=== PATIENT | male | born 1965 | race Caucasian/White ===

== ENCOUNTER 2017-06-23 00:42 | Inpatient (IN) | payer SELFPAY ==
[2017-06-23] MEDS ORDERED: NORMAL SALINE 1000 ML 1,000 ML IV ONE (00:47)
[2017-06-23] MEDS ORDERED: IPRATROPIUM/ALBUTEROL 0.5-2.5 MG/3 ML AMPUL NEB ONE (00:47)
[2017-06-23] MEDS ORDERED: LEVETIRACETAM 1500 MG/NACL-ISO 1,500 MG/100 ML RTUPB IV ONE (00:48)
--- NOTE | 2017-06-23 00:51 | ER Document Report ---
ED General - General Stated Complaint: RESPIRATORY DISTRESS Time Seen by Provider: 06/23/17 00:46 Notes: Patient is a 51-year-old male recently moved to the area from [facility] with a history of seizures, noncompliant with all seizure medications, COPD, actively smoker, and history of hypertension, who presents intoxicated with several seizures and also having a COPD exacerbation. History is provided by EMS as when patient arrives he is both postictal and intoxicated and not able to provide any meaningful history. who arrived approximately 20 minutes after arrival does report the patient appeared to be have progressively worsening difficulty breathing over the last 2 days which became much worse tonight. He then apparently had a generalized tonic-clonic seizure at which time EMS was contacted. And went to the hospital patient had 2 additional generalized tonic-clonic seizures and did have a return of consciousness between these episodes but never returned to baseline. He was given a total of 5 mg of midazolam with termination of seizures. does note the patient has been drinking heavily tonight and he has a history of heavy alcohol use. She states that he also refused to take his COPD medications at home. History is otherwise limited secondary to the acuity of patient's presentation as well as his clinical status at time of arrival. Past Medical History - General Information source: Relative - Social History Smoking Status: Current Every Day Smoker Frequency of alcohol use: Heavy Drug Abuse: None Lives with: Spouse/Significant other Family History: Reviewed & Not Pertinent Review of Systems - Review of Systems -: Yes ROS unobtainable due to patient's medical condition Physical Exam - Vital signs Vitals: Resp BP Pulse Ox 19 117/68 98 06/23/17 00:44 06/23/17 00:44 06/23/17 00:44 Interpretation: Tachycardic, Hypoxic, Tachypneic Notes: PHYSICAL EXAMINATION: GENERAL: Intoxicated, in moderate respiratory distress. HEAD: Atraumatic, normocephalic. EYES: Pupils equal round and reactive to light, extraocular movements intact, sclera anicteric, conjunctiva are normal. ENT: nares patent, oropharynx clear without exudates. Dry mucous membranes. NECK: Normal range of motion, supple without lymphadenopathy LUNGS: Tachypnea with tight air movement in all lung lion with a prolonged respiratory phase and expiratory wheezing. HEART: Regular tachycardia without murmurs ABDOMEN: Soft, nontender, normoactive bowel sounds. No guarding, no rebound. No masses appreciated. EXTREMITIES: Normal range of motion, no pitting or edema. No cyanosis. NEUROLOGICAL: Face symmetric. Tongue protrudes midline. Extraocular motions intact. Pupils are 2 mm and equally reactive. Slurred speech. 5 out of 5 strength in both the distal and proximal upper and lower extremities bilaterally. Sensation is grossly intact throughout. PSYCH: Acutely intoxicated SKIN: Warm, Dry, normal turgor, no rashes or lesions noted. Course - Re-evaluation Re-evalutation: 06/23/17 00:49 Patient presents with mild shortness of breath, wheezing, moderate tachypnea but no hypoxemia. Lung examination with wheezing in all lung lion, somewhat air movement throughout consistent with an acute COPD exacerbation. Patient was also apparently had multiple tonic-clonic events tonight consistent with seizures although he is apparently only had a postictal phase after 1 of these events. He does have a known history of seizures but is apparently noncompliant with his antiepileptic medications. He did receive a total of 5 mg of Versed prior to presentation. Patient is also acutely intoxicated. He is slurring his words and appears clinically quite drunk. This is potentially contributing to his seizures as ethanol and the acute phase does lower the seizure threshold. Will load with Keppra. Regarding his COPD exacerbation, will place on continuous nebulizers, begin IV Solu-Medrol, IV magnesium, and IV fluids. As patient has not been to this facility in the past and is a very poor historian secondary to his alcohol intoxication is unable to clarify whether or not there is any traumatic event tonight, will proceed with a CT of the head given his seizures. Will also obtain a chest x-ray, laboratories and monitor very closely. Given his multitude of complex medical problems at time of presentation, patient is critically ill and will require frequent reassessments and close monitoring. 06/23/17 01:15 Patient is having some moderate desaturation, unable to maintain saturations above 90% on 4 L by nasal cannula with continuous neb. Will transition to BiPAP given his ongoing increased work of breathing and hypoxemia. Will continue to monitor closely. He has not had any additional seizures. 06/23/17 01:57 Patient placed on BiPAP, initially pulling small tidal volumes likely secondary to mental status depression from Versed, alcohol intoxication and physical status. With aggressive noxious stimuli patient did wake up and began pulling appropriate tidal volumes. He does not meet intubation criteria. A venous blood gas has been sent. He continues to be without additional seizures. Will continue to monitor closely. 06/23/17 02:50 PCO2 is markedly elevated on initial blood gas which was obtained prior to patient being placed on BiPAP. However, unfortunately patient persists with decreased mental status and it actually appears that he is clinically worsening and I will hardly wake up to sternal rub. This is despite over an hour of BiPAP. At this point will proceed with intubation as patient continues to clinically deteriorate despite this intervention. 06/23/17 03:17 Intubation successful on first pass attempt. A stat portable chest x-ray will be obtained for postintubation care. The patient was placed on continuous ketamine for bronchodilation and sedation. 06/23/17 03:34 CT of the head will be obtained and the patient is intubated in able to be safely transported to CT scan. Chest x-ray prior does demonstrate the patient has likely an atypical pneumonia pattern and levofloxacin has been initiated for treatment. I discussed this case with Dr. Rock who agrees to admit the patient to the ICU. - Vital Signs Vital signs: Temp Pulse Resp BP Pulse Ox 20 122/77 100 06/23/17 03:01 06/23/17 03:01 06/23/17 03:01 - Laboratory Result Diagrams: 06/23/17 00:53 06/23/17 00:53 Laboratory results interpreted by me: 06/23/17 06/23/17 06/23/17 00:53 01:30 02:46 WBC 13.1 H VBG pH 7.14 L* 7.09 L* VBG pCO2 81.5 H* 91.2 H* - Diagnostic Test Radiology reviewed: Image reviewed, Reports reviewed Radiology results interpreted by me: 06/23/17 02:51 Chest x-ray: Mild patchy infiltrates bilaterally - EKG Interpretation by Me Additional EKG results interpreted by me: 06/23/17 02:52 Normal sinus rhythm. Rate 82. No ST elevations or depressions. QTC is 458. Critical Care Note - Critical Care Note Total time excluding time spent on procedures (mins): 78 Comments: Critical care time spent obtaining history from patient or surrogate, discussions with consultants, development of treatment plan with patient or surrogate, evaluation of patient's response to treatment, examination of patient , ordering and performing treatments and interventions, ordering and review of laboratory studies, re-evaluation of patient's condition, ordering and review of radiographic studies and review of old charts Discharge - Discharge Clinical Impression: COPD exacerbation, Atypical pneumonia, Seizures Respiratory failure Qualifiers: Chronicity: acute Respiratory failure complication: hypoxia and hypercapnia Qualified Code(s): J96.01 - Acute respiratory failure with hypoxia; J96.02 - Acute respiratory failure with hypercapnia; J96.02 - Acute respiratory failure with hypercapnia; J96.02 - Acute respiratory failure with hypercapnia Alcohol intoxication Qualifiers: Complication of substance-induced condition: uncomplicated Qualified Code(s): F10.920 - Alcohol use, unspecified with intoxication, uncomplicated Condition: Critical Disposition: ADMITTED INPATIENT Admitting Provider: [facility] Admitted: ICU
[2017-06-23] MEDS: MAGNESIUM SULFATE/D5W 1 GM/100 ML RTUPB IV SCH ×2 (01:05→02:18)
[2017-06-23 01:14] LABS: ABSOLUTE BASOPHILS # (AUTO) 0.1 10^3/uL (0.0-0.2); ABSOLUTE EOSINOPHILS # (AUTO) 0.3 10^3/uL (0.0-0.6); ABSOLUTE LYMPHOCYTES (AUTO) 4.7 10^3/uL (0.5-4.7); ABSOLUTE MONOCYTES (AUTO) 1.1 10^3/uL (0.1-1.4); ABSOLUTE NEUT (AUTO) 6.8 10^3/uL (1.7-8.2); BASOPHILS % (AUTO) 1.1 % (0-2); EOSINOPHILS % (AUTO) 2.3 % (0-6); HEMATOCRIT 47.2 % (37.9-51.0); HEMOGLOBIN 15.7 g/dL (13.5-17.0); HGB HCT DIFFERENCE -0.1; MEAN CORPUSCULAR HGB CONC 33.3 g/dL (32.0-36.0); MEAN CORPUSCULAR VOLUME 93 fl (80-97); MONOCYTES % (AUTO) 8.7 % (3-13); RED BLOOD COUNT 5.08 10^6/uL (4.35-5.55); RED CELL DISTRIBUTION WIDTH 13.5 % (11.5-14.0); SEGMENTED NEUTROPHILS % (AUTO) 51.9 % (42-78); WHITE BLOOD COUNT 13.1 10^3/uL (4.0-10.5)
[2017-06-23] MEDS ORDERED: ALBUTEROL SULFATE 0.083% NEB 2.5 MG/3 ML AMPUL NEB ONE (01:15)
[2017-06-23 01:41] LABS: ALANINE AMINOTRANSFERASE 26 U/L (21-72); ALBUMIN 4.2 g/dL (3.5-5.0); ALCOHOL 224 mg/dL (NONE DETECTED); ALKALINE PHOSPHATASE 123 U/L (38-126); ANION GAP 16 (5-19); ASPARTATE AMINO TRANSFERASE 18 U/L (17-59); BILIRUBIN,DIRECT 0.3 mg/dL (0.0-0.4); BILIRUBIN,TOTAL 0.4 mg/dL (0.2-1.3); BLOOD UREA NITROGEN 7 mg/dL (7-20); CALCIUM 9.3 mg/dL (8.4-10.2); CARBON DIOXIDE 23 mmol/L (22-30); CHLORIDE 103 mmol/L (98-107); CREATININE RESULT 0.63 mg/dL (0.52-1.25); GLUCOSE 108 mg/dL (75-110); SODIUM 141.9 mmol/L (137-145)
[2017-06-23] MEDS ORDERED: METHYLPREDNISOLONE INJ 125 MG/2 ML SDV IV ONE (01:47)
[2017-06-23] MEDS ORDERED: LEVETIRACETAM INJ/PF 500 MG/5 ML SDV IV ONE (01:54)
[2017-06-23 02:03] LABS: VENOUS BLOOD BASE EXCESS -4.9 mmol/L; VENOUS BLOOD HCO3 26.8 mmol/L (20-32)
[2017-06-23 02:04] LABS: VENOUS BLOOD PCO2 81.5 mmHg (35-63); VENOUS BLOOD PH 7.14 (7.30-7.42)
--- NOTE | 2017-06-23 02:12 | RADIOLOGY REPORT (SQ) ---
EXAM DESCRIPTION: CHEST SINGLE VIEW COMPLETED DATE/TIME: 06/23/2017 1:37 am REASON FOR STUDY: sob COMPARISON: None. EXAM PARAMETERS: NUMBER OF VIEWS: One view. TECHNIQUE: Single frontal radiographic view of the chest acquired. RADIATION DOSE: NA LIMITATIONS: None. FINDINGS: LUNGS AND PLEURA: Moderate mixed reticular nodular markings with small nodularity at the l eft lung base. Adequate lung volume. MEDIASTINUM AND HILAR STRUCTURES: No masses. Contour normal. HEART AND VASCULAR STRUCTURES: Heart normal in size. Normal vasculature. BONES: No acute findings. HARDWARE: None in the chest. OTHER: No other significant finding. IMPRESSION: [id number] reticulonodular interstitial markings; differential diagnosis includes atypical pneumonia, mild pulmonary edema, and chronic interstitial lung disease. TECHNICAL DOCUMENTATION: JOB ID: [id number] [employer]- All Rights Reserved
[2017-06-23] MEDS ORDERED: LEVOFLOXACIN 750 MG/D5W RTU 750 MG/150 ML RTUPB IV ONE (02:51)
[2017-06-23] MEDS ORDERED: ETOMIDATE INJ/PF 20 MG/10 ML SDV IV ONE (02:58)
[2017-06-23] MEDS ORDERED: KETAMINE HCL INJ 500 MG/10 ML VIAL ONE ×2 (02:59→03:17)
[2017-06-23] MEDS ORDERED: ROCURONIUM BROMIDE INJ 50 MG/5 ML VIAL IV ONE ×2 (03:10→11:21)
[2017-06-23] MEDS ORDERED: KETAMINE HCL INJ 500 MG/10 ML VIAL IV SCH (03:10)
[2017-06-23] MEDS ORDERED: KETAMINE HCL INJ 500 MG/10 ML VIAL IV ONE ×2 (03:10→03:16)
[2017-06-23 03:14] LABS: VENOUS BLOOD BASE EXCESS -5.7 mmol/L; VENOUS BLOOD HCO3 27.3 mmol/L (20-32)
[2017-06-23 03:23] LABS: VENOUS BLOOD PCO2 91.2 mmHg (35-63); VENOUS BLOOD PH 7.09 (7.30-7.42)
--- NOTE | 2017-06-23 03:45 | RADIOLOGY REPORT (SQ) ---
EXAM DESCRIPTION: CHEST SINGLE VIEW COMPLETED DATE/TIME: 06/23/2017 3:29 am REASON FOR STUDY: post-intubation COMPARISON: None. EXAM PARAMETERS: NUMBER OF VIEWS: One view. TECHNIQUE: Single frontal radiographic view of the chest acquired. RADIATION DOSE: NA LIMITATIONS: None. FINDINGS: LUNGS AND PLEURA: Moderate interstitial markings. MEDIASTINUM AND HILAR STRUCTURES: No masses. Contour normal. HEART AND VASCULAR STRUCTURES: Heart normal in size. Normal vasculature. BONES: No acute findings. HARDWARE: Adequate appearing endotracheal tube. Likely adequate NG tube obscured distally. OTHER: No other significant finding. IMPRESSION: Interval intubation. Otherwise no significant change. TECHNICAL DOCUMENTATION: JOB ID: [id number] [employer]- All Rights Reserved
--- NOTE | 2017-06-23 04:23 | RADIOLOGY REPORT (SQ) ---
EXAM DESCRIPTION: CT HEAD WITHOUT COMPLETED DATE/TIME: 06/23/2017 3:57 am REASON FOR STUDY: ams, seizures COMPARISON: None. TECHNIQUE: Axial images acquired through the brain without intravenous contrast. Images reviewed wi th bone, brain and subdural windows. Images stored on PACS. All CT scanners at this facility use dose modulation, iterative reconstruction, and/or weight based d osing when appropriate to reduce radiation dose to as low as reasonably achievable (ALARA). [facility]: Dose Right [facility]: CareDose [facility]: Dose Right [facility]: Teradose 4D [facility]: Kili RADIATION DOSE: CT Rad equipment meets quality standard of care and radiation dose reduction techniq ues were employed. CTDIvol: 49.9 mGy. DLP: 980 mGy-cm. mGy. LIMITATIONS: None. FINDINGS: VENTRICLES: Normal size and contour. CEREBRUM: No masses. No hemorrhage. No midline shift. No evidence for acute infarction. Normal gra y/white matter differentiation. No areas of low density in the white matter. CEREBELLUM: No masses. No hemorrhage. No alteration of density. No evidence for acute infarction. EXTRAAXIAL SPACES: No fluid collections. No masses. ORBITS AND GLOBE: No intra- or extraconal masses. Normal contour of globe without masses. CALVARIUM: No fracture. PARANASAL SINUSES: No fluid or mucosal thickening. SOFT TISSUES: No mass or hematoma. OTHER: Partially imaged endotracheal and orogastric tubes. IMPRESSION: No acute intracranial findings. Lines and tubes. EVIDENCE OF ACUTE STROKE: NO. COMMENT: Quality ID # [id number]: Final reports with documentation of one or more dose reduction techniques (e.g., Automated exposure control, adjustment of the mA and/or kV according to patient size, use of iterative reconstruction technique) TECHNICAL DOCUMENTATION: JOB ID: [id number] [employer]- All Rights Reserved
[2017-06-23 04:30] LABS: CREATINE KINASE MB 1.34 ng/mL (<4.55)
[2017-06-23] MEDS ORDERED: PROPOFOL 100 ML IV ONE ×2 (04:31→06:37)
[2017-06-23 04:38] LABS: TROPONIN I < 0.012 ng/mL
[2017-06-23] MEDS ORDERED: DEXTROSE 5%-WATER 250 ML with NOREPINEPHRINE BITARTRATE 4 MG IV PRN ×2 (07:30)
[2017-06-23 07:36] LABS: CREATINE KINASE MB 1.52 ng/mL (<4.55)
[2017-06-23] MEDS ORDERED: INFLUENZA ADLT QUAD (36MOS+) 2017-18 VAC 0.5 ML SYR IM PRN (07:36)
[2017-06-23 07:39] LABS: TROPONIN I < 0.012 ng/mL
--- NOTE | 2017-06-23 07:41 | PDOC H&P ---
History of Present Illness Admission Date/PCP: 06/23/17 03:39 Patient complains of: Seizure History of Present Illness: WILLIAM MAGALLON is a 51 year old male with a past medical history of seizure disorder, COPD, tobacco and alcohol dependence. Patient presents after a tonic- clonic seizure with respiratory distress following noncompliance with medications and several 40 ounce malt liquor drinks. In the emergency room he has another seizure and is unreliably protecting his airway and intubated. He is referred to the hospitalist for admission Past Medical History Pulmonary Medical History: Reports: Asthma, Chronic Obstructive Pulmonary Disease (COPD), Pneumonia Neurological Medical History: Reports: Seizures Psychiatric Medical History: Reports: Alcohol Dependency, Tobacco Dependency Social History Information Source: Relative, Emergency Med Personnel Lives with: Spouse/Significant other Smoking Status: Current Every Day Smoker Frequency of Alcohol Use: Heavy - Advance Directive Resuscitation Status: Full Code Family History Family History: COPD Parental Family History Reviewed: Yes - Unobtainable Children Family History Reviewed: Yes - Unobtainable Sibling(s) Family History Reviewed.: Yes - Unobtainable Review of Systems ROS unobtainable: Due to mental status Physical Exam Vital Signs: Temp Pulse Resp BP Pulse Ox 97.7 F 92 16 95/60 L 96 06/23/17 06:13 06/23/17 05:35 06/23/17 06:13 06/23/17 06:13 06/23/17 06:13 Intake & Output 06/21/17 06/22/17 06/23/17 11:59 11:59 11:59 Intake Total 505 Output Total 1100 Balance -595 Weight 72.6 kg General appearance: PRESENT: mild distress, other - Intubated sedated appearing comfortable on ventilator Head exam: PRESENT: atraumatic, normocephalic Eye exam: PRESENT: conjunctiva pink, EOMI, PERRLA. ABSENT: scleral icterus Ear exam: PRESENT: normal external ear exam Mouth exam: PRESENT: moist, tongue midline Neck exam: ABSENT: carotid bruit, JVD, lymphadenopathy, thyromegaly Respiratory exam: PRESENT: accessory muscle use, crackles, retraction, rhonchi, symmetrical, tachypnea Cardiovascular exam: PRESENT: RRR. ABSENT: diastolic murmur, rubs, systolic murmur Pulses: PRESENT: normal dorsalis pedis pul Vascular exam: PRESENT: normal capillary refill GI/Abdominal exam: PRESENT: normal bowel sounds, soft. ABSENT: distended, guarding, mass, organolmegaly, rebound, tenderness Rectal exam: PRESENT: deferred Extremities exam: PRESENT: full ROM. ABSENT: calf tenderness, clubbing, pedal edema Neurological exam: PRESENT: altered, other - Intubated and sedated Skin exam: PRESENT: dry, intact, warm. ABSENT: cyanosis, rash Results Laboratory Results: 06/23/17 06:59 Creatine Kinase 93 Impressions: Head CT 06/23/17 00:48 IMPRESSION: No acute intracranial findings. Lines and tubes. EVIDENCE OF ACUTE STROKE: NO. Chest X-Ray 06/23/17 03:17 IMPRESSION: Interval intubation. Otherwise no significant change. Assessment & Plan - Diagnosis (1) Respiratory failure Qualifiers: Chronicity: acute Respiratory failure complication: hypoxia and hypercapnia Qualified Code(s): J96.01 - Acute respiratory failure with hypoxia ; J96.02 - Acute respiratory failure with hypercapnia; J96.02 - Acute respiratory failure with hypercapnia; J96.02 - Acute respiratory failure with hypercapnia Is this a current diagnosis for this admission?: Yes Plan: Following seizure with suspected aspiration complicated by COPD exacerbation. ICU admission ventilator support empiric antibiotics, albuterol and Atrovent, consider pulmonology consultation. Follow-up CBC sputum and blood culture and chest x-ray (2) Alcohol intoxication Qualifiers: Complication of substance-induced condition: uncomplicated Qualified Code(s ): F10.920 - Alcohol use, unspecified with intoxication, uncomplicated Is this a current diagnosis for this admission?: Yes Plan: Complicated by alcohol dependence and seizure. Anticipate alcohol withdrawal DTs, as needed benzodiazepine thiamine and folate ordered (3) Atypical pneumonia Is this a current diagnosis for this admission?: Yes Plan: Likely early aspiration pneumonitis anticipated follow-up imaging to show aspiration pneumonia secondary to seizure. Empiric antibiotics ordered. (4) Seizures Is this a current diagnosis for this admission?: Yes Plan: Complicated by alcohol dependence and noncompliance. To prevent and Keppra IV ordered - Time Time Spent: 50 to 70 Minutes - Inpatient Certification Medical Necessity: Need Close Monitoring Due to Risk of Patient Decompensation
[2017-06-23] MEDS: IPRATROPIUM/ALBUTEROL 0.5-2.5 MG/3 ML AMPUL NEB SCH ×3 (08:16→20:32)
[2017-06-23 08:35] LABS: ARTERIAL BLOOD BASE EXCESS -3.3 mmol/L; ARTERIAL BLOOD O2 SATURATION 96.1 % (94-98)
[2017-06-23] MEDS: LEVOFLOXACIN 750 MG/D5W RTU 750 MG/150 ML RTUPB IV SCH (09:36)
[2017-06-23] MEDS: HEPARIN SOD (PORCINE) 5,000 UNIT/ML 1 ML SYRINGE SUBCUT SCH ×3 (09:37→22:39)
[2017-06-23] MEDS: LANSOPRAZOLE 30 MG TAB.RAP.DR NG SCH ×2 (09:37→17:13)
[2017-06-23] MEDS: THIAMINE HCL 100 MG, FOLIC ACID 1 MG in NORMAL SALINE 250 ML IV SCH (09:43)
[2017-06-23] MEDS ORDERED: LEVETIRACETAM 1000 MG/NACL-ISO 1,000 MG/100 ML RTUPB IV SCH (10:00)
[2017-06-23] MEDS: PROPOFOL 100 ML IV PRN ×4 (10:03→23:14)
[2017-06-23] MEDS: MIDAZOLAM HCL 100 ML IV PRN ×3 (10:04→21:15)
[2017-06-23] MEDS ORDERED: PROPOFOL 100 ML IV PRN (11:56)
[2017-06-23 11:58] LABS: ARTERIAL BLOOD BASE EXCESS -0.2 mmol/L; ARTERIAL BLOOD O2 SATURATION 94.9 % (94-98)
--- NOTE | 2017-06-23 13:38 | PDOC CONSULTATION ---
Consultation Consult Date: 06/23/17 Attending physician:: CHAPITO STAUFFER Consult reason:: acute resp failure History of Present Illness Admission Date/PCP: 06/23/17 03:39 History of Present Illness: 51-year-old male with known history of alcohol and tobacco abuse presented to the emergency room with several episodes of seizing is unable to control his airway and was subsequently intubated during the course of intubation or just prior to the patient did have some evidence of aspiration. He currently is intubated and sedated Past Medical History Pulmonary Medical History: Reports: Asthma, Chronic Obstructive Pulmonary Disease (COPD), Pneumonia Neurological Medical History: Reports: Seizures Psychiatric Medical History: Reports: Alcohol Dependency, Tobacco Dependency Social History Information Source: [facility] Records Lives with: Spouse/Significant other Smoking Status: Current Every Day Smoker Frequency of Alcohol Use: Heavy - Advance Directive Resuscitation Status: Full Code Family History Family History: COPD Parental Family History Reviewed: No Children Family History Reviewed: No Sibling(s) Family History Reviewed.: No Medication/Allergy Home Medications: No Home Medications 06/23/17 Allergies/Adverse Reactions: Penicillins Allergy (Unverified 06/23/17 12:25) mycins Allergy (Uncoded 06/23/17 12:25) Review of Systems ROS unobtainable: Due to endotracheal tube, Due to mental status Physical Exam Vital Signs: Temp Pulse Resp BP Pulse Ox 97.7 F 85 17 100/63 98 06/23/17 08:00 06/23/17 08:00 06/23/17 08:00 06/23/17 08:00 06/23/17 08:00 Intake & Output 06/22/17 06/23/17 06/24/17 06:59 06:59 06:59 Intake Total 505 Output Total 1100 225 Balance -595 -225 Weight 72.6 kg General appearance: PRESENT: no acute distress, disheveled, well-developed Head exam: PRESENT: atraumatic, normocephalic Eye exam: PRESENT: conjunctiva pale Mouth exam: PRESENT: dry mucosa, neck supple, tongue midline, other - ET tube in place Teeth exam: PRESENT: poor dentation Neck exam: ABSENT: carotid bruit, JVD, lymphadenopathy, thyromegaly Respiratory exam: PRESENT: crackles, decreased breath sounds, prolonged expiratory phas, rhonchi, symmetrical, unlabored. ABSENT: accessory muscle use , chest wall tenderness, clear to auscultation samuel, rales, retraction, stridor, tachypnea Cardiovascular exam: PRESENT: RRR, +S1, +S2. ABSENT: irregular rhythm, tachycardia Pulses: PRESENT: normal radial pulses GI/Abdominal exam: PRESENT: normal bowel sounds, soft. ABSENT: distended, guarding, mass, organolmegaly, rebound, tenderness Gentrourinary exam: PRESENT: indwelling catheter Extremities exam: ABSENT: calf tenderness, clubbing, joint swelling, pedal edema , tenderness, +1 edema, +2 edema Musculoskeletal exam: ABSENT: ambulatory, deformity, dislocation, tenderness Neurological exam: ABSENT: altered Skin exam: PRESENT: dry, pallor, warm Results Laboratory Results: 06/23/17 08:20 Carbonic Acid 1.70 H HCO3/H2CO3 Ratio 14:1 ABG pH 7.26 L ABG pCO2 56.4 H ABG pO2 94.5 ABG HCO3 24.8 ABG O2 Saturation 96.1 ABG Base Excess -3.3 FiO2 60% 06/23/17 06/23/17 06:59 06:59 Creatine Kinase 93 CK-MB (CK-2) 1.52 Troponin I < 0.012 Impressions: Head CT 06/23/17 00:48 IMPRESSION: No acute intracranial findings. Lines and tubes. EVIDENCE OF ACUTE STROKE: NO. Chest X-Ray 06/23/17 03:17 IMPRESSION: Interval intubation. Otherwise no significant change. Assessment & Plan - Diagnosis (1) Aspiration pneumonia due to inhalation of vomitus Is this a current diagnosis for this admission?: Yes Plan: Labs- All tests 24 hr 06/23/17 00:53 WBC 13.1 H 06/23/17 05:33 Gram Stain - Preliminary Tracheal Aspirate Sputum Culture - Pending (2) COPD exacerbation Is this a current diagnosis for this admission?: Yes Plan: Bronchodilator therapy and ventilatory support (3) Respiratory failure Qualifiers: Chronicity: acute Respiratory failure complication: hypoxia and hypercapnia Qualified Code(s): J96.01 - Acute respiratory failure with hypoxia ; J96.02 - Acute respiratory failure with hypercapnia; J96.02 - Acute respiratory failure with hypercapnia; J96.02 - Acute respiratory failure with hypercapnia Is this a current diagnosis for this admission?: Yes Plan: Labs- All tests 24 hr 06/23/17 06/23/1717 01:30 02:46 08:20 ABG pH 7.26 L ABG pCO2 56.4 H ABG pO2 94.5 VBG pH 7.14 L* 7.09 L* VBG pCO2 81.5 H* 91.2 H* FiO2 60% 06/23/17 11:45 ABG pH 7.33 L ABG pCO2 52.8 H ABG pO2 80.2 VBG pH VBG pCO2 FiO2 45% (4) Seizures Is this a current diagnosis for this admission?: Yes Plan: 2 at time of admission noncompliant with seizure medication currently on a benzodiazepine. - Time Time Spent with patient: 50 minutes ICU time
[2017-06-23 13:47] LABS: CREATINE KINASE MB 1.14 ng/mL (<4.55)
[2017-06-23 13:49] LABS: TROPONIN I < 0.012 ng/mL
--- NOTE | 2017-06-23 15:04 | Progress Note ---
Provider Note Provider Note: Mr. Estrada is a 51-year-old male with a history of seizure disorder, COPD, tobacco and alcohol dependence who presented to the emergency department after experiencing seizures at home. He has reportedly been noncompliant with his medications, and drinks several 40 ounce malt liquor beverages per day. In the emergency department, he had another seizure and was intubated to protect his airway. He was admitted to the ICU for further evaluation and treatment. Pulmonary was consulted. He has been seen by . He is sedated on Versed drip as well as propofol. He is receiving IV fluids. He has also received thiamine and folic acid IV. He may have aspirated, and therefore was started on levofloxacin as well. He has a nasogastric tube in place for gastric decompression, that can also be used for enteral nutrition if he is not liberated from the ventilator in the next 24-48 hours.
--- NOTE | 2017-06-23 19:31 | EKG REPORT ---
SEVERITY:- BORDERLINE ECG - SINUS RHYTHM PROBABLE LEFT ATRIAL ABNORMALITY BORDERLINE RIGHT AXIS DEVIATION : Confirmed by: Tereza Birmingham MD 23-Jun-2017 19:30:51
[2017-06-23] MEDS: 1/2 NORMAL SALINE 1,000 ML IV PRN (21:16)
[2017-06-24] MEDS: IPRATROPIUM/ALBUTEROL 0.5-2.5 MG/3 ML AMPUL NEB SCH ×4 (02:15→19:48)
[2017-06-24] MEDS: PROPOFOL 100 ML IV PRN ×6 (03:20→23:19)
[2017-06-24] MEDS: MIDAZOLAM HCL 100 ML IV PRN ×2 (03:20→19:28)
[2017-06-24 04:23] LABS: ABSOLUTE BASOPHILS # (AUTO) 0.1 10^3/uL (0.0-0.2); ABSOLUTE LYMPHOCYTES (AUTO) 2.7 10^3/uL (0.5-4.7); ABSOLUTE MONOCYTES (AUTO) 1.5 10^3/uL (0.1-1.4); ABSOLUTE NEUT (AUTO) 11.7 10^3/uL (1.7-8.2); BASOPHILS % (AUTO) 0.6 % (0-2); HEMATOCRIT 43.4 % (37.9-51.0); HEMOGLOBIN 14.3 g/dL (13.5-17.0); HGB HCT DIFFERENCE -0.5; LYMPHOCYTES % (AUTO) 16.9 % (13-45); MEAN CORPUSCULAR HEMOGLOBIN 30.7 pg (27.0-33.4); MEAN CORPUSCULAR VOLUME 93 fl (80-97); MONOCYTES % (AUTO) 9.3 % (3-13); RED BLOOD COUNT 4.66 10^6/uL (4.35-5.55); RED CELL DISTRIBUTION WIDTH 13.8 % (11.5-14.0); SEGMENTED NEUTROPHILS % (AUTO) 73.2 % (42-78)
[2017-06-24 04:41] LABS: ALANINE AMINOTRANSFERASE 25 U/L (21-72); ALBUMIN 3.5 g/dL (3.5-5.0); ALKALINE PHOSPHATASE 93 U/L (38-126); ANION GAP 9 (5-19); ASPARTATE AMINO TRANSFERASE 13 U/L (17-59); BILIRUBIN,DIRECT 0.3 mg/dL (0.0-0.4); BILIRUBIN,TOTAL 0.3 mg/dL (0.2-1.3); BLOOD UREA NITROGEN 8 mg/dL (7-20); CARBON DIOXIDE 26 mmol/L (22-30); CHLORIDE 108 mmol/L (98-107); CREATININE RESULT 0.65 mg/dL (0.52-1.25); GLUCOSE 104 mg/dL (75-110); POTASSIUM 3.9 mmol/L (3.6-5.0); SODIUM 142.7 mmol/L (137-145); TOTAL PROTEIN 6.2 g/dL (6.3-8.2)
[2017-06-24] MEDS: HEPARIN SOD (PORCINE) 5,000 UNIT/ML 1 ML SYRINGE SUBCUT SCH ×3 (05:12→21:17)
[2017-06-24] MEDS: LANSOPRAZOLE 30 MG TAB.RAP.DR NG SCH ×2 (05:12→16:40)
[2017-06-24 05:45] LABS: ARTERIAL BLOOD BASE EXCESS 0.4 mmol/L
[2017-06-24] MEDS: 1/2 NORMAL SALINE 1,000 ML IV PRN ×2 (07:24→18:45)
--- NOTE | 2017-06-24 07:53 | RADIOLOGY REPORT (SQ) ---
EXAM DESCRIPTION: CHEST SINGLE VIEW COMPLETED DATE/TIME: 06/24/2017 6:09 am REASON FOR STUDY: Aspiration Pneumonia / Intubation COMPARISON: 06/23/2017. EXAM PARAMETERS: NUMBER OF VIEWS: One view. TECHNIQUE: Single frontal radiographic view of the chest acquired. RADIATION DOSE: NA LIMITATIONS: None. FINDINGS: LUNGS AND PLEURA: Prominent interstitium. MEDIASTINUM AND HILAR STRUCTURES: No masses. Contour normal. HEART AND VASCULAR STRUCTURES: Heart normal in size. Normal vasculature. BONES: No acute findings. HARDWARE: Adequate appearing endotracheal tube. Likely adequate enteric tube obscured distally. OTHER: No other significant finding. IMPRESSION: No significant interval change. TECHNICAL DOCUMENTATION: JOB ID: [id number] [employer]- All Rights Reserved
[2017-06-24] MEDS: LEVOFLOXACIN 750 MG/D5W RTU 750 MG/150 ML RTUPB IV SCH (09:24)
[2017-06-24] MEDS: THIAMINE HCL 100 MG, FOLIC ACID 1 MG in NORMAL SALINE 250 ML IV SCH (09:40)
--- NOTE | 2017-06-24 10:11 | PDOC PROGRESS REPORT ---
Subjective Progress Note for:: 06/24/17 Subjective:: Patient intubated and sedated. Physical Exam Vital Signs: Temp Pulse Resp BP Pulse Ox 97.9 F 76 20 122/74 95 06/24/17 06:00 06/24/17 08:46 06/24/17 08:46 06/24/17 05:59 06/24/17 08:59 Intake & Output 06/23/17 06/24/17 06/25/17 06:59 06:59 06:59 Intake Total 505 3193 Output Total 1100 2885 50 Balance -595 308 -50 Weight 72.6 kg 71.7 kg General appearance: PRESENT: no acute distress Eye exam: PRESENT: conjunctiva pink. ABSENT: scleral icterus Ear exam: PRESENT: normal external ear exam Mouth exam: PRESENT: moist, tongue midline Neck exam: ABSENT: JVD Respiratory exam: PRESENT: clear to auscultation samuel. ABSENT: rales, rhonchi, wheezes Cardiovascular exam: PRESENT: RRR. ABSENT: diastolic murmur, rubs, systolic murmur GI/Abdominal exam: PRESENT: normal bowel sounds, soft. ABSENT: distended, guarding, mass, organolmegaly, rebound, tenderness Extremities exam: ABSENT: calf tenderness, clubbing, pedal edema Neurological exam: PRESENT: other - Intubated and sedated Psychiatric exam: PRESENT: other - Unable to assess Skin exam: PRESENT: dry, intact, warm. ABSENT: cyanosis, rash Results Laboratory Results: 06/24/17 04:03 06/24/17 04:03 06/23/17 06/23/17 06/24/17 06:59 11:45 04:03 WBC 16.0 H RBC 4.66 Hgb 14.3 Hct 43.4 MCV 93 MCH 30.7 MCHC 33.0 RDW 13.8 Plt Count 211 Seg Neutrophils % 73.2 Lymphocytes % 16.9 Monocytes % 9.3 Eosinophils % 0.0 Basophils % 0.6 Absolute Neutrophils 11.7 H Absolute Lymphocytes 2.7 Absolute Monocytes 1.5 H Absolute Eosinophils 0.0 Absolute Basophils 0.1 Carbonic Acid 1.59 H HCO3/H2CO3 Ratio 16:1 ABG pH 7.33 L ABG pCO2 52.8 H ABG pO2 80.2 ABG HCO3 26.9 H ABG O2 Saturation 94.9 ABG Base Excess -0.2 FiO2 45% Sodium Potassium Chloride Carbon Dioxide Anion Gap BUN Creatinine Est GFR ( Amer) Est GFR (Non-Af Amer) Glucose Calcium Total Bilirubin AST ALT Alkaline Phosphatase Total Protein Albumin Triglycerides 173 H 06/24/17 06/24/17 04:03 05:20 WBC RBC Hgb Hct MCV MCH MCHC RDW Plt Count Seg Neutrophils % Lymphocytes % Monocytes % Eosinophils % Basophils % Absolute Neutrophils Absolute Lymphocytes Absolute Monocytes Absolute Eosinophils Absolute Basophils Carbonic Acid 1.29 HCO3/H2CO3 Ratio 19:1 ABG pH 7.39 ABG pCO2 42.9 ABG pO2 109.7 H ABG HCO3 25.6 ABG O2 Saturation 98.0 ABG Base Excess 0.4 FiO2 45% Sodium 142.7 Potassium 3.9 Chloride 108 H Carbon Dioxide 26 Anion Gap 9 BUN 8 Creatinine 0.65 Est GFR ( Amer) > 60 Est GFR (Non-Af Amer) > 60 Glucose 104 Calcium 9.0 Total Bilirubin 0.3 AST 13 L ALT 25 Alkaline Phosphatase 93 Total Protein 6.2 L Albumin 3.5 Triglycerides 06/23/17 06/23/17 06/23/17 06:59 06:59 13:05 Creatine Kinase 93 68 CK-MB (CK-2) 1.52 Troponin I < 0.012 06/23/17 13:05 Creatine Kinase CK-MB (CK-2) 1.14 Troponin I < 0.012 Impressions: Head CT 06/23/17 00:48 IMPRESSION: No acute intracranial findings. Lines and tubes. EVIDENCE OF ACUTE STROKE: NO. Chest X-Ray 06/24/17 06:00 IMPRESSION: No significant interval change. Assessment & Plan - Diagnosis (1) Respiratory failure Qualifiers: Chronicity: acute Respiratory failure complication: hypoxia and hypercapnia Qualified Code(s): J96.01 - Acute respiratory failure with hypoxia ; J96.02 - Acute respiratory failure with hypercapnia; J96.02 - Acute respiratory failure with hypercapnia; J96.02 - Acute respiratory failure with hypercapnia Is this a current diagnosis for this admission?: Yes Plan: Patient had seizures and possibly aspirated. Patient is currently on the ventilator. He is oxygenating well and will see if we can wean him off the ventilator today. (2) Atypical pneumonia Is this a current diagnosis for this admission?: Yes Plan: Continue with the Levaquin. (3) Alcohol intoxication Qualifiers: Complication of substance-induced condition: uncomplicated Qualified Code(s ): F10.920 - Alcohol use, unspecified with intoxication, uncomplicated Is this a current diagnosis for this admission?: Yes Plan: He has a history of alcohol abuse and did have a seizure. Is not clear whether this was an alcohol withdrawal seizure versus his underlying seizure disorder. (4) Seizures Is this a current diagnosis for this admission?: Yes Plan: We will continue with Otilio IV. - Time Time Spent with patient: 15-24 minutes - Inpatient Certification Medical Necessity: Need Close Monitoring Due to Risk of Patient Decompensation, Need for IV Antibiotics
[2017-06-24] MEDS: LEVETIRACETAM 500 MG/NACL-ISO 500 MG/100 ML RTUPB IV SCH (21:16)
[2017-06-25] MEDS: IPRATROPIUM/ALBUTEROL 0.5-2.5 MG/3 ML AMPUL NEB SCH ×4 (01:16→19:17)
[2017-06-25] MEDS: MIDAZOLAM HCL 100 ML IV PRN ×3 (02:08→19:57)
[2017-06-25 04:19] LABS: ABSOLUTE BASOPHILS # (AUTO) 0.2 10^3/uL (0.0-0.2); ABSOLUTE EOSINOPHILS # (AUTO) 0.1 10^3/uL (0.0-0.6); ABSOLUTE LYMPHOCYTES (AUTO) 3.1 10^3/uL (0.5-4.7); ABSOLUTE MONOCYTES (AUTO) 1.3 10^3/uL (0.1-1.4); ABSOLUTE NEUT (AUTO) 9.2 10^3/uL (1.7-8.2); BASOPHILS % (AUTO) 1.1 % (0-2); EOSINOPHILS % (AUTO) 0.4 % (0-6); HEMATOCRIT 42.9 % (37.9-51.0); HEMOGLOBIN 14.2 g/dL (13.5-17.0); HGB HCT DIFFERENCE -0.3; LYMPHOCYTES % (AUTO) 22.4 % (13-45); MEAN CORPUSCULAR HEMOGLOBIN 30.8 pg (27.0-33.4); MEAN CORPUSCULAR HGB CONC 33.1 g/dL (32.0-36.0); MEAN CORPUSCULAR VOLUME 93 fl (80-97); MONOCYTES % (AUTO) 9.7 % (3-13); RED BLOOD COUNT 4.61 10^6/uL (4.35-5.55); RED CELL DISTRIBUTION WIDTH 14.2 % (11.5-14.0); SEGMENTED NEUTROPHILS % (AUTO) 66.4 % (42-78); WHITE BLOOD COUNT 13.9 10^3/uL (4.0-10.5)
[2017-06-25 04:40] LABS: ANION GAP 9 (5-19); BLOOD UREA NITROGEN 6 mg/dL (7-20); CALCIUM 8.7 mg/dL (8.4-10.2); CARBON DIOXIDE 26 mmol/L (22-30); CHLORIDE 109 mmol/L (98-107); CREATININE RESULT 0.59 mg/dL (0.52-1.25); GLUCOSE 88 mg/dL (75-110); MAGNESIUM 2.1 mg/dL (1.6-2.3); POTASSIUM 3.7 mmol/L (3.6-5.0); SODIUM 143.9 mmol/L (137-145)
[2017-06-25] MEDS: PROPOFOL 100 ML IV PRN ×5 (04:52→23:04)
[2017-06-25 05:19] LABS: ARTERIAL BLOOD BASE EXCESS 3.1 mmol/L; ARTERIAL BLOOD O2 SATURATION 93.8 % (94-98)
[2017-06-25] MEDS: HEPARIN SOD (PORCINE) 5,000 UNIT/ML 1 ML SYRINGE SUBCUT SCH ×3 (05:59→21:30)
[2017-06-25] MEDS: LANSOPRAZOLE 30 MG TAB.RAP.DR NG SCH ×2 (06:00→16:46)
[2017-06-25] MEDS: 1/2 NORMAL SALINE 1,000 ML IV PRN ×2 (06:01→16:47)
--- NOTE | 2017-06-25 07:47 | RADIOLOGY REPORT (SQ) ---
EXAM DESCRIPTION: CHEST SINGLE VIEW COMPLETED DATE/TIME: 06/25/2017 6:27 am REASON FOR STUDY: resp failure/pna COMPARISON: 06/24/2017. EXAM PARAMETERS: NUMBER OF VIEWS: One view. TECHNIQUE: Single frontal radiographic view of the chest acquired. RADIATION DOSE: NA LIMITATIONS: None. FINDINGS: LUNGS AND PLEURA: Mild interstitial markings. MEDIASTINUM AND HILAR STRUCTURES: No masses. Contour normal. HEART AND VASCULAR STRUCTURES: Heart normal in size. Normal vasculature. BONES: Small deformity of the right posterior mid hemithorax. HARDWARE: Adequate appearing endotracheal tube and likely adequate NG tube obscured distally. OTHER: No other significant finding. IMPRESSION: No significant interval change. TECHNICAL DOCUMENTATION: JOB ID: [id number] [employer]- All Rights Reserved
[2017-06-25] MEDS: THIAMINE HCL 100 MG, FOLIC ACID 1 MG in NORMAL SALINE 250 ML IV SCH (09:14)
[2017-06-25] MEDS: LEVETIRACETAM 500 MG/NACL-ISO 500 MG/100 ML RTUPB IV SCH ×2 (09:15→21:30)
[2017-06-25] MEDS: LEVOFLOXACIN 750 MG/D5W RTU 750 MG/150 ML RTUPB IV SCH (09:15)
--- NOTE | 2017-06-25 10:26 | PDOC PROGRESS REPORT ---
Subjective Progress Note for:: 06/25/17 Subjective:: Patient intubated and sedated. Physical Exam Vital Signs: Temp Pulse Resp BP Pulse Ox 97.5 F 66 20 101/63 94 06/25/17 08:00 06/25/17 08:00 06/25/17 08:00 06/25/17 08:00 06/25/17 08:00 Intake & Output 06/24/17 06/25/17 06/26/17 06:59 06:59 06:59 Intake Total 3193 3524 Output Total 2885 3025 100 Balance 308 499 -100 Weight 71.7 kg 72.4 kg General appearance: PRESENT: no acute distress Eye exam: PRESENT: conjunctiva pink. ABSENT: scleral icterus Mouth exam: PRESENT: moist, tongue midline Neck exam: ABSENT: JVD Respiratory exam: PRESENT: clear to auscultation samuel. ABSENT: rales, rhonchi, wheezes Cardiovascular exam: PRESENT: RRR. ABSENT: diastolic murmur, rubs, systolic murmur GI/Abdominal exam: PRESENT: normal bowel sounds, soft. ABSENT: distended, guarding, mass, organolmegaly, rebound, tenderness Extremities exam: ABSENT: calf tenderness, clubbing, pedal edema Neurological exam: PRESENT: other - Intubated and sedated Psychiatric exam: PRESENT: other - Unable to assess Skin exam: PRESENT: dry, intact, warm. ABSENT: cyanosis, rash Results Laboratory Results: 06/25/17 03:51 06/25/17 03:51 06/25/17 06/25/17 06/25/17 03:51 03:51 05:00 WBC 13.9 H RBC 4.61 Hgb 14.2 Hct 42.9 MCV 93 MCH 30.8 MCHC 33.1 RDW 14.2 H Plt Count 192 Seg Neutrophils % 66.4 Lymphocytes % 22.4 Monocytes % 9.7 Eosinophils % 0.4 Basophils % 1.1 Absolute Neutrophils 9.2 H Absolute Lymphocytes 3.1 Absolute Monocytes 1.3 Absolute Eosinophils 0.1 Absolute Basophils 0.2 Carbonic Acid 1.26 HCO3/H2CO3 Ratio 21:1 ABG pH 7.44 ABG pCO2 41.7 ABG pO2 66.4 L ABG HCO3 27.6 H ABG O2 Saturation 93.8 L ABG Base Excess 3.1 FiO2 30% Sodium 143.9 Potassium 3.7 Chloride 109 H Carbon Dioxide 26 Anion Gap 9 BUN 6 L Creatinine 0.59 Est GFR ( Amer) > 60 Est GFR (Non-Af Amer) > 60 Glucose 88 Calcium 8.7 Magnesium 2.1 06/23/17 05:33 Tracheal Aspirate Gram Stain - Final 06/23/17 06/23/17 06/23/17 06:59 06:59 13:05 Creatine Kinase 93 68 CK-MB (CK-2) 1.52 Troponin I < 0.012 06/23/17 13:05 Creatine Kinase CK-MB (CK-2) 1.14 Troponin I < 0.012 Impressions: Head CT 06/23/17 00:48 IMPRESSION: No acute intracranial findings. Lines and tubes. EVIDENCE OF ACUTE STROKE: NO. Chest X-Ray 06/25/17 06:00 IMPRESSION: No significant interval change. Assessment & Plan - Diagnosis (1) Respiratory failure Qualifiers: Chronicity: acute Respiratory failure complication: hypoxia and hypercapnia Qualified Code(s): J96.01 - Acute respiratory failure with hypoxia ; J96.02 - Acute respiratory failure with hypercapnia; J96.02 - Acute respiratory failure with hypercapnia; J96.02 - Acute respiratory failure with hypercapnia Is this a current diagnosis for this admission?: Yes Plan: Patient had seizures and possibly aspirated. Patient is currently on the ventilator. He is oxygenating well. Ventilator is managed by the steelscope operator (2) Atypical pneumonia Is this a current diagnosis for this admission?: Yes Plan: Continue with the Levaquin. (3) Alcohol intoxication Qualifiers: Complication of substance-induced condition: uncomplicated Qualified Code(s ): F10.920 - Alcohol use, unspecified with intoxication, uncomplicated Is this a current diagnosis for this admission?: Yes Plan: He has a history of alcohol abuse and did have a seizure. Is not clear whether this was an alcohol withdrawal seizure versus his underlying seizure disorder. (4) Seizures Is this a current diagnosis for this admission?: Yes Plan: We will continue with Kerushra MARLIN. - Time Time Spent with patient: 25-34 minutes - Inpatient Certification Medical Necessity: Need Close Monitoring Due to Risk of Patient Decompensation
--- NOTE | 2017-06-25 11:43 | PDOC PROGRESS REPORT ---
Subjective Progress Note for:: 06/24/17 - Acute/chronic respiratory failure/PNA Subjective:: Intubated and sedated Physical Exam Vital Signs: Temp Pulse Resp BP Pulse Ox 97.9 F 75 19 122/74 100 06/24/17 06:00 06/24/17 07:57 06/24/17 06:00 06/24/17 05:59 06/24/17 06:00 Intake & Output 06/23/17 06/24/17 06/25/17 06:59 06:59 06:59 Intake Total 505 3193 Output Total 1100 2885 50 Balance -595 308 -50 Weight 72.6 kg 71.7 kg General appearance: PRESENT: no acute distress, disheveled, well-developed, well -nourished Head exam: PRESENT: atraumatic, normocephalic Eye exam: PRESENT: conjunctiva pale Mouth exam: PRESENT: dry mucosa, neck supple, tongue midline, other - ET tube in place Neck exam: ABSENT: carotid bruit, JVD, lymphadenopathy, thyromegaly Respiratory exam: PRESENT: decreased breath sounds, prolonged expiratory phas, rhonchi, symmetrical, unlabored, wheezes. ABSENT: accessory muscle use, chest wall tenderness, clear to auscultation samuel, crackles, rales, retraction, stridor , tachypnea Cardiovascular exam: PRESENT: RRR, +S1, +S2. ABSENT: irregular rhythm Pulses: PRESENT: normal radial pulses GI/Abdominal exam: PRESENT: normal bowel sounds, soft. ABSENT: distended, guarding, mass, organolmegaly, rebound, tenderness Gentrourinary exam: PRESENT: indwelling catheter Extremities exam: ABSENT: clubbing, joint swelling, pedal edema, +1 edema, +2 edema Musculoskeletal exam: ABSENT: ambulatory, deformity, dislocation Neurological exam: ABSENT: altered Skin exam: PRESENT: dry, warm Results Laboratory Results: 06/24/17 04:03 06/24/17 04:03 06/23/17 06/23/17 06/24/17 06:59 11:45 04:03 WBC 16.0 H RBC 4.66 Hgb 14.3 Hct 43.4 MCV 93 MCH 30.7 MCHC 33.0 RDW 13.8 Plt Count 211 Seg Neutrophils % 73.2 Lymphocytes % 16.9 Monocytes % 9.3 Eosinophils % 0.0 Basophils % 0.6 Absolute Neutrophils 11.7 H Absolute Lymphocytes 2.7 Absolute Monocytes 1.5 H Absolute Eosinophils 0.0 Absolute Basophils 0.1 Carbonic Acid 1.59 H HCO3/H2CO3 Ratio 16:1 ABG pH 7.33 L ABG pCO2 52.8 H ABG pO2 80.2 ABG HCO3 26.9 H ABG O2 Saturation 94.9 ABG Base Excess -0.2 FiO2 45% Sodium Potassium Chloride Carbon Dioxide Anion Gap BUN Creatinine Est GFR ( Amer) Est GFR (Non-Af Amer) Glucose Calcium Total Bilirubin AST ALT Alkaline Phosphatase Total Protein Albumin Triglycerides 173 H 06/24/17 06/24/17 04:03 05:20 WBC RBC Hgb Hct MCV MCH MCHC RDW Plt Count Seg Neutrophils % Lymphocytes % Monocytes % Eosinophils % Basophils % Absolute Neutrophils Absolute Lymphocytes Absolute Monocytes Absolute Eosinophils Absolute Basophils Carbonic Acid 1.29 HCO3/H2CO3 Ratio 19:1 ABG pH 7.39 ABG pCO2 42.9 ABG pO2 109.7 H ABG HCO3 25.6 ABG O2 Saturation 98.0 ABG Base Excess 0.4 FiO2 45% Sodium 142.7 Potassium 3.9 Chloride 108 H Carbon Dioxide 26 Anion Gap 9 BUN 8 Creatinine 0.65 Est GFR ( Amer) > 60 Est GFR (Non-Af Amer) > 60 Glucose 104 Calcium 9.0 Total Bilirubin 0.3 AST 13 L ALT 25 Alkaline Phosphatase 93 Total Protein 6.2 L Albumin 3.5 Triglycerides 06/23/17 06/23/17 06/23/17 06:59 06:59 13:05 Creatine Kinase 93 68 CK-MB (CK-2) 1.52 Troponin I < 0.012 06/23/17 13:05 Creatine Kinase CK-MB (CK-2) 1.14 Troponin I < 0.012 Impressions: Head CT 06/23/17 00:48 IMPRESSION: No acute intracranial findings. Lines and tubes. EVIDENCE OF ACUTE STROKE: NO. Chest X-Ray 06/24/17 06:00 IMPRESSION: No significant interval change. Assessment & Plan - Diagnosis (1) Aspiration pneumonia due to inhalation of vomitus Is this a current diagnosis for this admission?: Yes Plan: Labs- All tests 24 hr 06/23/17 06/24/17 00:53 04:03 WBC 13.1 H 16.0 H Strep pneumonia On Gram stain,cultures pending (2) COPD exacerbation Is this a current diagnosis for this admission?: Yes Plan: Bronchodilator therapy and ventilatory support (3) Respiratory failure Qualifiers: Chronicity: acute Respiratory failure complication: hypoxia and hypercapnia Qualified Code(s): J96.01 - Acute respiratory failure with hypoxia ; J96.02 - Acute respiratory failure with hypercapnia; J96.02 - Acute respiratory failure with hypercapnia; J96.02 - Acute respiratory failure with hypercapnia Is this a current diagnosis for this admission?: Yes Plan: Copious secretions rapidly desaturates during sedation vacation (4) Seizures Is this a current diagnosis for this admission?: Yes Plan: 2 at time of admission noncompliant with seizure medication currently on a benzodiazepine. - Time Time Spent with patient: 45 minutes ICU time
--- NOTE | 2017-06-25 11:51 | PDOC PROGRESS REPORT ---
Subjective Progress Note for:: 06/25/17 - Acute/chronic respiratory failure/PNA Subjective:: Intubated and sedated Physical Exam Vital Signs: Temp Pulse Resp BP Pulse Ox 97.5 F 66 20 101/63 94 06/25/17 08:00 06/25/17 08:00 06/25/17 08:00 06/25/17 08:00 06/25/17 08:00 Intake & Output 06/24/17 06/25/17 06/26/17 06:59 06:59 06:59 Intake Total 3193 3524 Output Total 2885 3025 100 Balance 308 499 -100 Weight 71.7 kg 72.4 kg General appearance: PRESENT: disheveled, well-developed, well-nourished. ABSENT : no acute distress, cooperative Head exam: PRESENT: atraumatic, normocephalic Eye exam: PRESENT: conjunctiva pale Mouth exam: PRESENT: dry mucosa, neck supple, tongue midline, other - ET tube in place Results Laboratory Results: 06/25/17 03:51 06/25/17 03:51 06/25/17 06/25/17 06/25/17 03:51 03:51 05:00 WBC 13.9 H RBC 4.61 Hgb 14.2 Hct 42.9 MCV 93 MCH 30.8 MCHC 33.1 RDW 14.2 H Plt Count 192 Seg Neutrophils % 66.4 Lymphocytes % 22.4 Monocytes % 9.7 Eosinophils % 0.4 Basophils % 1.1 Absolute Neutrophils 9.2 H Absolute Lymphocytes 3.1 Absolute Monocytes 1.3 Absolute Eosinophils 0.1 Absolute Basophils 0.2 Carbonic Acid 1.26 HCO3/H2CO3 Ratio 21:1 ABG pH 7.44 ABG pCO2 41.7 ABG pO2 66.4 L ABG HCO3 27.6 H ABG O2 Saturation 93.8 L ABG Base Excess 3.1 FiO2 30% Sodium 143.9 Potassium 3.7 Chloride 109 H Carbon Dioxide 26 Anion Gap 9 BUN 6 L Creatinine 0.59 Est GFR ( Amer) > 60 Est GFR (Non-Af Amer) > 60 Glucose 88 Calcium 8.7 Magnesium 2.1 06/23/17 06/23/17 06/23/17 06:59 06:59 13:05 Creatine Kinase 93 68 CK-MB (CK-2) 1.52 Troponin I < 0.012 06/23/17 13:05 Creatine Kinase CK-MB (CK-2) 1.14 Troponin I < 0.012 Impressions: Head CT 06/23/17 00:48 IMPRESSION: No acute intracranial findings. Lines and tubes. EVIDENCE OF ACUTE STROKE: NO. Chest X-Ray 06/25/17 06:00 IMPRESSION: No significant interval change. Assessment & Plan - Diagnosis (1) Aspiration pneumonia due to inhalation of vomitus Is this a current diagnosis for this admission?: Yes Plan: Labs- All tests 24 hr 06/25/17 03:51 WBC 13.9 H Seg Neutrophils % 66.4 Lymphocytes % 22.4 Monocytes % 9.7 Eosinophils % 0.4 Basophils % 1.1 06/23/17 05:33 Gram Stain - Preliminary Tracheal Aspirate Sputum Culture - Pending (2) COPD exacerbation Is this a current diagnosis for this admission?: Yes Plan: Bronchodilator therapy and ventilatory support (3) Respiratory failure Qualifiers: Chronicity: acute Respiratory failure complication: hypoxia and hypercapnia Qualified Code(s): J96.01 - Acute respiratory failure with hypoxia ; J96.02 - Acute respiratory failure with hypercapnia; J96.02 - Acute respiratory failure with hypercapnia; J96.02 - Acute respiratory failure with hypercapnia Is this a current diagnosis for this admission?: Yes Plan: Copious secretions rapidly desaturates during sedation vacation (4) Seizures Is this a current diagnosis for this admission?: Yes Plan: No additional seizure activity reported;currently on a benzodiazepine. - Time Time Spent with patient: 40 minutes ICU time
[2017-06-26] MEDS: IPRATROPIUM/ALBUTEROL 0.5-2.5 MG/3 ML AMPUL NEB SCH ×4 (02:22→19:41)
[2017-06-26] MEDS: MIDAZOLAM HCL 100 ML IV PRN ×3 (02:28→16:41)
[2017-06-26] MEDS: PROPOFOL 100 ML IV PRN ×4 (02:54→22:58)
[2017-06-26 04:26] LABS: ABSOLUTE BASOPHILS # (AUTO) 0.1 10^3/uL (0.0-0.2); ABSOLUTE EOSINOPHILS # (AUTO) 0.2 10^3/uL (0.0-0.6); ABSOLUTE LYMPHOCYTES (AUTO) 2.7 10^3/uL (0.5-4.7); ABSOLUTE MONOCYTES (AUTO) 0.9 10^3/uL (0.1-1.4); ABSOLUTE NEUT (AUTO) 6.9 10^3/uL (1.7-8.2); BASOPHILS % (AUTO) 0.8 % (0-2); EOSINOPHILS % (AUTO) 1.8 % (0-6); HEMATOCRIT 42.6 % (37.9-51.0); HEMOGLOBIN 14.3 g/dL (13.5-17.0); HGB HCT DIFFERENCE 0.3; LYMPHOCYTES % (AUTO) 25.3 % (13-45); MEAN CORPUSCULAR HEMOGLOBIN 31.2 pg (27.0-33.4); MEAN CORPUSCULAR HGB CONC 33.6 g/dL (32.0-36.0); MEAN CORPUSCULAR VOLUME 93 fl (80-97); MONOCYTES % (AUTO) 8.7 % (3-13); RED BLOOD COUNT 4.59 10^6/uL (4.35-5.55); RED CELL DISTRIBUTION WIDTH 14.1 % (11.5-14.0); SEGMENTED NEUTROPHILS % (AUTO) 63.4 % (42-78); WHITE BLOOD COUNT 10.9 10^3/uL (4.0-10.5)
[2017-06-26 04:45] LABS: ANION GAP 11 (5-19); BLOOD UREA NITROGEN 5 mg/dL (7-20); CALCIUM 8.9 mg/dL (8.4-10.2); CARBON DIOXIDE 24 mmol/L (22-30); CHLORIDE 108 mmol/L (98-107); CREATININE RESULT 0.56 mg/dL (0.52-1.25); GLUCOSE 94 mg/dL (75-110); MAGNESIUM 1.8 mg/dL (1.6-2.3); POTASSIUM 3.7 mmol/L (3.6-5.0); SODIUM 142.7 mmol/L (137-145); TRIGLYCERIDES 165 mg/dL (<150)
[2017-06-26 05:25] LABS: ARTERIAL BLOOD BASE EXCESS 0.5 mmol/L; ARTERIAL BLOOD O2 SATURATION 94.9 % (94-98)
[2017-06-26] MEDS: HEPARIN SOD (PORCINE) 5,000 UNIT/ML 1 ML SYRINGE SUBCUT SCH ×3 (05:30→21:50)
[2017-06-26] MEDS: LANSOPRAZOLE 30 MG TAB.RAP.DR NG SCH ×2 (05:30→16:41)
--- NOTE | 2017-06-26 08:16 | RADIOLOGY REPORT (SQ) ---
EXAM DESCRIPTION: CHEST SINGLE VIEW COMPLETED DATE/TIME: 06/26/2017 6:43 am REASON FOR STUDY: pna COMPARISON: 06/25/2017. FINDINGS: Single-view chest AP portable upright approximately 0635 hours. Endotracheal and nasogastric tubes remain in place. Hyperinflated but relatively clear lungs, stable appearance. IMPRESSION: Stable chest. TECHNICAL DOCUMENTATION: JOB ID: [id number]
[2017-06-26] MEDS: LEVETIRACETAM 500 MG/NACL-ISO 500 MG/100 ML RTUPB IV SCH ×2 (09:25→21:50)
[2017-06-26] MEDS: THIAMINE HCL 100 MG, FOLIC ACID 1 MG in NORMAL SALINE 250 ML IV SCH (09:25)
[2017-06-26] MEDS: LEVOFLOXACIN 750 MG/D5W RTU 750 MG/150 ML RTUPB IV SCH (09:26)
--- NOTE | 2017-06-26 09:45 | PDOC PROGRESS REPORT ---
Subjective Progress Note for:: 06/26/17 Subjective:: Patient intubated and sedated. Physical Exam Vital Signs: Temp Pulse Resp BP Pulse Ox 98.1 F 65 20 126/79 H 100 06/26/17 08:00 06/26/17 08:56 06/26/17 08:56 06/26/17 08:00 06/26/17 09:30 Intake & Output 06/25/17 06/26/17 06/27/17 06:59 06:59 06:59 Intake Total 3524 3298 Output Total 3025 4050 100 Balance 499 -752 -100 Weight 72.4 kg 73.4 kg General appearance: PRESENT: no acute distress Eye exam: PRESENT: conjunctiva pink. ABSENT: scleral icterus Mouth exam: PRESENT: moist, tongue midline Neck exam: ABSENT: JVD Respiratory exam: PRESENT: clear to auscultation samuel. ABSENT: rales, rhonchi, wheezes Cardiovascular exam: PRESENT: RRR. ABSENT: diastolic murmur, rubs, systolic murmur GI/Abdominal exam: PRESENT: normal bowel sounds, soft. ABSENT: distended, guarding, mass, organolmegaly, rebound, tenderness Extremities exam: ABSENT: calf tenderness, clubbing, pedal edema Neurological exam: PRESENT: other - Intubated and sedated Psychiatric exam: PRESENT: other - Unable to assess Skin exam: PRESENT: dry, intact, warm. ABSENT: cyanosis, rash Results Laboratory Results: 06/26/17 04:07 06/26/17 04:07 06/26/17 06/26/17 06/26/17 04:07 04:07 05:05 WBC 10.9 H RBC 4.59 Hgb 14.3 Hct 42.6 MCV 93 MCH 31.2 MCHC 33.6 RDW 14.1 H Plt Count 207 Seg Neutrophils % 63.4 Lymphocytes % 25.3 Monocytes % 8.7 Eosinophils % 1.8 Basophils % 0.8 Absolute Neutrophils 6.9 Absolute Lymphocytes 2.7 Absolute Monocytes 0.9 Absolute Eosinophils 0.2 Absolute Basophils 0.1 Carbonic Acid 1.12 HCO3/H2CO3 Ratio 21:1 ABG pH 7.44 ABG pCO2 37.3 ABG pO2 71.2 L ABG HCO3 24.5 ABG O2 Saturation 94.9 ABG Base Excess 0.5 FiO2 30% Sodium 142.7 Potassium 3.7 Chloride 108 H Carbon Dioxide 24 Anion Gap 11 BUN 5 L Creatinine 0.56 Est GFR ( Amer) > 60 Est GFR (Non-Af Amer) > 60 Glucose 94 Calcium 8.9 Magnesium 1.8 Triglycerides 165 H 06/23/17 05:33 Tracheal Aspirate Gram Stain - Final 06/23/17 05:33 Tracheal Aspirate Sputum Culture - Final Streptococcus Pneumoniae C.albicans/C.dubliniensis Reduced Normal Lisbeth 06/23/17 06/23/17 06/23/17 06:59 06:59 13:05 Creatine Kinase 93 68 CK-MB (CK-2) 1.52 Troponin I < 0.012 NT-Pro-B Natriuret Pep 06/23/17 06/26/17 13:05 04:07 Creatine Kinase CK-MB (CK-2) 1.14 Troponin I < 0.012 NT-Pro-B Natriuret Pep 113 Impressions: Head CT 06/23/17 00:48 IMPRESSION: No acute intracranial findings. Lines and tubes. EVIDENCE OF ACUTE STROKE: NO. Chest X-Ray 06/26/17 06:00 IMPRESSION: Stable chest. Assessment & Plan - Diagnosis (1) Respiratory failure Qualifiers: Chronicity: acute Respiratory failure complication: hypoxia and hypercapnia Qualified Code(s): J96.01 - Acute respiratory failure with hypoxia ; J96.02 - Acute respiratory failure with hypercapnia; J96.02 - Acute respiratory failure with hypercapnia; J96.02 - Acute respiratory failure with hypercapnia Is this a current diagnosis for this admission?: Yes Plan: Patient had seizures and possibly aspirated. Patient is currently on the ventilator. He is oxygenating well. Ventilator is managed by the horticulture worker (2) Atypical pneumonia Is this a current diagnosis for this admission?: Yes Plan: Continue with the Levaquin. He is growing strep pneumoniae from his sputum culture (3) Alcohol intoxication Qualifiers: Complication of substance-induced condition: uncomplicated Qualified Code(s ): F10.920 - Alcohol use, unspecified with intoxication, uncomplicated Is this a current diagnosis for this admission?: Yes Plan: He has a history of alcohol abuse and did have a seizure. Is not clear whether this was an alcohol withdrawal seizure versus his underlying seizure disorder. The patient currently is on benzodiazepines for withdrawal (4) Seizures Is this a current diagnosis for this admission?: Yes Plan: We will continue with Kerushra IV. - Time Time Spent with patient: 25-34 minutes - Inpatient Certification Medical Necessity: Need Close Monitoring Due to Risk of Patient Decompensation
--- NOTE | 2017-06-26 12:12 | PDOC PROGRESS REPORT ---
Subjective Progress Note for:: 06/26/17 - unable to protect airway Subjective:: Intubated and sedated Physical Exam Vital Signs: Temp Pulse Resp BP Pulse Ox 98.1 F 65 20 126/79 H 97 06/26/17 08:00 06/26/17 08:56 06/26/17 08:56 06/26/17 08:00 06/26/17 08:56 Intake & Output 06/25/17 06/26/17 06/27/17 06:59 06:59 06:59 Intake Total 3524 3298 Output Total 3025 4050 100 Balance 499 -752 -100 Weight 72.4 kg 73.4 kg General appearance: PRESENT: well-developed, well-nourished. ABSENT: no acute distress, cooperative, disheveled, mild distress, morbidly obese, obese, severe distress Head exam: PRESENT: atraumatic, normocephalic Eye exam: PRESENT: conjunctiva pale. ABSENT: conjunctival injection, conjunctiva pink, EOMI, nystagmus, scleral icterus Mouth exam: PRESENT: dry mucosa, laceration, neck supple, tongue midline, other - ET tube in place Neck exam: ABSENT: carotid bruit, JVD, lymphadenopathy, thyromegaly, tracheostomy Respiratory exam: PRESENT: decreased breath sounds, prolonged expiratory phas, rales, rhonchi, symmetrical, unlabored, wheezes. ABSENT: accessory muscle use, chest wall tenderness, clear to auscultation samuel, crackles, retraction, stridor , tachypnea Cardiovascular exam: PRESENT: RRR, +S1, +S2. ABSENT: clicks, gallop, irregular rhythm, rubs Pulses: PRESENT: normal radial pulses GI/Abdominal exam: PRESENT: normal bowel sounds, soft. ABSENT: distended, guarding, mass, organolmegaly, rebound, tenderness Gentrourinary exam: PRESENT: indwelling catheter Extremities exam: ABSENT: clubbing, joint swelling, pedal edema, +1 edema, +2 edema Musculoskeletal exam: ABSENT: ambulatory, deformity, dislocation Skin exam: PRESENT: dry, pallor, warm Results Laboratory Results: 06/26/17 04:07 06/26/17 04:07 06/26/17 06/26/17 06/26/17 04:07 04:07 05:05 WBC 10.9 H RBC 4.59 Hgb 14.3 Hct 42.6 MCV 93 MCH 31.2 MCHC 33.6 RDW 14.1 H Plt Count 207 Seg Neutrophils % 63.4 Lymphocytes % 25.3 Monocytes % 8.7 Eosinophils % 1.8 Basophils % 0.8 Absolute Neutrophils 6.9 Absolute Lymphocytes 2.7 Absolute Monocytes 0.9 Absolute Eosinophils 0.2 Absolute Basophils 0.1 Carbonic Acid 1.12 HCO3/H2CO3 Ratio 21:1 ABG pH 7.44 ABG pCO2 37.3 ABG pO2 71.2 L ABG HCO3 24.5 ABG O2 Saturation 94.9 ABG Base Excess 0.5 FiO2 30% Sodium 142.7 Potassium 3.7 Chloride 108 H Carbon Dioxide 24 Anion Gap 11 BUN 5 L Creatinine 0.56 Est GFR ( Amer) > 60 Est GFR (Non-Af Amer) > 60 Glucose 94 Calcium 8.9 Magnesium 1.8 Triglycerides 165 H 06/23/17 05:33 Tracheal Aspirate Gram Stain - Final 06/23/17 05:33 Tracheal Aspirate Sputum Culture - Final Streptococcus Pneumoniae C.albicans/C.dubliniensis Reduced Normal Lisbeth 06/23/17 06/23/17 06/23/17 06:59 06:59 13:05 Creatine Kinase 93 68 CK-MB (CK-2) 1.52 Troponin I < 0.012 NT-Pro-B Natriuret Pep 06/23/17 06/26/17 13:05 04:07 Creatine Kinase CK-MB (CK-2) 1.14 Troponin I < 0.012 NT-Pro-B Natriuret Pep 113 Impressions: Head CT 06/23/17 00:48 IMPRESSION: No acute intracranial findings. Lines and tubes. EVIDENCE OF ACUTE STROKE: NO. Chest X-Ray 06/26/17 06:00 IMPRESSION: Stable chest. Assessment & Plan - Diagnosis (1) Aspiration pneumonia due to inhalation of vomitus Is this a current diagnosis for this admission?: Yes Plan: Persistent copious amounts of secretions, WBC trending down afebrile Labs- All tests 24 hr 06/23/17 06/26/17 00:53 04:07 WBC 13.1 H 10.9 H (2) COPD exacerbation Is this a current diagnosis for this admission?: Yes Plan: Bronchodilator therapy and ventilatory support (3) Respiratory failure Qualifiers: Chronicity: acute Respiratory failure complication: hypoxia and hypercapnia Qualified Code(s): J96.01 - Acute respiratory failure with hypoxia ; J96.02 - Acute respiratory failure with hypercapnia; J96.02 - Acute respiratory failure with hypercapnia; J96.02 - Acute respiratory failure with hypercapnia Is this a current diagnosis for this admission?: Yes Plan: Labs- All tests 24 hr 06/26/17 05:05 ABG pH 7.44 ABG pCO2 37.3 ABG pO2 71.2 L FiO2 30% Improving oxygenation and ventilation, Desaturation and agitation with sedation vacation (4) Seizures Is this a current diagnosis for this admission?: Yes - Time Time Spent with patient: 45 minutes ICU time
[2017-06-26] MEDS: 1/2 NORMAL SALINE 1,000 ML IV PRN (16:42)
[2017-06-27] MEDS: PROPOFOL 100 ML IV PRN ×5 (01:12→21:22)
[2017-06-27] MEDS: IPRATROPIUM/ALBUTEROL 0.5-2.5 MG/3 ML AMPUL NEB SCH ×4 (01:19→19:35)
[2017-06-27] MEDS: MIDAZOLAM HCL 100 ML IV PRN ×4 (02:21→19:51)
[2017-06-27] MEDS: 1/2 NORMAL SALINE 1,000 ML IV PRN ×2 (02:21→12:59)
[2017-06-27 04:11] LABS: ABSOLUTE BASOPHILS # (AUTO) 0.1 10^3/uL (0.0-0.2); ABSOLUTE EOSINOPHILS # (AUTO) 0.3 10^3/uL (0.0-0.6); ABSOLUTE LYMPHOCYTES (AUTO) 2.2 10^3/uL (0.5-4.7); ABSOLUTE NEUT (AUTO) 5.3 10^3/uL (1.7-8.2); BASOPHILS % (AUTO) 0.9 % (0-2); EOSINOPHILS % (AUTO) 3.4 % (0-6); HEMATOCRIT 42.8 % (37.9-51.0); HEMOGLOBIN 14.6 g/dL (13.5-17.0); LYMPHOCYTES % (AUTO) 24.4 % (13-45); MEAN CORPUSCULAR HEMOGLOBIN 31.3 pg (27.0-33.4); MEAN CORPUSCULAR VOLUME 92 fl (80-97); MONOCYTES % (AUTO) 10.9 % (3-13); RED BLOOD COUNT 4.65 10^6/uL (4.35-5.55); RED CELL DISTRIBUTION WIDTH 13.9 % (11.5-14.0); SEGMENTED NEUTROPHILS % (AUTO) 60.4 % (42-78); WHITE BLOOD COUNT 8.8 10^3/uL (4.0-10.5)
[2017-06-27 04:49] LABS: ANION GAP 11 (5-19); BLOOD UREA NITROGEN 6 mg/dL (7-20); CALCIUM 8.6 mg/dL (8.4-10.2); CARBON DIOXIDE 25 mmol/L (22-30); CHLORIDE 107 mmol/L (98-107); CREATININE RESULT 0.53 mg/dL (0.52-1.25); GLUCOSE 94 mg/dL (75-110); MAGNESIUM 1.9 mg/dL (1.6-2.3); PHOSPHORUS 4.7 mg/dL (2.5-4.5); POTASSIUM 3.6 mmol/L (3.6-5.0); SODIUM 142.5 mmol/L (137-145)
[2017-06-27 05:38] LABS: ARTERIAL BLOOD BASE EXCESS 1.7 mmol/L; ARTERIAL BLOOD O2 SATURATION 93.3 % (94-98)
[2017-06-27] MEDS: LANSOPRAZOLE 30 MG TAB.RAP.DR NG SCH ×2 (05:49→17:19)
[2017-06-27] MEDS: HEPARIN SOD (PORCINE) 5,000 UNIT/ML 1 ML SYRINGE SUBCUT SCH ×3 (05:50→21:23)
--- NOTE | 2017-06-27 10:00 | PDOC PROGRESS REPORT ---
Subjective Progress Note for:: 06/27/17 Subjective:: Patient intubated and sedated. Physical Exam Vital Signs: Temp Pulse Resp BP Pulse Ox 97.7 F 83 21 H 100/63 96 06/27/17 06:01 06/27/17 08:55 06/27/17 08:55 06/27/17 06:00 06/27/17 08:55 Intake & Output 06/26/17 06/27/17 06/28/17 06:59 06:59 06:59 Intake Total 3298 3435 Output Total 4050 4155 Balance -752 -720 Weight 73.4 kg 72.1 kg General appearance: PRESENT: no acute distress Eye exam: PRESENT: conjunctiva pink. ABSENT: scleral icterus Mouth exam: PRESENT: moist, tongue midline Neck exam: ABSENT: JVD Respiratory exam: PRESENT: clear to auscultation samuel. ABSENT: rales, rhonchi, wheezes Cardiovascular exam: PRESENT: RRR. ABSENT: diastolic murmur, rubs, systolic murmur GI/Abdominal exam: PRESENT: normal bowel sounds, soft. ABSENT: distended, guarding, mass, organolmegaly, rebound, tenderness Extremities exam: ABSENT: calf tenderness, clubbing, pedal edema Neurological exam: PRESENT: other - Intubated and sedated Psychiatric exam: PRESENT: appropriate affect Skin exam: PRESENT: dry, intact, warm. ABSENT: cyanosis, rash Results Laboratory Results: 06/27/17 03:40 06/27/17 03:40 06/27/17 06/27/17 06/27/17 03:40 03:40 05:19 WBC 8.8 RBC 4.65 Hgb 14.6 Hct 42.8 MCV 92 MCH 31.3 MCHC 34.0 RDW 13.9 Plt Count 189 Seg Neutrophils % 60.4 Lymphocytes % 24.4 Monocytes % 10.9 Eosinophils % 3.4 Basophils % 0.9 Absolute Neutrophils 5.3 Absolute Lymphocytes 2.2 Absolute Monocytes 1.0 Absolute Eosinophils 0.3 Absolute Basophils 0.1 Carbonic Acid 1.18 HCO3/H2CO3 Ratio 21:1 ABG pH 7.44 ABG pCO2 39.2 ABG pO2 64.6 L ABG HCO3 25.8 ABG O2 Saturation 93.3 L ABG Base Excess 1.7 FiO2 30% Sodium 142.5 Potassium 3.6 Chloride 107 Carbon Dioxide 25 Anion Gap 11 BUN 6 L Creatinine 0.53 Est GFR ( Amer) > 60 Est GFR (Non-Af Amer) > 60 Glucose 94 Calcium 8.6 Phosphorus 4.7 H Magnesium 1.9 06/23/17 05:33 Tracheal Aspirate Gram Stain - Final 06/23/17 05:33 Tracheal Aspirate Sputum Culture - Final Streptococcus Pneumoniae C.albicans/C.dubliniensis Reduced Normal Lisbeth 06/23/17 06/23/17 06/23/17 06:59 06:59 13:05 Creatine Kinase 93 68 CK-MB (CK-2) 1.52 Troponin I < 0.012 NT-Pro-B Natriuret Pep 06/23/17 06/26/17 13:05 04:07 Creatine Kinase CK-MB (CK-2) 1.14 Troponin I < 0.012 NT-Pro-B Natriuret Pep 113 Impressions: Head CT 06/23/17 00:48 IMPRESSION: No acute intracranial findings. Lines and tubes. EVIDENCE OF ACUTE STROKE: NO. Chest X-Ray 06/26/17 06:00 IMPRESSION: Stable chest. Assessment & Plan - Diagnosis (1) Respiratory failure Qualifiers: Chronicity: acute Respiratory failure complication: hypoxia and hypercapnia Qualified Code(s): J96.01 - Acute respiratory failure with hypoxia ; J96.02 - Acute respiratory failure with hypercapnia; J96.02 - Acute respiratory failure with hypercapnia; J96.02 - Acute respiratory failure with hypercapnia Is this a current diagnosis for this admission?: Yes Plan: Patient had seizures and possibly aspirated. Patient is currently on the ventilator. He is oxygenating well. Ventilator is managed by the catering driver (2) Atypical pneumonia Is this a current diagnosis for this admission?: Yes Plan: Continue with the Levaquin. He is growing strep pneumoniae from his sputum culture (3) Alcohol intoxication Qualifiers: Complication of substance-induced condition: uncomplicated Qualified Code(s ): F10.920 - Alcohol use, unspecified with intoxication, uncomplicated Is this a current diagnosis for this admission?: Yes Plan: He has a history of alcohol abuse and did have a seizure. Is not clear whether this was an alcohol withdrawal seizure versus his underlying seizure disorder. The patient currently is on benzodiazepines for withdrawal (4) Seizures Is this a current diagnosis for this admission?: Yes Plan: We will continue with Keppra IV. - Time Time Spent with patient: 25-34 minutes - Inpatient Certification Medical Necessity: Need Close Monitoring Due to Risk of Patient Decompensation, Need for IV Antibiotics
[2017-06-27] MEDS: LEVETIRACETAM 500 MG/NACL-ISO 500 MG/100 ML RTUPB IV SCH ×2 (10:19→21:22)
[2017-06-27] MEDS: LEVOFLOXACIN 750 MG/D5W RTU 750 MG/150 ML RTUPB IV SCH (10:19)
[2017-06-27] MEDS: THIAMINE HCL 100 MG, FOLIC ACID 1 MG in NORMAL SALINE 250 ML IV SCH (10:20)
--- NOTE | 2017-06-27 15:19 | PDOC PROGRESS REPORT ---
Subjective Progress Note for:: 06/27/17 - unable to protect airway Subjective:: Intubated and sedated Physical Exam Vital Signs: Temp Pulse Resp BP Pulse Ox 98.8 F 83 20 106/64 94 06/27/17 11:01 06/27/17 08:55 06/27/17 11:01 06/27/17 11:00 06/27/17 11:01 Intake & Output 06/26/17 06/27/17 06/28/17 06:59 06:59 06:59 Intake Total 3298 3435 Output Total 4050 4155 500 Balance -752 -720 -500 Weight 73.4 kg 72.1 kg General appearance: PRESENT: no acute distress, disheveled, well-developed. ABSENT: cooperative, mild distress, morbidly obese, severe distress Head exam: PRESENT: atraumatic, normocephalic Eye exam: PRESENT: conjunctiva pale. ABSENT: conjunctival injection, conjunctiva pink, nystagmus, periorbital swelling, scleral icterus Mouth exam: PRESENT: dry mucosa, neck supple, tongue midline, other - ET tube. ABSENT: laceration, moist Neck exam: ABSENT: carotid bruit, JVD, lymphadenopathy, meningismus, thyromegaly , tracheal deviation, tracheostomy Respiratory exam: PRESENT: decreased breath sounds, prolonged expiratory phas, rales, rhonchi, symmetrical, unlabored. ABSENT: accessory muscle use, chest wall tenderness, clear to auscultation samuel, crackles, retraction, stridor, tachypnea Cardiovascular exam: PRESENT: RRR, +S1, +S2. ABSENT: clicks, gallop, irregular rhythm, rubs Pulses: PRESENT: normal radial pulses GI/Abdominal exam: PRESENT: normal bowel sounds, soft. ABSENT: distended, guarding, mass, organolmegaly, rebound, tenderness Gentrourinary exam: PRESENT: indwelling catheter Extremities exam: ABSENT: clubbing, joint swelling, pedal edema, +2 edema Musculoskeletal exam: ABSENT: ambulatory Skin exam: PRESENT: dry, warm Results Laboratory Results: 06/27/17 03:40 06/27/17 03:40 06/27/17 06/27/17 06/27/17 03:40 03:40 05:19 WBC 8.8 RBC 4.65 Hgb 14.6 Hct 42.8 MCV 92 MCH 31.3 MCHC 34.0 RDW 13.9 Plt Count 189 Seg Neutrophils % 60.4 Lymphocytes % 24.4 Monocytes % 10.9 Eosinophils % 3.4 Basophils % 0.9 Absolute Neutrophils 5.3 Absolute Lymphocytes 2.2 Absolute Monocytes 1.0 Absolute Eosinophils 0.3 Absolute Basophils 0.1 Carbonic Acid 1.18 HCO3/H2CO3 Ratio 21:1 ABG pH 7.44 ABG pCO2 39.2 ABG pO2 64.6 L ABG HCO3 25.8 ABG O2 Saturation 93.3 L ABG Base Excess 1.7 FiO2 30% Sodium 142.5 Potassium 3.6 Chloride 107 Carbon Dioxide 25 Anion Gap 11 BUN 6 L Creatinine 0.53 Est GFR ( Amer) > 60 Est GFR (Non-Af Amer) > 60 Glucose 94 Calcium 8.6 Phosphorus 4.7 H Magnesium 1.9 06/23/17 05:33 Tracheal Aspirate Gram Stain - Final 06/23/17 05:33 Tracheal Aspirate Sputum Culture - Final Streptococcus Pneumoniae C.albicans/C.dubliniensis Reduced Normal Lisbeth 06/23/17 06/23/17 06/23/17 06:59 06:59 13:05 Creatine Kinase 93 68 CK-MB (CK-2) 1.52 Troponin I < 0.012 NT-Pro-B Natriuret Pep 06/23/17 06/26/17 13:05 04:07 Creatine Kinase CK-MB (CK-2) 1.14 Troponin I < 0.012 NT-Pro-B Natriuret Pep 113 Impressions: Head CT 06/23/17 00:48 IMPRESSION: No acute intracranial findings. Lines and tubes. EVIDENCE OF ACUTE STROKE: NO. Chest X-Ray 06/26/17 06:00 IMPRESSION: Stable chest. Assessment & Plan - Diagnosis (1) Aspiration pneumonia due to inhalation of vomitus Is this a current diagnosis for this admission?: Yes Plan: Persistent copious amounts of secretions, WBC trending down afebrile Labs- All tests 24 hr 06/23/17 06/26/17 00:53 04:07 WBC 13.1 H 10.9 H (2) COPD exacerbation Is this a current diagnosis for this admission?: Yes Plan: improving ;increased breath sounds over last 24 h (3) Respiratory failure Qualifiers: Chronicity: acute Respiratory failure complication: hypoxia and hypercapnia Qualified Code(s): J96.01 - Acute respiratory failure with hypoxia ; J96.02 - Acute respiratory failure with hypercapnia; J96.02 - Acute respiratory failure with hypercapnia; J96.02 - Acute respiratory failure with hypercapnia Is this a current diagnosis for this admission?: Yes Plan: requiring higher FIO2;failed attempt at sedation vacation (4) Seizures Is this a current diagnosis for this admission?: Yes Plan: none reported or withessed
[2017-06-27] MEDS: ACETAMINOPHEN 325 MG TABLET NG PRN (22:52)
[2017-06-28] MEDS ORDERED: KETOROLAC TROMETHAMINE INJ/PF 30 MG/1 ML SDV IV ONE (01:45)
[2017-06-28] MEDS: IPRATROPIUM/ALBUTEROL 0.5-2.5 MG/3 ML AMPUL NEB SCH ×4 (02:01→20:40)
[2017-06-28] MEDS: MIDAZOLAM HCL 100 ML IV PRN ×4 (02:35→21:52)
[2017-06-28 04:20] LABS: ABSOLUTE BASOPHILS # (AUTO) 0.1 10^3/uL (0.0-0.2); ABSOLUTE EOSINOPHILS # (AUTO) 0.2 10^3/uL (0.0-0.6); ABSOLUTE LYMPHOCYTES (AUTO) 1.6 10^3/uL (0.5-4.7); ABSOLUTE MONOCYTES (AUTO) 1.4 10^3/uL (0.1-1.4); BASOPHILS % (AUTO) 0.6 % (0-2); HEMATOCRIT 43.9 % (37.9-51.0); HEMOGLOBIN 14.7 g/dL (13.5-17.0); HGB HCT DIFFERENCE 0.2; LYMPHOCYTES % (AUTO) 9.5 % (13-45); MEAN CORPUSCULAR HEMOGLOBIN 30.7 pg (27.0-33.4); MEAN CORPUSCULAR HGB CONC 33.5 g/dL (32.0-36.0); MEAN CORPUSCULAR VOLUME 92 fl (80-97); MONOCYTES % (AUTO) 8.2 % (3-13); RED BLOOD COUNT 4.79 10^6/uL (4.35-5.55); RED CELL DISTRIBUTION WIDTH 14.1 % (11.5-14.0); SEGMENTED NEUTROPHILS % (AUTO) 80.7 % (42-78); WHITE BLOOD COUNT 17.4 10^3/uL (4.0-10.5)
[2017-06-28 04:39] LABS: ANION GAP 10 (5-19); BLOOD UREA NITROGEN 7 mg/dL (7-20); CALCIUM 8.6 mg/dL (8.4-10.2); CARBON DIOXIDE 23 mmol/L (22-30); CHLORIDE 107 mmol/L (98-107); CREATININE RESULT 0.59 mg/dL (0.52-1.25); GLUCOSE 95 mg/dL (75-110); MAGNESIUM 1.6 mg/dL (1.6-2.3); POTASSIUM 3.6 mmol/L (3.6-5.0); SODIUM 140.1 mmol/L (137-145)
[2017-06-28] MEDS: HEPARIN SOD (PORCINE) 5,000 UNIT/ML 1 ML SYRINGE SUBCUT SCH ×3 (05:57→21:19)
[2017-06-28] MEDS: LANSOPRAZOLE 30 MG TAB.RAP.DR NG SCH ×2 (05:57→17:14)
[2017-06-28 06:01] LABS: ARTERIAL BLOOD BASE EXCESS 0.4 mmol/L; ARTERIAL BLOOD O2 SATURATION 94.7 % (94-98)
[2017-06-28] MEDS: PROPOFOL 100 ML IV PRN ×3 (06:47→20:21)
[2017-06-28] MEDS ORDERED: VANCOMYCIN HCL 0 MG in DEXTROSE 5%-WATER 250 ML IV NR (08:15)
[2017-06-28] MEDS: 1/2 NORMAL SALINE 1,000 ML IV PRN (08:57)
[2017-06-28] MEDS ORDERED: VANCOMYCIN HCL 1,500 MG in DEXTROSE 5%-WATER 250 ML IV ONE (09:00)
[2017-06-28] MEDS: THIAMINE HCL 100 MG, FOLIC ACID 1 MG in NORMAL SALINE 250 ML IV SCH (09:06)
[2017-06-28] MEDS: LEVETIRACETAM 500 MG/NACL-ISO 500 MG/100 ML RTUPB IV SCH ×2 (09:06→21:20)
[2017-06-28] MEDS: LEVOFLOXACIN 750 MG/D5W RTU 750 MG/150 ML RTUPB IV SCH (09:07)
--- NOTE | 2017-06-28 09:59 | PDOC PROGRESS REPORT ---
Subjective Progress Note for:: 06/28/17 Subjective:: Patient intubated and sedated. He had fever up to 103 last night. Physical Exam Vital Signs: Temp Pulse Resp BP Pulse Ox 101.1 F H 82 19 97/65 L 100 06/28/17 08:00 06/28/17 08:52 06/28/17 08:52 06/28/17 08:00 06/28/17 08:52 Intake & Output 06/27/17 06/28/17 06/29/17 06:59 06:59 06:59 Intake Total 3435 4021 Output Total 4155 3325 325 Balance -720 696 -325 Weight 72.1 kg 73.4 kg General appearance: PRESENT: no acute distress Eye exam: PRESENT: conjunctiva pink. ABSENT: scleral icterus Mouth exam: PRESENT: dry mucosa Neck exam: ABSENT: JVD Respiratory exam: PRESENT: clear to auscultation samuel. ABSENT: rales, rhonchi, wheezes Cardiovascular exam: PRESENT: RRR. ABSENT: diastolic murmur, rubs, systolic murmur GI/Abdominal exam: PRESENT: normal bowel sounds, soft. ABSENT: distended, guarding, mass, organolmegaly, rebound, tenderness Extremities exam: ABSENT: calf tenderness, clubbing, pedal edema Neurological exam: PRESENT: other - Intubated and sedated Psychiatric exam: PRESENT: other - Unable to assess Skin exam: PRESENT: dry, intact, warm. ABSENT: cyanosis, rash Results Laboratory Results: 06/28/17 03:53 06/28/17 03:53 06/28/17 06/28/17 06/28/17 03:53 03:53 05:45 WBC 17.4 H RBC 4.79 Hgb 14.7 Hct 43.9 MCV 92 MCH 30.7 MCHC 33.5 RDW 14.1 H Plt Count 188 Seg Neutrophils % 80.7 H Lymphocytes % 9.5 L Monocytes % 8.2 Eosinophils % 1.0 Basophils % 0.6 Absolute Neutrophils 14.0 H Absolute Lymphocytes 1.6 Absolute Monocytes 1.4 Absolute Eosinophils 0.2 Absolute Basophils 0.1 Carbonic Acid 1.08 HCO3/H2CO3 Ratio 22:1 ABG pH 7.44 ABG pCO2 35.9 ABG pO2 69.7 L ABG HCO3 24.1 ABG O2 Saturation 94.7 ABG Base Excess 0.4 FiO2 40% Sodium 140.1 Potassium 3.6 Chloride 107 Carbon Dioxide 23 Anion Gap 10 BUN 7 Creatinine 0.59 Est GFR ( Amer) > 60 Est GFR (Non-Af Amer) > 60 Glucose 95 Calcium 8.6 Magnesium 1.6 06/23/17 03:40 Blood Blood Culture - Final NO GROWTH IN 5 DAYS 06/23/17 04:12 Blood Blood Culture - Final NO GROWTH IN 5 DAYS 06/23/17 06/23/17 06/23/17 06:59 06:59 13:05 Creatine Kinase 93 68 CK-MB (CK-2) 1.52 Troponin I < 0.012 NT-Pro-B Natriuret Pep 06/23/17 06/26/17 13:05 04:07 Creatine Kinase CK-MB (CK-2) 1.14 Troponin I < 0.012 NT-Pro-B Natriuret Pep 113 Impressions: Head CT 06/23/17 00:48 IMPRESSION: No acute intracranial findings. Lines and tubes. EVIDENCE OF ACUTE STROKE: NO. Chest X-Ray 06/26/17 06:00 IMPRESSION: Stable chest. Assessment & Plan - Diagnosis (1) Respiratory failure Qualifiers: Chronicity: acute Respiratory failure complication: hypoxia and hypercapnia Qualified Code(s): J96.01 - Acute respiratory failure with hypoxia ; J96.02 - Acute respiratory failure with hypercapnia; J96.02 - Acute respiratory failure with hypercapnia; J96.02 - Acute respiratory failure with hypercapnia Is this a current diagnosis for this admission?: Yes Plan: Patient had seizures and possibly aspirated. Patient is currently on the ventilator. He is oxygenating well. Ventilator is managed by the tribunal member (2) Atypical pneumonia Is this a current diagnosis for this admission?: Yes Plan: Continue with the Levaquin. He is growing strep pneumoniae from his sputum culture. Given his fever we will add on vancomycin. Blood cultures will also be obtained. (3) Alcohol intoxication Qualifiers: Complication of substance-induced condition: uncomplicated Qualified Code(s ): F10.920 - Alcohol use, unspecified with intoxication, uncomplicated Is this a current diagnosis for this admission?: Yes Plan: He has a history of alcohol abuse and did have a seizure. Is not clear whether this was an alcohol withdrawal seizure versus his underlying seizure disorder. The patient currently is on benzodiazepines for withdrawal (4) Seizures Is this a current diagnosis for this admission?: Yes Plan: We will continue with Keppra IV. - Time Time Spent with patient: 25-34 minutes - Inpatient Certification Medical Necessity: Need Close Monitoring Due to Risk of Patient Decompensation, Need for IV Antibiotics
[2017-06-28] MEDS ORDERED: BISACODYL 10 MG SUPP.RECT PR ONE (10:00)
--- NOTE | 2017-06-28 13:59 | PDOC PROGRESS REPORT ---
Subjective Progress Note for:: 06/28/17 - resp failure /pna Subjective:: Intubated and sedated Physical Exam Vital Signs: Temp Pulse Resp BP Pulse Ox 101.1 F H 82 19 97/65 L 100 06/28/17 08:00 06/28/17 08:52 06/28/17 08:52 06/28/17 08:00 06/28/17 08:52 Intake & Output 06/27/17 06/28/17 06/29/17 06:59 06:59 06:59 Intake Total 3435 4021 Output Total 4155 3325 325 Balance -720 696 -325 Weight 72.1 kg 73.4 kg Results Laboratory Results: 06/28/17 03:53 06/28/17 03:53 06/28/17 06/28/17 06/28/17 03:53 03:53 05:45 WBC 17.4 H RBC 4.79 Hgb 14.7 Hct 43.9 MCV 92 MCH 30.7 MCHC 33.5 RDW 14.1 H Plt Count 188 Seg Neutrophils % 80.7 H Lymphocytes % 9.5 L Monocytes % 8.2 Eosinophils % 1.0 Basophils % 0.6 Absolute Neutrophils 14.0 H Absolute Lymphocytes 1.6 Absolute Monocytes 1.4 Absolute Eosinophils 0.2 Absolute Basophils 0.1 Carbonic Acid 1.08 HCO3/H2CO3 Ratio 22:1 ABG pH 7.44 ABG pCO2 35.9 ABG pO2 69.7 L ABG HCO3 24.1 ABG O2 Saturation 94.7 ABG Base Excess 0.4 FiO2 40% Sodium 140.1 Potassium 3.6 Chloride 107 Carbon Dioxide 23 Anion Gap 10 BUN 7 Creatinine 0.59 Est GFR ( Amer) > 60 Est GFR (Non-Af Amer) > 60 Glucose 95 Calcium 8.6 Magnesium 1.6 06/23/17 03:40 Blood Blood Culture - Final NO GROWTH IN 5 DAYS 06/23/17 04:12 Blood Blood Culture - Final NO GROWTH IN 5 DAYS 06/23/17 06/23/17 06/23/17 06:59 06:59 13:05 Creatine Kinase 93 68 CK-MB (CK-2) 1.52 Troponin I < 0.012 NT-Pro-B Natriuret Pep 06/23/17 06/26/17 13:05 04:07 Creatine Kinase CK-MB (CK-2) 1.14 Troponin I < 0.012 NT-Pro-B Natriuret Pep 113 Impressions: Head CT 06/23/17 00:48 IMPRESSION: No acute intracranial findings. Lines and tubes. EVIDENCE OF ACUTE STROKE: NO. Chest X-Ray 06/26/17 06:00 IMPRESSION: Stable chest. Assessment & Plan - Diagnosis (1) Aspiration pneumonia due to inhalation of vomitus Is this a current diagnosis for this admission?: Yes Plan: Selected Entries 06/28/17 06/28/17 06/28/17 03:00 03:01 03:02 Temperature 102.2 F H 102.2 F H 102.2 F H 06/28/17 06/28/17 06/28/17 04:00 04:01 04:02 Temperature 101.7 F H 101.7 F H 101.7 F H 06/28/17 06/28/17 06/28/17 05:00 05:01 05:02 Temperature 101.8 F H 101.8 F H 101.8 F H 06/28/17 06/28/17 06/28/17 06:01 06:02 07:00 Temperature 101.1 F H 101.5 F H 101.5 F H 06/28/17 06/28/17 06/28/17 07:01 07:02 08:00 Temperature 101.5 F H 101.5 F H 101.1 F H 06/28/17 06/28/17 06/28/17 08:01 08:02 09:00 Temperature 101.1 F H 100.9 F H 101.1 F H 06/28/17 06/28/17 06/28/17 09:01 09:02 10:00 Temperature 101.1 F H 101.1 F H 100.8 F H 06/28/17 06/28/17 06/28/17 10:01 10:02 10:03 Temperature 100.6 F H 100.6 F H 100.8 F H 06/28/17 06/28/17 10:04 12:00 Temperature 100.6 F H 99.7 F Labs- All tests 24 hr 06/26/17 06/27/17 06/28/17 04:07 03:40 03:53 WBC 10.9 H 8.8 17.4 H Elevated temperature as well as elevated elevating WBC (2) COPD exacerbation Is this a current diagnosis for this admission?: Yes Plan: improving ;increased breath sounds over last 24 h (3) Respiratory failure Qualifiers: Chronicity: acute Respiratory failure complication: hypoxia and hypercapnia Qualified Code(s): J96.01 - Acute respiratory failure with hypoxia ; J96.02 - Acute respiratory failure with hypercapnia; J96.02 - Acute respiratory failure with hypercapnia; J96.02 - Acute respiratory failure with hypercapnia Is this a current diagnosis for this admission?: Yes Plan: Increasing FiO2 decreasing PaO2 (4) Seizures Is this a current diagnosis for this admission?: Yes Plan: none reported or withessed - Time Time Spent with patient: 40 minutes ICU time
[2017-06-28] MEDS: VANCOMYCIN HCL 1,500 MG in DEXTROSE 5%-WATER 250 ML IV SCH (17:14)
[2017-06-28] MEDS: ACETAMINOPHEN 325 MG TABLET NG PRN (20:27)
[2017-06-29] MEDS: IPRATROPIUM/ALBUTEROL 0.5-2.5 MG/3 ML AMPUL NEB SCH ×4 (01:26→20:44)
[2017-06-29] MEDS: VANCOMYCIN HCL 1,500 MG in DEXTROSE 5%-WATER 250 ML IV SCH ×2 (04:09→10:42)
[2017-06-29] MEDS: PROPOFOL 100 ML IV PRN ×4 (04:09→19:58)
[2017-06-29] MEDS: 1/2 NORMAL SALINE 1,000 ML IV PRN ×2 (04:10→15:59)
[2017-06-29 04:25] LABS: ABSOLUTE BASOPHILS # (AUTO) 0.1 10^3/uL (0.0-0.2); ABSOLUTE EOSINOPHILS # (AUTO) 0.2 10^3/uL (0.0-0.6); ABSOLUTE LYMPHOCYTES (AUTO) 2.4 10^3/uL (0.5-4.7); BASOPHILS % (AUTO) 0.8 % (0-2); EOSINOPHILS % (AUTO) 1.6 % (0-6); HEMATOCRIT 45.9 % (37.9-51.0); HEMOGLOBIN 15.4 g/dL (13.5-17.0); HGB HCT DIFFERENCE 0.3; LYMPHOCYTES % (AUTO) 16.1 % (13-45); MEAN CORPUSCULAR HEMOGLOBIN 30.8 pg (27.0-33.4); MEAN CORPUSCULAR HGB CONC 33.5 g/dL (32.0-36.0); MEAN CORPUSCULAR VOLUME 92 fl (80-97); MONOCYTES % (AUTO) 13.6 % (3-13); RED BLOOD COUNT 4.99 10^6/uL (4.35-5.55); RED CELL DISTRIBUTION WIDTH 13.7 % (11.5-14.0); SEGMENTED NEUTROPHILS % (AUTO) 67.9 % (42-78); WHITE BLOOD COUNT 14.6 10^3/uL (4.0-10.5)
[2017-06-29 04:38] LABS: ANION GAP 11 (5-19); BLOOD UREA NITROGEN 8 mg/dL (7-20); CALCIUM 8.8 mg/dL (8.4-10.2); CARBON DIOXIDE 28 mmol/L (22-30); CHLORIDE 104 mmol/L (98-107); CREATININE RESULT 0.67 mg/dL (0.52-1.25); GLUCOSE 133 mg/dL (75-110); MAGNESIUM 2.1 mg/dL (1.6-2.3); PHOSPHORUS 3.7 mg/dL (2.5-4.5); POTASSIUM 3.4 mmol/L (3.6-5.0); SODIUM 142.5 mmol/L (137-145); TRIGLYCERIDES 150 mg/dL (<150)
[2017-06-29] MEDS: MIDAZOLAM HCL 100 ML IV PRN ×3 (05:28→19:58)
[2017-06-29] MEDS: HEPARIN SOD (PORCINE) 5,000 UNIT/ML 1 ML SYRINGE SUBCUT SCH ×3 (06:03→21:48)
[2017-06-29] MEDS: LANSOPRAZOLE 30 MG TAB.RAP.DR NG SCH ×2 (06:05→17:25)
[2017-06-29 06:50] LABS: ARTERIAL BLOOD BASE EXCESS -0.6 mmol/L; ARTERIAL BLOOD O2 SATURATION 94.7 % (94-98)
--- NOTE | 2017-06-29 08:00 | RADIOLOGY REPORT (SQ) ---
EXAM DESCRIPTION: CHEST SINGLE VIEW COMPLETED DATE/TIME: 06/29/2017 7:03 am REASON FOR STUDY: resp failure/pna COMPARISON: Chest films 06/23/2017, 06/24/2017, 11/23/2016, 06/26/2017 EXAM PARAMETERS: NUMBER OF VIEWS: One view. TECHNIQUE: Single frontal radiographic view of the chest acquired. RADIATION DOSE: NA LIMITATIONS: None. FINDINGS: LUNGS AND PLEURA: No opacities, masses or pneumothorax. No pleural effusion. MEDIASTINUM AND HILAR STRUCTURES: No masses. Contour normal. HEART AND VASCULAR STRUCTURES: Heart normal in size. Normal vasculature. BONES: No acute findings. HARDWARE: Endotracheal tube tip midtrachea. Nasogastric tube tip and side port in the stomach. OTHER: No other significant finding. IMPRESSION: No focal infiltrates. Endotracheal tube, nasogastric tube in positioning TECHNICAL DOCUMENTATION: JOB ID: [id number] All Rights Reserved
--- NOTE | 2017-06-29 09:37 | PDOC PROGRESS REPORT ---
Subjective Progress Note for:: 06/29/17 Subjective:: Patient is sedated and intubated. Review of systems cannot be obtained. Overnight sedation was weaned and the patient had difficulty on the ventilator. He also had high residuals. Therefore his tube feeds have been held. Reason For Visit: SEIZURE,ALCOHOL INTOX,COPD EXACERBATION Physical Exam Vital Signs: Temp Pulse Resp BP Pulse Ox 99.9 F 65 20 111/69 98 06/29/17 07:57 06/29/17 08:39 06/29/17 08:39 06/29/17 07:57 06/29/17 08:39 Intake & Output 06/28/17 06/29/17 06/30/17 06:59 06:59 06:59 Intake Total 4021 5264 Output Total 3325 4532 15 Balance 696 732 -15 Weight 73.4 kg 75 kg Vent: Tidal volume 500. Respiratory rate 25. FiO2 30%. Drips: Propofol, Versed Antibiotics: Levaquin, vancomycin. Lines: Bilateral peripheral IVs GENERAL: This is a well-developed and nourished appearing white male resting in bed currently on the ventilator. HEENT: ET tube is currently in place with Dobbhoff. HEART: Regular rate and rhythm. No murmurs, rubs or gallops. LUNGS: Clear to auscultation anteriorly bilaterally with equal rise and fall of the chest. ABDOMEN: Soft, nontender, nondistended with normoactive bowel sounds. Tube feeds are currently off. EXTREMETIES: No clubbing, cyanosis or edema. 2+ peripheral pulses bilaterally. NEURO: Sedated on the ventilator Results Laboratory Results: 06/29/17 04:10 06/29/17 04:10 06/29/17 06/29/17 06/29/17 04:10 04:10 05:25 WBC 14.6 H RBC 4.99 Hgb 15.4 Hct 45.9 MCV 92 MCH 30.8 MCHC 33.5 RDW 13.7 Plt Count 166 Seg Neutrophils % 67.9 Lymphocytes % 16.1 Monocytes % 13.6 H Eosinophils % 1.6 Basophils % 0.8 Absolute Neutrophils 10.0 H Absolute Lymphocytes 2.4 Absolute Monocytes 2.0 H Absolute Eosinophils 0.2 Absolute Basophils 0.1 Carbonic Acid Cancelled HCO3/H2CO3 Ratio Cancelled ABG pH Cancelled ABG pCO2 Cancelled ABG pO2 Cancelled ABG HCO3 Cancelled ABG O2 Saturation Cancelled ABG Base Excess Cancelled FiO2 Cancelled Sodium 142.5 Potassium 3.4 L Chloride 104 Carbon Dioxide 28 Anion Gap 11 BUN 8 Creatinine 0.67 Est GFR ( Amer) > 60 Est GFR (Non-Af Amer) > 60 Glucose 133 H Calcium 8.8 Phosphorus 3.7 Magnesium 2.1 Triglycerides 150 06/29/17 06:20 WBC RBC Hgb Hct MCV MCH MCHC RDW Plt Count Seg Neutrophils % Lymphocytes % Monocytes % Eosinophils % Basophils % Absolute Neutrophils Absolute Lymphocytes Absolute Monocytes Absolute Eosinophils Absolute Basophils Carbonic Acid 1.07 HCO3/H2CO3 Ratio 21:1 ABG pH 7.43 ABG pCO2 35.6 ABG pO2 70.3 L ABG HCO3 23.1 ABG O2 Saturation 94.7 ABG Base Excess -0.6 FiO2 30% Sodium Potassium Chloride Carbon Dioxide Anion Gap BUN Creatinine Est GFR ( Amer) Est GFR (Non-Af Amer) Glucose Calcium Phosphorus Magnesium Triglycerides 06/23/17 03:40 Blood Blood Culture - Final NO GROWTH IN 5 DAYS 06/23/17 04:12 Blood Blood Culture - Final NO GROWTH IN 5 DAYS 06/23/17 06/23/17 06/23/17 06:59 06:59 13:05 Creatine Kinase 93 68 CK-MB (CK-2) 1.52 Troponin I < 0.012 NT-Pro-B Natriuret Pep 06/23/17 06/26/17 13:05 04:07 Creatine Kinase CK-MB (CK-2) 1.14 Troponin I < 0.012 NT-Pro-B Natriuret Pep 113 Impressions: Head CT 06/23/17 00:48 IMPRESSION: No acute intracranial findings. Lines and tubes. EVIDENCE OF ACUTE STROKE: NO. Chest X-Ray 06/29/17 06:00 IMPRESSION: No focal infiltrates. Endotracheal tube, nasogastric tube in positioning Assessment & Plan - Diagnosis (1) Acute respiratory failure with hypoxemia Is this a current diagnosis for this admission?: Yes Plan: Acute hypoxemic, hypercapnic respiratory failure secondary most likely aspiration. Patient had a seizure. Continue vent. Wean as appropriate. Continue Solu-Medrol for today. Reevaluate the need for this tomorrow. (2) Alcohol intoxication Qualifiers: Complication of substance-induced condition: uncomplicated Qualified Code(s ): F10.920 - Alcohol use, unspecified with intoxication, uncomplicated Is this a current diagnosis for this admission?: Yes Plan: Continue propofol and Versed. Apparently, when sedation was reduced yesterday the patient had difficulties on the ventilator. Attempt to reduce again today. The patient's seizures may or may not have been secondary to this. (3) Aspiration pneumonia due to inhalation of vomitus Is this a current diagnosis for this admission?: Yes Plan: Strep is growing in the patient's sputum. Is currently on Levaquin. He spiked a fever yesterday and therefore Vanco was added on. Continue both antibiotics. (4) COPD exacerbation Is this a current diagnosis for this admission?: Yes Plan: Continue antibiotics and Solu-Medrol. This likely was precipitated by underlying aspiration pneumonia. (5) Seizures Is this a current diagnosis for this admission?: Yes Plan: Continue IV Keppra for now. When able we will convert to p.o./PEG - Time Time Spent with patient: 35 or more minutes
[2017-06-29] MEDS: METHYLPREDNISOLONE INJ 40 MG/1 ML SDV IV SCH ×2 (10:20→17:25)
[2017-06-29] MEDS: LEVOFLOXACIN 750 MG/D5W RTU 750 MG/150 ML RTUPB IV SCH (10:20)
[2017-06-29] MEDS: LEVETIRACETAM 500 MG/NACL-ISO 500 MG/100 ML RTUPB IV SCH ×2 (10:25→21:46)
[2017-06-29] MEDS: THIAMINE HCL 100 MG, FOLIC ACID 1 MG in NORMAL SALINE 250 ML IV SCH (10:42)
[2017-06-29 11:24] LABS: CREATININE RESULT 0.54 mg/dL (0.52-1.25)
[2017-06-29] MEDS: IMIPENEM/CILASTATIN SODIUM 500 MG in NORMAL SALINE 100 ML IV SCH ×2 (15:59→21:46)
--- NOTE | 2017-06-29 17:00 | PDOC PROGRESS REPORT ---
Subjective Progress Note for:: 06/29/17 Subjective:: Intubated and sedated Reason For Visit: SEIZURE,ALCOHOL INTOX,COPD EXACERBATION Physical Exam Vital Signs: Temp Pulse Resp BP Pulse Ox 99.9 F 65 20 111/69 98 06/29/17 07:57 06/29/17 08:39 06/29/17 08:39 06/29/17 07:57 06/29/17 08:39 Intake & Output 06/28/17 06/29/17 06/30/17 06:59 06:59 06:59 Intake Total 4021 5264 Output Total 3325 4532 15 Balance 696 732 -15 Weight 73.4 kg 75 kg General appearance: PRESENT: no acute distress, disheveled, obese, well- developed. ABSENT: cooperative, mild distress, morbidly obese, severe distress , thin Head exam: PRESENT: atraumatic, normocephalic Eye exam: PRESENT: conjunctiva pale. ABSENT: conjunctival injection, conjunctiva pink, EOMI, nystagmus, periorbital swelling, scleral icterus Mouth exam: PRESENT: dry mucosa, neck supple, tongue midline, other - ET tube in place Neck exam: ABSENT: carotid bruit, JVD, lymphadenopathy, thyromegaly Respiratory exam: PRESENT: decreased breath sounds, prolonged expiratory phas, rhonchi, symmetrical, unlabored, wheezes. ABSENT: accessory muscle use, chest wall tenderness, clear to auscultation samuel, crackles, rales, retraction, stridor , tachypnea Cardiovascular exam: PRESENT: gallop, RRR, +S1, +S2. ABSENT: clicks, irregular rhythm, rubs Pulses: PRESENT: normal radial pulses GI/Abdominal exam: PRESENT: normal bowel sounds, soft. ABSENT: distended, guarding, mass, organolmegaly, rebound, tenderness Gentrourinary exam: PRESENT: indwelling catheter Extremities exam: ABSENT: clubbing, joint swelling, +1 edema, +2 edema Musculoskeletal exam: ABSENT: ambulatory, deformity, dislocation Skin exam: PRESENT: dry, warm Results Laboratory Results: 06/29/17 04:10 06/29/17 04:10 06/29/17 06/29/17 06/29/17 04:10 04:10 05:25 WBC 14.6 H RBC 4.99 Hgb 15.4 Hct 45.9 MCV 92 MCH 30.8 MCHC 33.5 RDW 13.7 Plt Count 166 Seg Neutrophils % 67.9 Lymphocytes % 16.1 Monocytes % 13.6 H Eosinophils % 1.6 Basophils % 0.8 Absolute Neutrophils 10.0 H Absolute Lymphocytes 2.4 Absolute Monocytes 2.0 H Absolute Eosinophils 0.2 Absolute Basophils 0.1 Carbonic Acid Cancelled HCO3/H2CO3 Ratio Cancelled ABG pH Cancelled ABG pCO2 Cancelled ABG pO2 Cancelled ABG HCO3 Cancelled ABG O2 Saturation Cancelled ABG Base Excess Cancelled FiO2 Cancelled Sodium 142.5 Potassium 3.4 L Chloride 104 Carbon Dioxide 28 Anion Gap 11 BUN 8 Creatinine 0.67 Est GFR ( Amer) > 60 Est GFR (Non-Af Amer) > 60 Glucose 133 H Calcium 8.8 Phosphorus 3.7 Magnesium 2.1 Triglycerides 150 06/29/17 06:20 WBC RBC Hgb Hct MCV MCH MCHC RDW Plt Count Seg Neutrophils % Lymphocytes % Monocytes % Eosinophils % Basophils % Absolute Neutrophils Absolute Lymphocytes Absolute Monocytes Absolute Eosinophils Absolute Basophils Carbonic Acid 1.07 HCO3/H2CO3 Ratio 21:1 ABG pH 7.43 ABG pCO2 35.6 ABG pO2 70.3 L ABG HCO3 23.1 ABG O2 Saturation 94.7 ABG Base Excess -0.6 FiO2 30% Sodium Potassium Chloride Carbon Dioxide Anion Gap BUN Creatinine Est GFR ( Amer) Est GFR (Non-Af Amer) Glucose Calcium Phosphorus Magnesium Triglycerides 06/23/17 06/23/17 06/23/17 06:59 06:59 13:05 Creatine Kinase 93 68 CK-MB (CK-2) 1.52 Troponin I < 0.012 NT-Pro-B Natriuret Pep 06/23/17 06/26/17 13:05 04:07 Creatine Kinase CK-MB (CK-2) 1.14 Troponin I < 0.012 NT-Pro-B Natriuret Pep 113 Impressions: Head CT 06/23/17 00:48 IMPRESSION: No acute intracranial findings. Lines and tubes. EVIDENCE OF ACUTE STROKE: NO. Chest X-Ray 06/29/17 06:00 IMPRESSION: No focal infiltrates. Endotracheal tube, nasogastric tube in positioning Assessment & Plan - Diagnosis (1) Aspiration pneumonia due to inhalation of vomitus Is this a current diagnosis for this admission?: Yes Plan: WBC trending down temperatures trending down (2) COPD exacerbation Is this a current diagnosis for this admission?: Yes Plan: improving ;increased breath sounds over last 24 h (3) Respiratory failure Qualifiers: Chronicity: acute Respiratory failure complication: hypoxia and hypercapnia Qualified Code(s): J96.01 - Acute respiratory failure with hypoxia ; J96.02 - Acute respiratory failure with hypercapnia; J96.02 - Acute respiratory failure with hypercapnia; J96.02 - Acute respiratory failure with hypercapnia Is this a current diagnosis for this admission?: Yes Plan: Slight improvement inFiO2 PaO2 (4) Seizures Is this a current diagnosis for this admission?: Yes Plan: none reported or withessed - Time Total Critical Time (Minutes): 45
[2017-06-29] MEDS: LINEZOLID 600 MG RTU 300 ML IV SCH (21:47)
[2017-06-30] MEDS: PROPOFOL 100 ML IV PRN ×3 (00:09→10:21)
[2017-06-30] MEDS: IPRATROPIUM/ALBUTEROL 0.5-2.5 MG/3 ML AMPUL NEB SCH ×4 (02:14→20:06)
[2017-06-30] MEDS: METHYLPREDNISOLONE INJ 40 MG/1 ML SDV IV SCH ×3 (02:51→21:46)
[2017-06-30] MEDS: IMIPENEM/CILASTATIN SODIUM 500 MG in NORMAL SALINE 100 ML IV SCH ×4 (02:51→20:03)
[2017-06-30] MEDS: MIDAZOLAM HCL 100 ML IV PRN (03:10)
[2017-06-30 04:37] LABS: ANION GAP 11 (5-19); BLOOD UREA NITROGEN 10 mg/dL (7-20); CALCIUM 8.7 mg/dL (8.4-10.2); CARBON DIOXIDE 23 mmol/L (22-30); CHLORIDE 108 mmol/L (98-107); GLUCOSE 185 mg/dL (75-110); MAGNESIUM 2.1 mg/dL (1.6-2.3); POTASSIUM 4.2 mmol/L (3.6-5.0); SODIUM 142.4 mmol/L (137-145)
[2017-06-30 04:49] LABS: ARTERIAL BLOOD BASE EXCESS 0.9 mmol/L; ARTERIAL BLOOD O2 SATURATION 95.8 % (94-98)
[2017-06-30 05:02] LABS: ABSOLUTE BASOPHILS # (AUTO) 0.1 10^3/uL (0.0-0.2); ABSOLUTE LYMPHOCYTES (AUTO) 1.1 10^3/uL (0.5-4.7); ABSOLUTE MONOCYTES (AUTO) 1.1 10^3/uL (0.1-1.4); ABSOLUTE NEUT (AUTO) 7.8 10^3/uL (1.7-8.2); BASOPHILS % (AUTO) 0.8 % (0-2); HEMATOCRIT 40.6 % (37.9-51.0); HEMOGLOBIN 13.9 g/dL (13.5-17.0); HGB HCT DIFFERENCE 1.1; LYMPHOCYTES % (AUTO) 10.6 % (13-45); MEAN CORPUSCULAR HEMOGLOBIN 31.5 pg (27.0-33.4); MEAN CORPUSCULAR HGB CONC 34.3 g/dL (32.0-36.0); MEAN CORPUSCULAR VOLUME 92 fl (80-97); MONOCYTES % (AUTO) 11.2 % (3-13); RED BLOOD COUNT 4.43 10^6/uL (4.35-5.55); RED CELL DISTRIBUTION WIDTH 13.6 % (11.5-14.0); SEGMENTED NEUTROPHILS % (AUTO) 77.4 % (42-78)
[2017-06-30] MEDS: LANSOPRAZOLE 30 MG TAB.RAP.DR NG SCH ×2 (05:11→18:34)
[2017-06-30] MEDS: HEPARIN SOD (PORCINE) 5,000 UNIT/ML 1 ML SYRINGE SUBCUT SCH ×3 (05:11→21:46)
[2017-06-30] MEDS: 1/2 NORMAL SALINE 1,000 ML IV PRN ×2 (05:52→20:04)
--- NOTE | 2017-06-30 06:46 | RADIOLOGY REPORT (SQ) ---
EXAM DESCRIPTION: CHEST SINGLE VIEW COMPLETED DATE/TIME: 06/30/2017 6:13 am REASON FOR STUDY: RESP FAILURE/PNA COMPARISON: Chest x-ray 06/29/2017. EXAM PARAMETERS: NUMBER OF VIEWS: One view TECHNIQUE: Single frontal radiograph of the chest. RADIATION DOSE: N/A LIMITATIONS: None. FINDINGS: TEMPORARY SUPPORT DEVICES:ETT in expected location. NG tube courses below the left giovany-d iaphragm in to the stomach. LUNGS AND PLEURA: Ground-glass opacity at the left lung base. No sizable pleural effusion or pneumot horax. Hyperlucent lungs are suggestive of emphysema. MEDIASTINUM AND HILAR STRUCTURES: No masses. Contour normal. HEART AND VASCULAR STRUCTURES: The heart is not enlarged. No overt vascular congestion. BONES: Degenerative changes in the spine. IMPRESSION: Interval development of ground-glass opacity at the left lung base, may represent atelec tasis or pneumonia. Emphysema. TECHNICAL DOCUMENTATION: JOB ID: [id number] 2010 [employer]- All Rights Reserved
--- NOTE | 2017-06-30 09:56 | PDOC PROGRESS REPORT ---
Subjective Progress Note for:: 06/30/17 Subjective:: This is a follow-up visit for acute respiratory failure and seizures. Patient is intubated. Review of systems cannot be obtained. No acute events overnight. Reason For Visit: SEIZURE,ALCOHOL INTOX,COPD EXACERBATION Physical Exam Vital Signs: Temp Pulse Resp BP Pulse Ox 98.4 F 90 20 115/68 95 06/30/17 06:03 06/30/17 02:15 06/30/17 06:03 06/30/17 06:03 06/30/17 06:03 Intake & Output 06/29/17 06/30/17 07/01/17 06:59 06:59 06:59 Intake Total 5264 4468 Output Total 4532 3365 Balance 732 1103 Weight 75 kg 75.2 kg Vent: CPAP mode. Drips: Propofol, Versed Antibiotics: Primaxin and Zyvox Lines: Bilateral peripheral IVs GENERAL: This is a well-developed and nourished appearing white male resting in bed currently on the ventilator. The patient has been temporarily held for weaning trial. Patient appears slightly diaphoretic. HEENT: ET tube is currently in place with Dobbhoff. HEART: Regular rate and rhythm. No murmurs, rubs or gallops. LUNGS: Clear to auscultation anteriorly bilaterally with equal rise and fall of the chest. ABDOMEN: Soft, nontender, nondistended with normoactive bowel sounds. Tube feeds are currently off. EXTREMETIES: No clubbing, cyanosis or edema. 2+ peripheral pulses bilaterally. NEURO: Awake and somewhat alert. Results Laboratory Results: 06/30/17 03:47 06/30/17 03:47 06/29/17 06/30/17 06/30/17 10:54 03:47 03:47 WBC 10.0 RBC 4.43 Hgb 13.9 Hct 40.6 MCV 92 MCH 31.5 MCHC 34.3 RDW 13.6 Plt Count 202 Seg Neutrophils % 77.4 Lymphocytes % 10.6 L Monocytes % 11.2 Eosinophils % 0.0 Basophils % 0.8 Absolute Neutrophils 7.8 Absolute Lymphocytes 1.1 Absolute Monocytes 1.1 Absolute Eosinophils 0.0 Absolute Basophils 0.1 Carbonic Acid HCO3/H2CO3 Ratio ABG pH ABG pCO2 ABG pO2 ABG HCO3 ABG O2 Saturation ABG Base Excess FiO2 Sodium 142.4 Potassium 4.2 Chloride 108 H Carbon Dioxide 23 Anion Gap 11 BUN 10 Creatinine 0.54 0.50 L Est GFR ( Amer) > 60 > 60 Est GFR (Non-Af Amer) > 60 > 60 Glucose 185 H Calcium 8.7 Magnesium 2.1 06/30/17 04:33 WBC RBC Hgb Hct MCV MCH MCHC RDW Plt Count Seg Neutrophils % Lymphocytes % Monocytes % Eosinophils % Basophils % Absolute Neutrophils Absolute Lymphocytes Absolute Monocytes Absolute Eosinophils Absolute Basophils Carbonic Acid 1.20 HCO3/H2CO3 Ratio 21:1 ABG pH 7.42 ABG pCO2 40.0 ABG pO2 78.0 L ABG HCO3 25.4 ABG O2 Saturation 95.8 ABG Base Excess 0.9 FiO2 40% Sodium Potassium Chloride Carbon Dioxide Anion Gap BUN Creatinine Est GFR ( Amer) Est GFR (Non-Af Amer) Glucose Calcium Magnesium 06/23/17 06/23/17 06/23/17 06:59 06:59 13:05 Creatine Kinase 93 68 CK-MB (CK-2) 1.52 Troponin I < 0.012 NT-Pro-B Natriuret Pep 06/23/17 06/26/17 13:05 04:07 Creatine Kinase CK-MB (CK-2) 1.14 Troponin I < 0.012 NT-Pro-B Natriuret Pep 113 Impressions: Head CT 06/23/17 00:48 IMPRESSION: No acute intracranial findings. Lines and tubes. EVIDENCE OF ACUTE STROKE: NO. Chest X-Ray 06/30/17 06:00 IMPRESSION: Interval development of ground-glass opacity at the left lung base , may represent atelectasis or pneumonia. Emphysema. Assessment & Plan - Diagnosis (1) Acute respiratory failure with hypoxemia Is this a current diagnosis for this admission?: Yes Plan: Acute hypoxemic, hypercapnic respiratory failure secondary most likely secondary to aspiration. Patient had a seizure. Continue vent. Wean as appropriate. Continue Solu-Medrol for today with decreased frequency of every 12. (2) Alcohol intoxication Qualifiers: Complication of substance-induced condition: uncomplicated Qualified Code(s ): F10.920 - Alcohol use, unspecified with intoxication, uncomplicated Is this a current diagnosis for this admission?: Yes Plan: Continue propofol and Versed as appropriate. Currently it is held for weaning trial. The patient's seizures may or may not have been secondary to alcohol withdrawal. (3) Aspiration pneumonia due to inhalation of vomitus Is this a current diagnosis for this admission?: Yes Plan: Strep is growing in the patient's sputum. The patient was on Levaquin and vancomycin was added due to spiking fever. He was changed to Primaxin and Zyvox. I will give him another 24 hours on these antibiotics and see how he does. If he does well I think we can scale back to the Levaquin again. (4) COPD exacerbation Is this a current diagnosis for this admission?: Yes Plan: Continue antibiotics and Solu-Medrol. This likely was precipitated by underlying aspiration pneumonia. (5) Seizures Is this a current diagnosis for this admission?: Yes Plan: Continue IV Keppra for now. When able we will convert to p.o./PEG - Time Time Spent with patient: 15-24 minutes
[2017-06-30] MEDS: LEVETIRACETAM 500 MG/NACL-ISO 500 MG/100 ML RTUPB IV SCH ×2 (10:22→21:45)
[2017-06-30] MEDS: LINEZOLID 600 MG RTU 300 ML IV SCH ×2 (10:23→21:46)
[2017-06-30] MEDS: THIAMINE HCL 100 MG, FOLIC ACID 1 MG in NORMAL SALINE 250 ML IV SCH (10:24)
[2017-06-30] MEDS ORDERED: DEXAMETHASONE SOD PHOSPHATE INJ 4 MG/1 ML VIAL IV ONE (11:00)
[2017-06-30] MEDS: ACETAMINOPHEN 325 MG TABLET NG PRN (23:10)
[2017-07-01 00:38] LABS: ANION GAP 11 (5-19); BLOOD UREA NITROGEN 14 mg/dL (7-20); CALCIUM 9.1 mg/dL (8.4-10.2); CARBON DIOXIDE 27 mmol/L (22-30); CHLORIDE 108 mmol/L (98-107); CREATININE RESULT 0.53 mg/dL (0.52-1.25); GLUCOSE 156 mg/dL (75-110); POTASSIUM 3.4 mmol/L (3.6-5.0); SODIUM 146.3 mmol/L (137-145)
[2017-07-01] MEDS ORDERED: POTASSIUM CHLORIDE 10 MEQ TABLET.SA PO ONE (01:07)
[2017-07-01] MEDS ORDERED: MAG HYDROX/AL HYDROX/SIMETH SUSP 30 ML UDCUP PO ONE (01:10)
[2017-07-01] MEDS ORDERED: LIDOCAINE 2% VISCOUS SOLN 20 ML UDCUP PO ONE (01:10)
[2017-07-01] MEDS ORDERED: ASPIRIN 81 MG TABLET, CHEWABLE PO ONE (01:13)
[2017-07-01] MEDS: IPRATROPIUM/ALBUTEROL 0.5-2.5 MG/3 ML AMPUL NEB SCH ×4 (01:26→21:13)
[2017-07-01] MEDS: IMIPENEM/CILASTATIN SODIUM 500 MG in NORMAL SALINE 100 ML IV SCH ×4 (03:18→21:39)
[2017-07-01] MEDS: LANSOPRAZOLE 30 MG TAB.RAP.DR NG SCH ×2 (04:56→16:57)
[2017-07-01] MEDS: HEPARIN SOD (PORCINE) 5,000 UNIT/ML 1 ML SYRINGE SUBCUT SCH ×3 (04:57→21:39)
[2017-07-01 06:19] LABS: ARTERIAL BLOOD O2 SATURATION 97.5 % (94-98)
--- NOTE | 2017-07-01 07:42 | RADIOLOGY REPORT (SQ) ---
EXAM DESCRIPTION: CHEST SINGLE VIEW COMPLETED DATE/TIME: 07/01/2017 6:26 am REASON FOR STUDY: resp failure COMPARISON: Chest x-ray 06/30/2017. EXAM PARAMETERS: NUMBER OF VIEWS: One view. TECHNIQUE: Single frontal radiographic view of the chest acquired. RADIATION DOSE: NA LIMITATIONS: None. FINDINGS: LUNGS AND PLEURA: Interval decrease in the left basilar airspace opacity. No sizable pleu ral effusion or pneumothorax. Hyperlucent lungs are suggestive of emphysema. MEDIASTINUM AND HILAR STRUCTURES: No masses. Contour normal. HEART AND VASCULAR STRUCTURES: Heart normal in size. Normal vasculature. BONES: Degenerative changes in the spine. HARDWARE: The endotracheal tube and the enteric tube have been removed. IMPRESSION: Interval improvement in the aeration of the lungs with decrease in the left basilar airs pace opacity. Emphysema. TECHNICAL DOCUMENTATION: JOB ID: [id number] 2010 [employer]- All Rights Reserved
--- NOTE | 2017-07-01 07:48 | EKG REPORT ---
SEVERITY:- NORMAL ECG - SINUS RHYTHM : Confirmed by: Adair Johnson MD 01-Jul-2017 07:47:44
--- NOTE | 2017-07-01 07:48 | EKG REPORT ---
SEVERITY:- BORDERLINE ECG - SINUS RHYTHM PROBABLE LEFT ATRIAL ABNORMALITY : Confirmed by: Adair Johnson MD 01-Jul-2017 07:48:00
--- NOTE | 2017-07-01 07:50 | EKG REPORT ---
SEVERITY:- ABNORMAL ECG - SINUS RHYTHM VENTRICULAR TRIGEMINY PROBABLE LEFT ATRIAL ABNORMALITY ABNRM R PROG, CONSIDER ASMI OR LEAD PLACEMENT BORDERLINE T ABNORMALITIES, INFERIOR LEADS : Confirmed by: Adair Johnson MD 01-Jul-2017 07:48:32
[2017-07-01 09:20] LABS: ABSOLUTE BASOPHILS # (AUTO) 0.1 10^3/uL (0.0-0.2); ABSOLUTE LYMPHOCYTES (AUTO) 2.3 10^3/uL (0.5-4.7); ABSOLUTE MONOCYTES (AUTO) 1.2 10^3/uL (0.1-1.4); ABSOLUTE NEUT (AUTO) 8.5 10^3/uL (1.7-8.2); HEMATOCRIT 41.6 % (37.9-51.0); HEMOGLOBIN 13.8 g/dL (13.5-17.0); HGB HCT DIFFERENCE -0.2; LYMPHOCYTES % (AUTO) 19.3 % (13-45); MEAN CORPUSCULAR HEMOGLOBIN 30.9 pg (27.0-33.4); MEAN CORPUSCULAR HGB CONC 33.3 g/dL (32.0-36.0); MEAN CORPUSCULAR VOLUME 93 fl (80-97); MONOCYTES % (AUTO) 9.8 % (3-13); RED BLOOD COUNT 4.48 10^6/uL (4.35-5.55); RED CELL DISTRIBUTION WIDTH 13.9 % (11.5-14.0); SEGMENTED NEUTROPHILS % (AUTO) 69.9 % (42-78); WHITE BLOOD COUNT 12.2 10^3/uL (4.0-10.5)
[2017-07-01 09:44] LABS: ANION GAP 11 (5-19); BLOOD UREA NITROGEN 16 mg/dL (7-20); CALCIUM 9.1 mg/dL (8.4-10.2); CARBON DIOXIDE 28 mmol/L (22-30); CHLORIDE 108 mmol/L (98-107); CREATININE RESULT 0.61 mg/dL (0.52-1.25); GLUCOSE 107 mg/dL (75-110); MAGNESIUM 2.1 mg/dL (1.6-2.3); POTASSIUM 4.2 mmol/L (3.6-5.0); SODIUM 146.5 mmol/L (137-145)
[2017-07-01] MEDS: LEVETIRACETAM 500 MG/NACL-ISO 500 MG/100 ML RTUPB IV SCH ×2 (10:21→21:38)
[2017-07-01] MEDS: LINEZOLID 600 MG RTU 300 ML IV SCH ×2 (10:23→21:39)
[2017-07-01] MEDS: THIAMINE HCL 100 MG, FOLIC ACID 1 MG in NORMAL SALINE 250 ML IV SCH (10:23)
[2017-07-01] MEDS: METHYLPREDNISOLONE INJ 40 MG/1 ML SDV IV SCH ×2 (10:24→21:39)
--- NOTE | 2017-07-01 12:47 | PDOC PROGRESS REPORT ---
Subjective Progress Note for:: 07/01/17 Subjective:: f/u seizure, ETOH intox, COPD exac, acute hypoxic resp failure Patient successfully extubated yesterday and did relatively well overnight. He did suffer a sudden onset of bigeminy during the night, noted to have hypokalemia and once the potassium was replaced he experienced no further arrhythmias. He is reporting multiple hallucinations, mostly visual with bright colors and lines in his vision particularly with his eyes closed but he also notices olfactory and taste altered there are no auditory hallucinations. He denies chest pain, palpitations, fever, chills, headache, numbness or tingling, nausea vomiting or diarrhea. ROS: All systems reviewed, see above, remaining systems negative. Reason For Visit: SEIZURE,ALCOHOL INTOX,COPD EXACERBATION Physical Exam Vital Signs: Temp Pulse Resp BP Pulse Ox 98.1 F 68 16 119/71 97 07/01/17 10:03 07/01/17 08:05 07/01/17 10:03 07/01/17 10:03 07/01/17 08:05 Intake & Output 06/30/17 07/01/17 07/02/17 06:59 06:59 06:59 Intake Total 4468 3721 300 Output Total 3365 4255 45 Balance 1103 -534 255 Weight 75.2 kg 74.8 kg General appearance: PRESENT: no acute distress, well-developed, well-nourished Head exam: PRESENT: atraumatic, normocephalic Eye exam: PRESENT: EOMI, PERRLA. ABSENT: conjunctival injection, scleral icterus Mouth exam: PRESENT: moist Neck exam: ABSENT: tenderness, tracheal deviation Respiratory exam: PRESENT: crackles - Bilateral basis. ABSENT: accessory muscle use, wheezes Cardiovascular exam: PRESENT: RRR - Normal sinus rhythm on the monitor. ABSENT : systolic murmur, tachycardia Pulses: PRESENT: normal radial pulses Vascular exam: PRESENT: normal capillary refill GI/Abdominal exam: PRESENT: normal bowel sounds, soft. ABSENT: tenderness Extremities exam: PRESENT: pedal edema. ABSENT: tenderness - Trace no palpable cords Musculoskeletal exam: PRESENT: full ROM, other - Strength is 4 out of 5 in the upper muscle groups 5 out of 5 in the lower Neurological exam: PRESENT: alert, awake, oriented to person, oriented to place , oriented to time, oriented to situation Psychiatric exam: PRESENT: appropriate affect, normal mood Skin exam: PRESENT: warm Results Laboratory Results: 07/01/17 09:10 07/01/17 09:10 07/01/17 07/01/17 07/01/17 00:03 05:05 05:59 WBC RBC Hgb Hct MCV MCH MCHC RDW Plt Count Seg Neutrophils % Lymphocytes % Monocytes % Eosinophils % Basophils % Absolute Neutrophils Absolute Lymphocytes Absolute Monocytes Absolute Eosinophils Absolute Basophils Carbonic Acid 1.44 H 1.34 HCO3/H2CO3 Ratio 19:1 20:1 ABG pH 7.38 7.42 ABG pCO2 48.0 H 44.5 ABG pO2 45.2 L 97.8 ABG HCO3 27.8 H 28.0 H ABG O2 Saturation 80.0 L 97.5 ABG Base Excess 2.0 3.0 FiO2 2L 2L Sodium 146.3 H Potassium 3.4 L Chloride 108 H Carbon Dioxide 27 Anion Gap 11 BUN 14 Creatinine 0.53 Est GFR ( Amer) > 60 Est GFR (Non-Af Amer) > 60 Glucose 156 H Calcium 9.1 Magnesium 2.0 07/01/17 07/01/17 09:10 09:10 WBC 12.2 H RBC 4.48 Hgb 13.8 Hct 41.6 MCV 93 MCH 30.9 MCHC 33.3 RDW 13.9 Plt Count 286 Seg Neutrophils % 69.9 Lymphocytes % 19.3 Monocytes % 9.8 Eosinophils % 0.0 Basophils % 1.0 Absolute Neutrophils 8.5 H Absolute Lymphocytes 2.3 Absolute Monocytes 1.2 Absolute Eosinophils 0.0 Absolute Basophils 0.1 Carbonic Acid HCO3/H2CO3 Ratio ABG pH ABG pCO2 ABG pO2 ABG HCO3 ABG O2 Saturation ABG Base Excess FiO2 Sodium 146.5 H Potassium 4.2 Chloride 108 H Carbon Dioxide 28 Anion Gap 11 BUN 16 Creatinine 0.61 Est GFR ( Amer) > 60 Est GFR (Non-Af Amer) > 60 Glucose 107 Calcium 9.1 Magnesium 2.1 06/23/17 06/23/17 06/23/17 06:59 06:59 13:05 Creatine Kinase 93 68 CK-MB (CK-2) 1.52 Troponin I < 0.012 NT-Pro-B Natriuret Pep 06/23/17 06/26/17 07/01/17 13:05 04:07 00:03 Creatine Kinase CK-MB (CK-2) 1.14 Troponin I < 0.012 0.055 NT-Pro-B Natriuret Pep 113 07/01/17 09:10 Creatine Kinase CK-MB (CK-2) Troponin I 0.035 NT-Pro-B Natriuret Pep Impressions: Chest X-Ray 07/01/17 06:00 IMPRESSION: Interval improvement in the aeration of the lungs with decrease in the left basilar airspace opacity. Emphysema. Status: Image reviewed by me - Agree with radiology Assessment & Plan - Diagnosis (1) Hallucinations Is this a current diagnosis for this admission?: Yes Plan: Unclear etiology with multiple possibilities here. Check an EEG to rule out temporal lobe and frontal lobe seizures. Check MRI to rule out space-occupying lesions or other anatomic abnormalities. Most likely related to medication use with Primaxin leading potential culprit but also high-dose steroids could be indicated. Furthermore this may be late effect from his seizures and alcohol withdrawal. No clear evidence of Wernicke's encephalopathy at this time. (2) Acute respiratory failure with hypoxemia Is this a current diagnosis for this admission?: Yes Plan: Patient was successfully extubated, continue to increase activity, start incentive spirometer. Wean supplemental O2 as needed. (3) Alcohol intoxication Qualifiers: Complication of substance-induced condition: uncomplicated Qualified Code(s ): F10.920 - Alcohol use, unspecified with intoxication, uncomplicated Is this a current diagnosis for this admission?: Yes Plan: No further evidence of withdrawal. Continue thiamine (4) Aspiration pneumonia due to inhalation of vomitus Is this a current diagnosis for this admission?: Yes Plan: Continue broad-spectrum antibiotics. (5) COPD exacerbation Is this a current diagnosis for this admission?: Yes Plan: Improved continue current care and wean steroids as tolerated. (6) Seizures Is this a current diagnosis for this admission?: Yes Plan: Likely alcohol withdrawal related, no recurrent seizure activity. Continue Keppra. - Time Time Spent with patient: 35 or more minutes Medications reviewed and adjusted accordingly: Yes - Plan Summary Plan Summary: Start physical therapy. DC IV fluids. Downgrade to monitor bed.
--- NOTE | 2017-07-01 15:59 | EEG PRO FEE REPORT ---
EEG INTERPRETATION PATIENT NAME: WILLIAM MAGALLON ROOM#: [id number] ORDER#: [id number] DATE OF STUDY: 07/01/2017 : 1965 REFERRING MD: HANNA CASTILLO M.D. DIAGNOSIS: Seizures REPORT The background activity consists of a lot of superimposed motion artifact on a background of around 8-9 Hz of low to medium voltage. No definite epileptiform activity is seen either in the video or during the tracing. No amplitude asymmetry or clear focal slowing is noted. IMPRESSION Normal EEG for age with excess motion artifact at times INTERPRETING PHYSICIAN: ADAM OAKLEY M.D. /: MTEFFT TT: [id number] ID: [id number] /: [id number] TD: 1323 JOB: [id number] cc:Vivian MARTIN M.D. LARRY LAWRENCE, M.D. >
--- NOTE | 2017-07-01 16:48 | RADIOLOGY REPORT (SQ) ---
EXAM DESCRIPTION: MRI HEAD COMBO COMPLETED DATE/TIME: 07/01/2017 4:34 pm REASON FOR STUDY: seizures. with/without constrast COMPARISON: CT brain 06/23/2017 TECHNIQUE: Multiplanar imaging includes noncontrasted T1, T2, FLAIR, diffusion with ADC map and post gadolinium contrast T1 sequences. Images stored on PACS. CONTRAST TYPE AND DOSE: 15 mL Magnevist. RENAL FUNCTION: GFR > 60. LIMITATIONS: None. FINDINGS: ANATOMY: No congenital anomalies. Normal vascular flow voids. Pituitary fossa normal. CSF SPACES: Normal in size and contour. No hemorrhage. CEREBRUM: Mild spotty increased FLAIR/ T2 signal in the bifrontal and biparietal white matter, right and left posterior temporal white matter and mid ricardo, likely small vessel chronic ischemic change. No MR evidence of acute ischemic change, acute intracranial hemorrhage, mass effect, or midline shift . POSTERIOR FOSSA: Ricardo chronic small vessel ischemic change with increased FLAIR/ T2 signal. No acute hemorrhage. No edema, masses, or mass effect. Internal auditory canals, cerebellopontine angles, mast oids normal. No enhancing lesions. No abnormal enhancement post contrast. DIFFUSION IMAGING: Negative for acute or subacute infarction. ORBITS: No masses. Globes normal. PARANASAL SINUSES: No fluid levels. Mucosa normal. OTHER: No other significant finding. IMPRESSION: Mild chronic small vessel ischemic change in the hemispheric white matter and ricardo. Otherwise unremarkable study EVIDENCE OF ACUTE STROKE: NO. TECHNICAL DOCUMENTATION: JOB ID: [id number]- All Rights Reserved
--- NOTE | 2017-07-01 18:50 | EKG REPORT ---
SEVERITY:- OTHERWISE NORMAL ECG - SINUS ARRHYTHMIA, RATE 46-66 : Confirmed by: Adair Johnson MD 01-Jul-2017 18:50:06
[2017-07-01] MEDS ORDERED: DIPHENHYDRAMINE HCL 50 MG/ML VIAL IV ONE (22:30)
[2017-07-02] MEDS: IPRATROPIUM/ALBUTEROL 0.5-2.5 MG/3 ML AMPUL NEB SCH ×4 (01:52→20:21)
[2017-07-02 03:27] LABS: ABSOLUTE BASOPHILS # (AUTO) 0.1 10^3/uL (0.0-0.2); ABSOLUTE LYMPHOCYTES (AUTO) 1.5 10^3/uL (0.5-4.7); ABSOLUTE MONOCYTES (AUTO) 0.8 10^3/uL (0.1-1.4); ABSOLUTE NEUT (AUTO) 9.2 10^3/uL (1.7-8.2); BASOPHILS % (AUTO) 0.6 % (0-2); EOSINOPHILS % (AUTO) 0.1 % (0-6); HEMATOCRIT 41.5 % (37.9-51.0); HEMOGLOBIN 13.9 g/dL (13.5-17.0); HGB HCT DIFFERENCE 0.2; MEAN CORPUSCULAR HEMOGLOBIN 30.9 pg (27.0-33.4); MEAN CORPUSCULAR HGB CONC 33.5 g/dL (32.0-36.0); MEAN CORPUSCULAR VOLUME 92 fl (80-97); MONOCYTES % (AUTO) 7.1 % (3-13); RED CELL DISTRIBUTION WIDTH 13.4 % (11.5-14.0); SEGMENTED NEUTROPHILS % (AUTO) 79.2 % (42-78); WHITE BLOOD COUNT 11.7 10^3/uL (4.0-10.5)
[2017-07-02 03:52] LABS: ANION GAP 9 (5-19); BLOOD UREA NITROGEN 15 mg/dL (7-20); CALCIUM 9.2 mg/dL (8.4-10.2); CARBON DIOXIDE 27 mmol/L (22-30); CHLORIDE 104 mmol/L (98-107); CREATININE RESULT 0.55 mg/dL (0.52-1.25); GLUCOSE 122 mg/dL (75-110); PHOSPHORUS 4.4 mg/dL (2.5-4.5); POTASSIUM 4.4 mmol/L (3.6-5.0); SODIUM 140.1 mmol/L (137-145)
[2017-07-02] MEDS: LANSOPRAZOLE 30 MG TAB.RAP.DR NG SCH ×2 (05:46→17:09)
[2017-07-02] MEDS: HEPARIN SOD (PORCINE) 5,000 UNIT/ML 1 ML SYRINGE SUBCUT SCH ×3 (05:46→22:08)
[2017-07-02] MEDS: IMIPENEM/CILASTATIN SODIUM 500 MG in NORMAL SALINE 100 ML IV SCH ×2 (05:46→11:12)
[2017-07-02] MEDS: POTASSIUM CHLORIDE 10 MEQ TABLET.SA PO SCH (10:20)
[2017-07-02] MEDS: LEVETIRACETAM 500 MG/NACL-ISO 500 MG/100 ML RTUPB IV SCH (10:24)
[2017-07-02] MEDS: METHYLPREDNISOLONE INJ 40 MG/1 ML SDV IV SCH (11:18)
--- NOTE | 2017-07-02 12:52 | PDOC PROGRESS REPORT ---
Subjective Progress Note for:: 07/02/17 Subjective:: This is a follow-up visit for acute respiratory failure and seizures. Status post intubation. Patient states his hallucinations are completely gone. He states that he never had any auditory or tactile hallucinations to go along with it. He says that he was seeing planets at [facility]. He states that he is worried about his . His has not been able to come up and see him because she has no motor transportation. 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 Since his been hospitalized he has no money and his option to remain in the hotel where his resides will end on Wednesday. The patient states that he has been up and walking the halls today. Reason For Visit: SEIZURE,ALCOHOL INTOX,COPD EXACERBATION Physical Exam Vital Signs: Temp Pulse Resp BP Pulse Ox 98.3 F 67 17 150/79 H 95 07/02/17 08:00 07/02/17 08:00 07/02/17 08:00 07/02/17 08:00 07/02/17 08:00 Intake & Output 07/01/17 07/02/17 07/03/17 06:59 06:59 06:59 Intake Total 3721 2100 Output Total 4255 1420 Balance -534 680 Weight 74.8 kg 74.8 kg GENERAL: This is a well-developed and nourished appearing white male resting in bed currently currently in no acute distress. HEART: Regular rate and rhythm. No murmurs, rubs or gallops. LUNGS: Clear to auscultation anteriorly bilaterally with equal rise and fall of the chest. ABDOMEN: Soft, nontender, nondistended with normoactive bowel sounds. EXTREMETIES: No clubbing, cyanosis or edema. 2+ peripheral pulses bilaterally. NEURO: Awake and alert. Results Laboratory Results: 07/02/17 03:10 07/02/17 03:10 07/02/17 07/02/17 03:10 03:10 WBC 11.7 H RBC 4.50 Hgb 13.9 Hct 41.5 MCV 92 MCH 30.9 MCHC 33.5 RDW 13.4 Plt Count 318 Seg Neutrophils % 79.2 H Lymphocytes % 13.0 Monocytes % 7.1 Eosinophils % 0.1 Basophils % 0.6 Absolute Neutrophils 9.2 H Absolute Lymphocytes 1.5 Absolute Monocytes 0.8 Absolute Eosinophils 0.0 Absolute Basophils 0.1 Sodium 140.1 Potassium 4.4 Chloride 104 Carbon Dioxide 27 Anion Gap 9 BUN 15 Creatinine 0.55 Est GFR ( Amer) > 60 Est GFR (Non-Af Amer) > 60 Glucose 122 H Calcium 9.2 Phosphorus 4.4 Magnesium 2.0 06/23/17 06/23/17 06/23/17 06:59 06:59 13:05 Creatine Kinase 93 68 CK-MB (CK-2) 1.52 Troponin I < 0.012 NT-Pro-B Natriuret Pep 06/23/17 06/26/17 07/01/17 13:05 04:07 00:03 Creatine Kinase CK-MB (CK-2) 1.14 Troponin I < 0.012 0.055 NT-Pro-B Natriuret Pep 113 07/01/17 07/01/17 07/01/17 09:10 15:30 20:17 Creatine Kinase CK-MB (CK-2) Troponin I 0.035 0.013 0.019 NT-Pro-B Natriuret Pep 07/02/17 07/02/17 03:10 09:05 Creatine Kinase CK-MB (CK-2) Troponin I < 0.012 < 0.012 NT-Pro-B Natriuret Pep Impressions: Head CT 06/23/17 00:48 IMPRESSION: No acute intracranial findings. Lines and tubes. EVIDENCE OF ACUTE STROKE: NO. Head MRI 07/01/17 00:00 IMPRESSION: Mild chronic small vessel ischemic change in the hemispheric white matter and yessi. Otherwise unremarkable study EVIDENCE OF ACUTE STROKE: NO. Chest X-Ray 07/01/17 06:00 IMPRESSION: Interval improvement in the aeration of the lungs with decrease in the left basilar airspace opacity. Emphysema. Assessment & Plan - Diagnosis (1) Acute respiratory failure with hypoxemia Is this a current diagnosis for this admission?: Yes Plan: Acute hypoxemic, hypercapnic respiratory failure secondary most likely secondary to aspiration. Patient had a seizure. This is followed by visual hallucinations yesterday. This is resolved. Decrease steroids down to daily (2) Alcohol intoxication Qualifiers: Complication of substance-induced condition: uncomplicated Qualified Code(s ): F10.920 - Alcohol use, unspecified with intoxication, uncomplicated Is this a current diagnosis for this admission?: Yes Plan: Resolved. His seizures could have been related to alcohol withdrawal. Patient states he usually drinks 240s at night. He states that he has been consistent in doing this. (3) Aspiration pneumonia due to inhalation of vomitus Is this a current diagnosis for this admission?: Yes Plan: Strep is growing in the patient's sputum. Discontinue Linezolid and return to Levaquin only. (4) COPD exacerbation Is this a current diagnosis for this admission?: Yes Plan: Continue antibiotics and Solu-Medrol. This likely was precipitated by underlying aspiration pneumonia. (5) Seizures Is this a current diagnosis for this admission?: Yes Plan: Change Keppra to 500 p.o. twice daily. EEG was normal. (6) Hallucinations Is this a current diagnosis for this admission?: Yes Plan: Resolved. I suspect secondary to Versed and propofol the patient had been on while intubated. One would expect hallucinations to go along with alcohol withdrawal. However, the patient has been through the withdrawal process already. - Time Time Spent with patient: 15-24 minutes
[2017-07-02] MEDS: THIAMINE HCL 100 MG, FOLIC ACID 1 MG in NORMAL SALINE 250 ML IV SCH (12:59)
[2017-07-02] MEDS: LEVETIRACETAM 500 MG TABLET PO SCH (22:07)
[2017-07-03] MEDS: IPRATROPIUM/ALBUTEROL 0.5-2.5 MG/3 ML AMPUL NEB SCH ×2 (01:35→08:41)
[2017-07-03] MEDS: LANSOPRAZOLE 30 MG TAB.RAP.DR NG SCH (06:12)
[2017-07-03] MEDS: HEPARIN SOD (PORCINE) 5,000 UNIT/ML 1 ML SYRINGE SUBCUT SCH ×2 (06:12→13:10)
[2017-07-03] MEDS: LEVETIRACETAM 500 MG TABLET PO SCH (10:00)
[2017-07-03] MEDS: POTASSIUM CHLORIDE 10 MEQ TABLET.SA PO SCH (10:00)
[2017-07-03] MEDS ORDERED: LEVOFLOXACIN 500 MG TABLET PO SCH (10:00)
[2017-07-03] MEDS ORDERED: METHYLPREDNISOLONE INJ 40 MG/1 ML SDV IV SCH (10:00)
[2017-07-03] MEDS: THIAMINE HCL 100 MG, FOLIC ACID 1 MG in NORMAL SALINE 250 ML IV SCH (10:01)
[2017-07-03 10:32] VITALS: BP 117/73
--- NOTE | 2017-07-03 10:32 | PDOC DISCHARGE SUMMARY ---
General - Admit/Disc Date/PCP Admission Date/Primary Care Provider: 06/23/17 03:39 Discharge Date: 07/03/17 - Discharge Diagnosis (1) Acute respiratory failure with hypoxemia Is this a current diagnosis for this admission?: Yes Summary: Patient was intubated at time of admission. Patient was placed on broad- spectrum antibiotics breathing treatments and pulmonary consult was placed. Patient was extubated and has done well since extubation. (2) Alcohol intoxication Is this a current diagnosis for this admission?: Yes Summary: Patient was placed on thiamine folate and benzos. Patient currently not experiencing alcohol withdrawal. (3) Aspiration pneumonia due to inhalation of vomitus Is this a current diagnosis for this admission?: Yes Summary: Patient placed on broad-spectrum antibiotics which was narrowed to Levaquin. (4) COPD exacerbation Is this a current diagnosis for this admission?: Yes Summary: Patient was treated for COPD exacerbation with steroids, breathing treatments, and antibiotics. At time of discharge patient's respiratory function at baseline patient requires no additional treatment. (5) Hallucinations Is this a current diagnosis for this admission?: Yes Summary: Possibly secondary to Versed, steroids, or propofol: Resolved (6) Seizures Is this a current diagnosis for this admission?: Yes Summary: Patient's EEG demonstrated no evidence of seizure activity. Patient's seizures most likely secondary to EtOH abuse. Patient was placed on Keppra and will be discharged home on Keppra. - Additional Information Resuscitation Status: Full Code Discharge Diet: Regular Discharge Activity: Activity As Tolerated Home Medications: Levetiracetam [Keppra 500 mg Tablet] 500 mg PO Q12 #60 tablet 07/03/17 Levofloxacin [Levaquin 500 mg Tablet] 500 mg PO DAILY #5 tablet 07/03/17 History of Present Illness Patient complains of: Seizure History of Present Illness: WILLIAM MAGALLON is a 51 year old male presented to the hospital after experiencing tonic-clonic seizure with respiratory failure. Hospital Course Hospital Course: Patient is a 51-year-old gentleman was admitted to our facility due to seizures and respiratory failure. Patient was also found to be an alcoholic. Patient was intubated in the emergency department and sent to the ICU. Patient was placed on steroids breathing treatments and antibiotics. Patient was extubated and did well. Patient was monitored for alcohol withdrawal throughout hospitalization. Patient was also given vitamin replacement. Patient was noted to have hallucinations during hospitalization which was likely due to medication. Patient did have an EEG that demonstrated no evidence of seizure activity and an MRI that demonstrated no significant findings. Patient was placed on Keppra and was discharged home on Keppra. Patient's respiratory function had greatly improved and at time of discharge patient was on room air. Physical Exam Vital Signs: Temp Pulse Resp BP Pulse Ox 97.7 F 85 16 145/80 H 95 07/03/17 08:11 07/03/17 08:41 07/03/17 08:41 07/03/17 08:11 07/03/17 08:41 Intake & Output 07/02/17 07/03/17 07/04/17 06:59 06:59 06:59 Intake Total 2100 2170 Output Total 1420 875 Balance 680 1295 Weight 74.8 kg 74.5 kg General appearance: PRESENT: no acute distress, well-developed, well-nourished Head exam: PRESENT: atraumatic, normocephalic Eye exam: PRESENT: conjunctiva pink, EOMI, PERRLA. ABSENT: scleral icterus Ear exam: PRESENT: normal external ear exam Mouth exam: PRESENT: moist, tongue midline Neck exam: ABSENT: carotid bruit, JVD, lymphadenopathy, thyromegaly Respiratory exam: PRESENT: clear to auscultation samuel. ABSENT: rales, rhonchi, wheezes Cardiovascular exam: PRESENT: RRR. ABSENT: diastolic murmur, rubs, systolic murmur Pulses: PRESENT: normal dorsalis pedis pul Vascular exam: PRESENT: normal capillary refill GI/Abdominal exam: PRESENT: normal bowel sounds, soft. ABSENT: distended, guarding, mass, organolmegaly, rebound, tenderness Rectal exam: PRESENT: deferred Extremities exam: PRESENT: full ROM. ABSENT: calf tenderness, clubbing, pedal edema Neurological exam: PRESENT: alert, awake, oriented to person, oriented to place , oriented to time, oriented to situation, CN II-XII grossly intact. ABSENT: motor sensory deficit Psychiatric exam: PRESENT: appropriate affect, normal mood. ABSENT: homicidal ideation, suicidal ideation Skin exam: PRESENT: dry, intact, warm. ABSENT: cyanosis, rash Results Laboratory Results: 07/02/17 03:10 07/02/17 03:10 06/28/17 09:19 Blood Blood Culture - Final NO GROWTH IN 5 DAYS 06/28/17 09:26 Blood Blood Culture - Final NO GROWTH IN 5 DAYS 06/23/17 06/23/17 06/23/17 06:59 06:59 13:05 Creatine Kinase 93 68 CK-MB (CK-2) 1.52 Troponin I < 0.012 NT-Pro-B Natriuret Pep 06/23/17 06/26/17 07/01/17 13:05 04:07 00:03 Creatine Kinase CK-MB (CK-2) 1.14 Troponin I < 0.012 0.055 NT-Pro-B Natriuret Pep 113 07/01/17 07/01/17 07/01/17 09:10 15:30 20:17 Creatine Kinase CK-MB (CK-2) Troponin I 0.035 0.013 0.019 NT-Pro-B Natriuret Pep 07/02/17 07/02/17 03:10 09:05 Creatine Kinase CK-MB (CK-2) Troponin I < 0.012 < 0.012 NT-Pro-B Natriuret Pep Impressions: Head CT 06/23/17 00:48 IMPRESSION: No acute intracranial findings. Lines and tubes. EVIDENCE OF ACUTE STROKE: NO. Head MRI 07/01/17 00:00 IMPRESSION: Mild chronic small vessel ischemic change in the hemispheric white matter and yessi. Otherwise unremarkable study EVIDENCE OF ACUTE STROKE: NO. Chest X-Ray 07/01/17 06:00 IMPRESSION: Interval improvement in the aeration of the lungs with decrease in the left basilar airspace opacity. Emphysema. Plan Time Spent: Greater than 30 Minutes
== END 2017-07-03 14:25 | disposition home or self-care (01) | DRG 207 ==
LOC: ER 00:42 → EH 03:39 → ICU 05:08 → 5 07-01 12:39
PROVIDERS: ADMIT Internal Medicine; ATTEND Internal Medicine
PROC: 0BH17EZ Insertion of Endotracheal Airway into Trachea, Via Natural or Artificial Opening (ICD-10-PCS; principal; 2017-06-23)
PROC: 5A1955Z Respiratory Ventilation, Greater than 96 Consecutive Hours (ICD-10-PCS; 2017-06-23)
DX: J96.01 Acute respiratory failure with hypoxia (principal); J69.0 Pneumonitis due to inhalation of food and vomit; J44.1 Chronic obstructive pulmonary disease with (acute) exacerbation; J44.0 Chronic obstructive pulmonary disease with (acute) lower respiratory infection; R44.3 Hallucinations, unspecified; G40.409 Other generalized epilepsy and epileptic syndromes, not intractable, without status epilepticus; F10.129 Alcohol abuse with intoxication, unspecified; F17.200 Nicotine dependence, unspecified, uncomplicated; Z88.0 Allergy status to penicillin; Z88.8 Allergy status to other drugs, medicaments and biological substances; Z91.14 Patient's other noncompliance with medication regimen; T42.4X5A Adverse effect of benzodiazepines, initial encounter; T41.295A Adverse effect of other general anesthetics, initial encounter; Y92.239 Unspecified place in hospital as the place of occurrence of the external cause
CPT/HCPCS: 36415; 51702; 70450; 70553; 71010; 80048; 80053; 80202; 80307; 82550; 82553; 82565; 82803; 82962; 83735; 83880; 84100; 84478; 84484; 85025; 87040; 87070; 87077; 87186; 87205; 93005; 93010; 94002; 94003; 94640; 94660; 94799; 95819; 96365; 96366; 96368; 96375; 99291; 99292; A9577; J0743; J1200; J1644; J1885; J1953; J1956; J2020; J2250; J2704; J2920; J2930; J3370; J3411; J3475; J3490; J7030; J7050; J7060; J7620

== ENCOUNTER 2017-08-19 10:52 | Emergency (ER) | payer SELFPAY ==
[2017-08-19] MEDS ORDERED: IPRATROPIUM/ALBUTEROL 0.5-2.5 MG/3 ML AMPUL NEB ONE (11:15)
[2017-08-19] MEDS ORDERED: PREDNISONE 20 MG TABLET PO ONE (11:15)
--- NOTE | 2017-08-19 11:30 | ER Document Report ---
ED General - General Chief Complaint: Flu Symptoms Stated Complaint: FLU SYMPTOMS Time Seen by Provider: 08/19/17 11:02 Mode of Arrival: Ambulatory Information source: Patient Notes: 52-year-old male history COPD presents with 4 day duration of productive cough shortness of breath and wheezing. He denies any fevers or chills. Patient notes multiple sick contacts at work. Patient does have inhaler and Advair that he has been using TRAVEL OUTSIDE OF THE [place] IN LAST 30 DAYS: No - HPI Onset: Last week Onset/Duration: Persistent Quality of pain: Achy Severity: Mild Pain Level: 1 Associated symptoms: Body/muscle aches, Productive cough, Shortness of breath Exacerbated by: Walking, Coughing Relieved by: Denies Similar symptoms previously: Yes Recently seen / treated by doctor: Yes - Patient was admitted in June for COPD exacerbation - Related Data Allergies/Adverse Reactions: Penicillins Allergy (Verified 08/19/17 10:53) mycins Allergy (Unknown, Uncoded 08/19/17 10:53) Past Medical History - Social History Smoking Status: Current Every Day Smoker Cigarette use (# per day): Yes Chew tobacco use (# tins/day): No Smoking Education Provided: Yes - Patient counselled regarding cessation for 4 minutes Frequency of alcohol use: Denies since June 2017 Drug Abuse: None Family History: COPD Patient has suicidal ideation: No Patient has homicidal ideation: No Pulmonary Medical History: Reports: Hx Asthma, Hx COPD, Hx Pneumonia Neurological Medical History: Reports: Hx Seizures - Last Seizure June 2017 Renal/ Medical History: Denies: Hx Peritoneal Dialysis Past Surgical History: Reports: Hx Appendectomy Review of Systems - Review of Systems Notes: REVIEW OF SYSTEMS: CONSTITUTIONAL : Denies fever, chills, or sweats. Denies recent illness. EENT: Denies eye, ear, throat, or mouth pain or symptoms. Denies nasal or sinus congestion or discharge. Denies throat, tongue, or mouth swelling or difficulty swallowing. CARDIOVASCULAR: Denies chest pain. Denies palpitations or racing or irregular heart beat. Denies ankle edema. RESPIRATORY: Admits to cough shortness of breath GASTROINTESTINAL: Denies abdominal pain or distention. Denies nausea, vomiting , or diarrhea. Denies blood in vomitus, stools, or per rectum. Denies black, tarry stools. Denies constipation. GENITOURINARY: Denies difficulty urinating, painful urination, burning, frequency, blood in urine, or discharge. MUSCULOSKELETAL: admits to body aches SKIN: Denies rash, lesions or sores. HEMATOLOGIC : Denies easy bruising or bleeding. LYMPHATIC: Denies swollen, enlarged glands. NEUROLOGICAL: Denies confusion or altered mental status. Denies passing out or loss of consciousness. Denies dizziness or lightheadedness. Denies headache. Denies weakness or paralysis or loss of use of either side. Denies problems with gait or speech. Denies sensory loss, numbness, or tingling. Denies seizures. PSYCHIATRIC: Denies anxiety or stress. Denies depression, suicidal ideation, or homicidal ideation. ALL OTHER SYSTEMS REVIEWED AND NEGATIVE. Dictation was performed using [employer] voice recognition software PHYSICAL EXAMINATION: GENERAL: Well-appearing, well-nourished and in no acute distress. Patient satting 96% on room air HEAD: Atraumatic, normocephalic. EYES: Pupils equal round and reactive to light, extraocular movements intact, sclera anicteric, conjunctiva are normal. ENT: Nares patent, oropharynx clear without exudates. Moist mucous membranes. NECK: Normal range of motion, supple without lymphadenopathy LUNGS: Coarse wheezing inspiratory expiratory all throughout HEART: Regular rate and rhythm without murmurs ABDOMEN: Soft, nontender, nondistended abdomen. No guarding, no rebound. No masses appreciated. Musculoskeletal: Normal range of motion, no pitting or edema. No cyanosis. NEUROLOGICAL: Cranial nerves grossly intact. Normal speech, normal gait. Normal sensory, motor exams PSYCH: Normal mood, normal affect. SKIN: Warm, Dry, normal turgor, no rashes or lesions noted. Physical Exam - Vital signs Vitals: Temp Pulse Resp BP Pulse Ox 98.3 F 86 18 146/82 H 96 08/19/17 10:57 08/19/17 10:57 08/19/17 10:57 08/19/17 10:57 08/19/17 10:57 Course - Re-evaluation Re-evalutation: 08/19/17 11:31 It is noted to be in no significant respiratory distress, he states he feels much better than when he did in June, he is wheezing therefore DuoNeb has been ordered as well as steroids. Chest x-ray and influenza are pending as well I believe patient is stable for discharge but awaiting results 08/19/17 12:00 X-ray was negative, influenza was negative, patient notes improvement with DuoNeb here. He will use his albuterol inhaler at home, he will be placed on antibiotics and steroids. Even though there is no obvious pneumonia I will treat him with antibiotics for the inflammatory improvement Very strict return precautions have been provided to the patient he states he understands, he has had higher risk given recent admission therefore I have explained my concerns very thoroughly to the patient After performing a Medical Screening Examination, I estimate there is LOW risk for ACUTE CORONARY SYNDROME, PULMONARY EMBOLI, RESPIRATORY FAILURE, SEPSIS OR MENINGITIS, thus I consider the discharge disposition reasonable. I have reevaluated this patient multiple times and no significant life threatening changes are noted. The patient and I have discussed the diagnosis and risks, and we agree with discharging home with close follow-up. We also discussed returning to the Emergency Department immediately if new or worsening symptoms occur. We have discussed the symptoms which are most concerning (e.g., changing or worsening pain, trouble swallowing or breathing, neck stiffness, fever) that necessitate immediate return. - Vital Signs Vital signs: Temp Pulse Resp BP Pulse Ox 98.7 F 82 18 116/72 96 08/19/17 11:56 08/19/17 11:56 08/19/17 11:56 08/19/17 11:56 08/19/17 11:56 - Diagnostic Test Radiology reviewed: Image reviewed, Reports reviewed Discharge - Discharge Clinical Impression: COPD exacerbation, Body aches Condition: Stable Disposition: HOME, SELF-CARE Instructions: Chronic Obstructive Lung Disease ([facility]) Additional Instructions: Follow up with your physician tomorrow for further care or return to the ED IMMEDIATELY if symptoms worsen or new concerns occur. If you cannot afford to follow up with your primary care physician a list of low cost clinics have been provided at the end of your discharge papers as well. Prescriptions: Hydrocodone Bit/Homatropine [Hycodan 5-1.5 mg Tablet] 1 tab PO Q4HP PRN #20 tablet PRN Reason: Levofloxacin [Levaquin 750 mg Tablet] 750 mg PO DAILY #5 tablet Prednisone [Deltasone 20 mg Tablet] 3 tab PO DAILY 5 Days tablet
[2017-08-19 11:47] LABS: A TYPE INFLUENZA AG NEGATIVE (NEGATIVE); B INFLUENZA AG NEGATIVE (NEGATIVE)
--- NOTE | 2017-08-19 11:48 | RADIOLOGY REPORT (SQ) ---
EXAM DESCRIPTION: CHEST PA/LAT COMPLETED DATE/TIME: 08/19/2017 11:28 am REASON FOR STUDY: copd exacerbation, productive cough COMPARISON: None. EXAM PARAMETERS: NUMBER OF VIEWS: two views TECHNIQUE: Digital Frontal and Lateral radiographic views of the chest acquired. RADIATION DOSE: NA LIMITATIONS: none FINDINGS: LUNGS AND PLEURA: No opacities, masses or pneumothorax. No pleural effusion. Chronic appe aring changes are identified. There is evidence for obstructive lung disease. MEDIASTINUM AND HILAR STRUCTURES: No masses or contour abnormalities. HEART AND VASCULAR STRUCTURES: Heart normal size. No evidence for failure. BONES: Degenerative changes are identified in the thoracic spine. HARDWARE: None in the chest. OTHER: No other significant finding. IMPRESSION: No acute changes. Obstructive lung disease with chronic appearing changes. Other findi ngs as noted above TECHNICAL DOCUMENTATION: JOB ID: [id number] [employer]- All Rights Reserved
[2017-08-19 11:57] VITALS: BP 116/72
== END 2017-08-19 12:05 | disposition home or self-care (01) ==
LOC: ER 10:52
DX: J44.1 Chronic obstructive pulmonary disease with (acute) exacerbation (principal); M79.1 Myalgia; R05 Cough; R06.02 Shortness of breath; F17.210 Nicotine dependence, cigarettes, uncomplicated
CPT/HCPCS: 99406; 94640; 99283; 87804; 71046; J7512; J7620

== ENCOUNTER 2017-09-20 09:22 | Inpatient (IN) | payer SELFPAY ==
[2017-09-20] MEDS ORDERED: IBUPROFEN 600 MG TABLET PO ONE (10:08)
[2017-09-20] MEDS ORDERED: IPRATROPIUM/ALBUTEROL 0.5-2.5 MG/3 ML AMPUL NEB ONE (10:08)
--- NOTE | 2017-09-20 10:09 | ER Document Report ---
ED Medical Screen (RME) - General Chief Complaint: Chest Pain Stated Complaint: CONGESTION,NAUSEA Time Seen by Provider: 09/20/17 10:08 Notes: 3 days of cough/cold/congest/body aches TRAVEL OUTSIDE OF THE [place] IN LAST 30 DAYS: No - Related Data Allergies/Adverse Reactions: Penicillins Allergy (Verified 09/20/17 09:24) mycins Allergy (Unknown, Uncoded 08/19/17 10:53) Past Medical History - Social History Frequency of alcohol use: Occasional Drug Abuse: None Pulmonary Medical History: Reports: Hx Asthma, Hx COPD, Hx Pneumonia Neurological Medical History: Reports: Hx Seizures - Last Seizure June 2017 Renal/ Medical History: Denies: Hx Peritoneal Dialysis Past Surgical History: Reports: Hx Appendectomy - Immunizations History of Influenza Vaccine for 05/2017 - 09/2017 Season: Unknown Physical Exam - Vital signs Vitals: Temp Pulse Resp BP Pulse Ox 97.9 F 98 16 136/77 H 95 09/20/17 09:40 09/20/17 09:40 09/20/17 09:40 09/20/17 09:40 09/20/17 09:40 Course - Vital Signs Vital signs: Temp Pulse Resp BP Pulse Ox 97.9 F 98 16 136/77 H 95 09/20/17 09:40 09/20/17 09:40 09/20/17 09:40 09/20/17 09:40 09/20/17 09:40
[2017-09-20 10:45] LABS: ABSOLUTE BASOPHILS # (AUTO) 0.1 10^3/uL (0.0-0.2); ABSOLUTE EOSINOPHILS # (AUTO) 0.2 10^3/uL (0.0-0.6); ABSOLUTE LYMPHOCYTES (AUTO) 2.2 10^3/uL (0.5-4.7); ABSOLUTE MONOCYTES (AUTO) 1.7 10^3/uL (0.1-1.4); ABSOLUTE NEUT (AUTO) 14.3 10^3/uL (1.7-8.2); BASOPHILS % (AUTO) 0.7 % (0-2); HEMOGLOBIN 17.5 g/dL (13.5-17.0); LYMPHOCYTES % (AUTO) 11.8 % (13-45); MEAN CORPUSCULAR HEMOGLOBIN 29.6 pg (27.0-33.4); MEAN CORPUSCULAR HGB CONC 32.9 g/dL (32.0-36.0); MEAN CORPUSCULAR VOLUME 90 fl (80-97); MONOCYTES % (AUTO) 9.2 % (3-13); PLATELET COUNT 230 10^3/uL (150-450); RED CELL DISTRIBUTION WIDTH 15.7 % (11.5-14.0); SEGMENTED NEUTROPHILS % (AUTO) 77.3 % (42-78); TOTAL CELLS COUNTED % (AUTO) 100 %; WHITE BLOOD COUNT 18.5 10^3/uL (4.0-10.5)
--- NOTE | 2017-09-20 10:55 | RADIOLOGY REPORT (SQ) ---
EXAM DESCRIPTION: CHEST PA/LAT COMPLETED DATE/TIME: 09/20/2017 10:44 am REASON FOR STUDY: sob/cough COMPARISON: None. EXAM PARAMETERS: NUMBER OF VIEWS: two views TECHNIQUE: Digital Frontal and Lateral radiographic views of the chest acquired. RADIATION DOSE: NA LIMITATIONS: none FINDINGS: LUNGS AND PLEURA: Mild increased interstitial densities more prominent than on the prior s tudy suggesting mild interstitial pneumonitis. No abnormal air space density. No effusions. MEDIASTINUM AND HILAR STRUCTURES: No masses or contour abnormalities. HEART AND VASCULAR STRUCTURES: Heart normal size. No evidence for failure. BONES: Osteopenia and mild degenerative changes. HARDWARE: None in the chest. OTHER: No other significant finding. IMPRESSION: Findings suggest mild interstitial pneumonitis. TECHNICAL DOCUMENTATION: JOB ID: [id number] [employer]- All Rights Reserved
[2017-09-20 11:09] LABS: ALANINE AMINOTRANSFERASE 23 U/L (21-72); ALBUMIN 4.5 g/dL (3.5-5.0); ALKALINE PHOSPHATASE 148 U/L (38-126); ANION GAP 11 (5-19); ASPARTATE AMINO TRANSFERASE 18 U/L (17-59); BILIRUBIN,DIRECT 0.4 mg/dL (0.0-0.4); BILIRUBIN,TOTAL 0.9 mg/dL (0.2-1.3); BLOOD UREA NITROGEN 8 mg/dL (7-20); CARBON DIOXIDE 25 mmol/L (22-30); CHLORIDE 101 mmol/L (98-107); GLUCOSE 104 mg/dL (75-110); POTASSIUM 4.5 mmol/L (3.6-5.0); SODIUM 136.6 mmol/L (137-145); TOTAL PROTEIN 7.7 g/dL (6.3-8.2)
[2017-09-20] MEDS ORDERED: AZITHROMYCIN INJ 500 MG VIAL IV ONE (12:49)
[2017-09-20] MEDS ORDERED: LEVOFLOXACIN 500 MG/D5W RTU 500 MG/100 ML RTUPB IV ONE (13:04)
--- NOTE | 2017-09-20 13:28 | EKG REPORT ---
SEVERITY:- OTHERWISE NORMAL ECG - SINUS RHYTHM BORDERLINE RIGHT AXIS DEVIATION ST ELEV, PROBABLE NORMAL EARLY REPOL PATTERN : Confirmed by: Adair Johnson MD 20-Sep-2017 13:27:59
--- NOTE | 2017-09-20 13:29 | ER Document Report ---
ED General - General Chief Complaint: Chest Pain Stated Complaint: CONGESTION,NAUSEA Time Seen by Provider: 09/20/17 10:08 Mode of Arrival: Ambulatory Information source: Patient Notes: Patient is a 52-year-old, male with COPD who presents to the ER today for shortness of breath, cough, wheezing, fever, chills, sweating for 1 month after being seen here at that time for the same symptoms that he states have just gotten worse. Patient was sent home on Levaquin, Hycodan and prednisone and states that he did not improve. He has been taking his albuterol inhaler at home. He does not take his temperature so does not know if he had a fever. He has no primary care provider. TRAVEL OUTSIDE OF THE [place] IN LAST 30 DAYS: No - Related Data Allergies/Adverse Reactions: Penicillins Allergy (Verified 09/20/17 09:24) mycins Allergy (Unknown, Uncoded 08/19/17 10:53) Past Medical History - General Information source: Patient - Social History Smoking Status: Former Smoker Frequency of alcohol use: Occasional Drug Abuse: None Family History: COPD Patient has suicidal ideation: No Patient has homicidal ideation: No Pulmonary Medical History: Reports: Hx Asthma, Hx COPD, Hx Pneumonia Neurological Medical History: Reports: Hx Seizures - Last Seizure June 2017 Renal/ Medical History: Denies: Hx Peritoneal Dialysis Past Surgical History: Reports: Hx Appendectomy Review of Systems - Review of Systems Constitutional: See HPI EENT: See HPI Cardiovascular: No symptoms reported Respiratory: See HPI Gastrointestinal: No symptoms reported Genitourinary: No symptoms reported Male Genitourinary: No symptoms reported Musculoskeletal: No symptoms reported Skin: No symptoms reported Hematologic/Lymphatic: No symptoms reported Neurological/Psychological: No symptoms reported Physical Exam - Vital signs Vitals: Temp Pulse Resp BP Pulse Ox 97.9 F 98 16 136/77 H 95 09/20/17 09:40 09/20/17 09:40 09/20/17 09:40 09/20/17 09:40 09/20/17 09:40 - Notes Notes: PHYSICAL EXAMINATION: GENERAL: mildly ill appearing, diaphoretic, but is in no acute distress. HEAD: Atraumatic, normocephalic. EYES: Pupils equal round and reactive to light, extraocular movements intact, sclera anicteric, conjunctiva are normal. ENT: ear canals without erythema or foreign body, TMs pearly li with good bony landmarks, nares patent, oropharynx clear without exudates. Moist mucous membranes. airway patent NECK: Normal range of motion, supple without lymphadenopathy LUNGS:wheezing and rhonchi throughout HEART: Regular rate and rhythm without murmurs EXTREMITIES: Normal range of motion, no pitting edema. No cyanosis. NEUROLOGICAL: Cranial nerves grossly intact. Normal sensory/motor exams. PSYCH: Normal mood, normal affect. SKIN: Warm, Dry, normal turgor, no rashes or lesions noted Is Course - Re-evaluation Re-evalutation: 09/20/17 13:28 Is patient's white blood cell count is 18.5, chest x-ray reveals bilateral pneumonitis, clinically patient's lungs sound very rhonchorous. Patient started on IV Levaquin, given breathing treatments and steroids here. Mrs. Duvall, [employer] agrees to admit at this time for observation as patient has failed outpatient treatment with Levaquin and is allergic to penicillins and azithromycin.is - Vital Signs Vital signs: Temp Pulse Resp BP Pulse Ox 97.9 F 98 16 136/77 H 95 09/20/17 09:40 09/20/17 09:40 09/20/17 09:40 09/20/17 09:40 09/20/17 09:40 - Laboratory Result Diagrams: 09/20/17 10:23 09/20/17 10:23 Laboratory results interpreted by me: 09/20/17 09/20/17 10:23 10:23 WBC 18.5 H RBC 5.90 H Hgb 17.5 H Hct 53.0 H RDW 15.7 H Lymphocytes % 11.8 L Absolute Neutrophils 14.3 H Absolute Monocytes 1.7 H Sodium 136.6 L Alkaline Phosphatase 148 H Discharge - Discharge Clinical Impression: COPD exacerbation, Pneumonitis Condition: Stable Disposition: ADMITTED OBSERVATION Admitting Provider: Sunnyist - [facility] Admitted: Medical Floor
[2017-09-20] MEDS ORDERED: METHYLPREDNISOLONE INJ 125 MG/2 ML SDV IV ONE (13:30)
[2017-09-20] MEDS ORDERED: ALBUTEROL SULFATE 0.083% NEB 2.5 MG/3 ML AMPUL NEB ONE (13:30)
[2017-09-20] MEDS ORDERED: ACETAMINOPHEN 325 MG TABLET PO PRN (13:35)
[2017-09-20] MEDS ORDERED: ONDANSETRON HCL INJ/PF 4 MG/2 ML SDV IV PRN (13:35)
[2017-09-20] MEDS ORDERED: BUDESONIDE/FORMOTEROL 160-4.5 MCG 60 PUFF/6 GM MDI IH ONE (13:39)
[2017-09-20] MEDS: HYDROCODONE BIT/HOMATROPINE 5-1.5 MG TABLET PO PRN (14:21)
[2017-09-20] MEDS: METHYLPREDNISOLONE INJ 40 MG/1 ML SDV IV SCH ×2 (14:22→21:24)
[2017-09-20] MEDS ORDERED: ENOXAPARIN SODIUM INJ 40 MG/0.4 ML DISP.SYRIN SUBCUT ONE (15:00)
[2017-09-20] MEDS: KETOROLAC TROMETHAMINE INJ/PF 30 MG/1 ML SDV IV PRN (16:33)
[2017-09-20] MEDS: IPRATROPIUM/ALBUTEROL 0.5-2.5 MG/3 ML AMPUL NEB SCH (17:52)
--- NOTE | 2017-09-20 18:00 | PDOC H&P ---
History of Present Illness Admission Date/PCP: 09/20/17 13:36 Patient complains of: Cough, wheezing and shortness of breath History of Present Illness: WILLIAM MAGALLON is a 52 year old, male with COPD who presents to the ER today for shortness of breath, cough, wheezing, fever, chills, and sweating for 1 month. His symptoms have worsened over the last 3 days. Patient was sent home on Levaquin, Hycodan and prednisone and states that he did not improve 2 weeks ago. He has been taking his albuterol inhaler at home. He does not take his temperature so does not know if he had a fever. He has no primary care provider or insurance Past Medical History Pulmonary Medical History: Reports: Asthma, Chronic Obstructive Pulmonary Disease (COPD), Pneumonia EENT Medical History: Reports: None Neurological Medical History: Reports: Seizures - Last Seizure June 2017 Endocrine Medical History: Reports: None Renal/ Medical History: Reports: None Malignancy Medical History: Reports: None Musculoskeltal Medical History: Reports: None Skin Medical History: Reports: None Psychiatric Medical History: Reports: Depression, Tobacco Dependency Traumatic Medical History: Reports: None Hematology: Reports: None Infectious Medical History: Reports: None Past Surgical History Past Surgical History: Reports: Appendectomy Social History Information Source: Patient Lives with: Family Smoking Status: Never Smoker Cigarettes Packs Per Day: 1 Number of Years Smokin Frequency of Alcohol Use: Rare Hx Recreational Drug Use: Yes Drugs: Marijuana Hx Prescription Drug Abuse: No Family History Family History: COPD Parental Family History Reviewed: Yes Children Family History Reviewed: Yes Sibling(s) Family History Reviewed.: Yes Medication/Allergy Home Medications: Albuterol Sulfate [Albuterol Sulfate 2.5mg/3 mL] 1 vial NEB Q6HP PRN 09/20/17 Albuterol Sulfate [Ventolin HFA MDI 18 GM] 2 puff IH Q4HP PRN 09/20/17 Budesonide/Formoterol Fumarate [Symbicort HFA 160-4.5 mcg Inhaler 6 gm] 2 puff IH Q12 09/20/17 Fluticasone/Salmeterol [Advair 250-50 Diskus 28 dose] 1 puff IH Q12 09/20/17 Allergies/Adverse Reactions: Penicillins Allergy (Verified 09/20/17 09:24) mycins Allergy (Unknown, Uncoded 08/19/17 10:53) Physical Exam Vital Signs: Temp Pulse Resp BP Pulse Ox 97.9 F 98 18 139/97 H 93 09/20/17 09:40 09/20/17 09:40 09/20/17 15:02 09/20/17 15:02 09/20/17 15:02 General appearance: PRESENT: no acute distress, disheveled, well-developed, well -nourished Head exam: PRESENT: atraumatic, normocephalic Eye exam: PRESENT: conjunctiva pink, EOMI, PERRLA. ABSENT: scleral icterus Ear exam: PRESENT: normal external ear exam Mouth exam: PRESENT: moist, tongue midline Neck exam: ABSENT: carotid bruit, JVD, lymphadenopathy, thyromegaly Respiratory exam: PRESENT: rhonchi, symmetrical, tachypnea, wheezes Cardiovascular exam: PRESENT: RRR. ABSENT: diastolic murmur, rubs, systolic murmur Pulses: PRESENT: normal dorsalis pedis pul Vascular exam: PRESENT: normal capillary refill GI/Abdominal exam: PRESENT: normal bowel sounds, soft, tenderness. ABSENT: distended, guarding, mass, organolmegaly, rebound Rectal exam: PRESENT: deferred Extremities exam: PRESENT: full ROM. ABSENT: calf tenderness, clubbing, pedal edema Musculoskeletal exam: PRESENT: ambulatory, full ROM, normal inspection Neurological exam: PRESENT: alert, awake, oriented to person, oriented to place , oriented to time, oriented to situation, CN II-XII grossly intact. ABSENT: motor sensory deficit Psychiatric exam: PRESENT: appropriate affect, normal mood. ABSENT: homicidal ideation, suicidal ideation Skin exam: PRESENT: dry, intact, warm. ABSENT: cyanosis, rash Results Impressions: Chest X-Ray 09/20/17 10:08 IMPRESSION: Findings suggest mild interstitial pneumonitis. Assessment & Plan - Diagnosis (1) COPD exacerbation Is this a current diagnosis for this admission?: Yes Plan: We will continue nebulizers, IV steroids and Levaquin IV. Also started him on inhaled steroid. He has no insurance for medical follow-up care. (2) Pneumonitis Is this a current diagnosis for this admission?: Yes Plan: As above. (3) Seizures Is this a current diagnosis for this admission?: Yes Plan: He has taken no medication sound like they were alcohol related. - Time Time Spent: 50 to 70 Minutes Critical Time spent with patient: 25-34 minutes Medications reviewed and adjusted accordingly: Yes Anticipated discharge: Home Within: within 24 hours
[2017-09-20] MEDS: GUAIFENESIN 600 MG TABLET.SA PO SCH (21:23)
[2017-09-20] MEDS: FAMOTIDINE 20 MG TABLET PO SCH (21:24)
[2017-09-20] MEDS: OXYCODONE HCL IR 5 MG TABLET PO PRN (21:27)
[2017-09-20] MEDS: IPRATROPIUM/ALBUTEROL 0.5-2.5 MG/3 ML AMPUL NEB PRN (22:47)
[2017-09-20] MEDS ORDERED: NICOTINE 14 MG/24 HR PATCH.TD24 TD ONE (23:00)
[2017-09-21] MEDS: IPRATROPIUM/ALBUTEROL 0.5-2.5 MG/3 ML AMPUL NEB SCH ×4 (00:06→23:29)
[2017-09-21] MEDS: TEMAZEPAM 15 MG CAPSULE PO PRN ×2 (00:24→22:30)
[2017-09-21] MEDS: HYDROCODONE BIT/HOMATROPINE 5-1.5 MG TABLET PO PRN ×2 (00:25→06:51)
[2017-09-21] MEDS: KETOROLAC TROMETHAMINE INJ/PF 30 MG/1 ML SDV IV PRN (03:09)
[2017-09-21] MEDS: IPRATROPIUM/ALBUTEROL 0.5-2.5 MG/3 ML AMPUL NEB PRN (03:31)
[2017-09-21] MEDS: OXYCODONE HCL IR 5 MG TABLET PO PRN (04:07)
[2017-09-21 05:31] LABS: HEMATOCRIT 50.3 % (37.9-51.0); HEMOGLOBIN 16.7 g/dL (13.5-17.0); MEAN CORPUSCULAR HEMOGLOBIN 29.8 pg (27.0-33.4); MEAN CORPUSCULAR HGB CONC 33.2 g/dL (32.0-36.0); MEAN CORPUSCULAR VOLUME 90 fl (80-97); PLATELET COUNT 190 10^3/uL (150-450); RED BLOOD COUNT 5.61 10^6/uL (4.35-5.55); RED CELL DISTRIBUTION WIDTH 15.3 % (11.5-14.0); WHITE BLOOD COUNT 14.1 10^3/uL (4.0-10.5)
[2017-09-21 05:50] LABS: ANION GAP 13 (5-19); BLOOD UREA NITROGEN 11 mg/dL (7-20); CALCIUM 9.6 mg/dL (8.4-10.2); CARBON DIOXIDE 22 mmol/L (22-30); CHLORIDE 100 mmol/L (98-107); GLUCOSE 282 mg/dL (75-110); POTASSIUM 4.9 mmol/L (3.6-5.0); SODIUM 134.5 mmol/L (137-145)
[2017-09-21] MEDS: METHYLPREDNISOLONE INJ 40 MG/1 ML SDV IV SCH ×3 (06:51→22:31)
[2017-09-21] MEDS ORDERED: LEVOFLOXACIN 750 MG/D5W RTU 750 MG/150 ML RTUPB IV SCH (10:00)
[2017-09-21] MEDS ORDERED: ENOXAPARIN SODIUM INJ 40 MG/0.4 ML DISP.SYRIN SUBCUT SCH (10:00)
--- NOTE | 2017-09-21 10:14 | Physician Advisory Note ---
Physician Advisor ProgressNote .: Pursuant to the plan for Radames Augustin, I have reviewed the medical record for this patient. Physician Advisor Statement: Please consider documenting, if you agree: 1. "Acute bronchitis", or what is being tx'd with IV abx (since COPD exac.s don 't in & of themselves require abx unless bacterial infxn also suspected) 2. "acute hyponatremia, suspect due to " 3. Please clarify: H&P states both "Never smoker" & "tobacco dependency", "1 ppd" ... 4. Medical necessity: If cannot d/c pt today -> "Patient is not yet safe for d /c on 09/21 because ", or "resp status not yet back to baseline", "still needing O2", or "I AM CONCERNED about ", ... - & then may change to Inpatient status. Status: see above. THanks! CK
--- NOTE | 2017-09-21 11:00 | PDOC PROGRESS REPORT ---
Subjective Progress Note for:: 09/21/17 Subjective:: Not feeling much better today. Continues to have audible wheezing and SOB with exertion. Today is complaining of left sided chest and arm pain. Patient states this is not a new symptom and has been been going on "for last couple weeks". Denies diaphoresis, palpitations. Troponins were not checked this admission. Today is also complaining of whole body pain that is not relieved with Tylenol, Toradol, or Oxycodone. Does not want Morphine or other opioids as these "knock him out". Reason For Visit: EXACERBATION OF COPD/BILATERAL PNEUMONITIS Physical Exam Vital Signs: Temp Pulse Resp BP Pulse Ox 98.1 F 94 22 H 146/78 H 94 09/20/17 23:30 09/21/17 03:30 09/21/17 03:30 09/20/17 23:30 09/21/17 03:30 Intake & Output 09/20/17 09/21/17 09/22/17 06:59 06:59 06:59 Intake Total 805 Balance 805 Weight 66.4 kg General appearance: PRESENT: no acute distress, cooperative, well-developed Head exam: PRESENT: normocephalic Mouth exam: PRESENT: moist Respiratory exam: PRESENT: rhonchi - Diffuse, wheezes Cardiovascular exam: PRESENT: RRR, +S1, +S2. ABSENT: systolic murmur GI/Abdominal exam: PRESENT: soft. ABSENT: tenderness Neurological exam: PRESENT: alert, awake, CN II-XII grossly intact Psychiatric exam: PRESENT: appropriate affect Results Laboratory Results: 09/21/17 04:54 09/21/17 04:54 09/21/17 09/21/17 04:54 04:54 WBC 14.1 H RBC 5.61 H Hgb 16.7 Hct 50.3 MCV 90 MCH 29.8 MCHC 33.2 RDW 15.3 H Plt Count 190 Sodium 134.5 L Potassium 4.9 Chloride 100 Carbon Dioxide 22 Anion Gap 13 BUN 11 Creatinine 0.65 Est GFR ( Amer) > 60 Est GFR (Non-Af Amer) > 60 Glucose 282 H Calcium 9.6 Impressions: Chest X-Ray 09/20/17 10:08 IMPRESSION: Findings suggest mild interstitial pneumonitis. Assessment & Plan - Diagnosis (1) Pneumonitis Is this a current diagnosis for this admission?: Yes Plan: Admission CXR with interstitial pneumonitis. Afebrile and HDS. Blood cultures negative - Most likely viral however can not rule out bacterial infection. - Given continued rhonchi and lack of improvement of symptoms, continue Levaquin , likely can discontinue after 3-5 day course] - Continue IV Methylprednisolone for 1 additional day - Supportive care with Duonebs, Mucinex, and Hycodan (2) COPD (chronic obstructive pulmonary disease) Qualifiers: COPD type: COPD with acute exacerbation Qualified Code(s): J44.1 - Chronic obstructive pulmonary disease with (acute) exacerbation Is this a current diagnosis for this admission?: Yes Plan: Per above. Long standing smoking history (3) Chest pain Qualifiers: Chest pain type: chest pain on breathing Qualified Code(s): R07.1 - Chest pain on breathing; R07.81 - Pleurodynia Is this a current diagnosis for this admission?: Yes Plan: Most likely related to respiratory infection. However given cardiac history, will re-check EKG and troponin to ensure this is not cardiac source. Admission EKG reviewed and no evidence of ST- elevation (4) Seizures Is this a current diagnosis for this admission?: Yes Plan: EtOH related. No currently on anti-epileptics (5) Hyponatremia Plan: Likely chronic given history of EtOh use. CTM. - Time Time Spent with patient: 15-24 minutes Smoking Cessation Education: 3 to 10 minutes Anticipated discharge: Home Within: within 48 hours - Inpatient Certification Medical Necessity: Need for Nebulizer Therapy and Monitoring of Response, Need for IV Antibiotics
[2017-09-21] MEDS: FAMOTIDINE 20 MG TABLET PO SCH ×2 (11:46→22:30)
[2017-09-21] MEDS: GUAIFENESIN 600 MG TABLET.SA PO SCH ×2 (11:46→22:30)
[2017-09-21] MEDS: LEVOFLOXACIN 750 MG/D5W RTU 750 MG/150 ML RTUPB IV SCH (11:46)
[2017-09-21] MEDS: ENOXAPARIN SODIUM INJ 40 MG/0.4 ML DISP.SYRIN SUBCUT SCH (11:48)
[2017-09-21] MEDS ORDERED: DIPHENHYDRAMINE HCL 50 MG/ML VIAL IV ONE (14:30)
[2017-09-21] MEDS ORDERED: PROCHLORPERAZINE EDISYLATE INJ 10 MG/2 ML VIAL IV ONE (15:00)
--- NOTE | 2017-09-21 16:18 | PDOC PROGRESS REPORT ---
Subjective Progress Note for:: 09/21/17 Subjective:: c/o bilateral groin bulge Reason For Visit: EXACERBATION OF COPD/BILATERAL PNEUMONITIS Physical Exam Vital Signs: Temp Pulse Resp BP Pulse Ox 98.1 F 85 18 146/78 H 95 09/20/17 23:30 09/21/17 16:04 09/21/17 16:04 09/20/17 23:30 09/21/17 16:04 Intake & Output 09/20/17 09/21/17 09/22/17 06:59 06:59 06:59 Intake Total 805 Balance 805 Weight 66.4 kg General appearance: PRESENT: mild distress Neck exam: PRESENT: full ROM Respiratory exam: PRESENT: decreased breath sounds, wheezes Cardiovascular exam: PRESENT: RRR GI/Abdominal exam: PRESENT: soft, other - bilateral reducible groin hernia L>R Results Laboratory Results: 09/21/17 04:54 09/21/17 04:54 09/21/17 09/21/17 04:54 04:54 WBC 14.1 H RBC 5.61 H Hgb 16.7 Hct 50.3 MCV 90 MCH 29.8 MCHC 33.2 RDW 15.3 H Plt Count 190 Sodium 134.5 L Potassium 4.9 Chloride 100 Carbon Dioxide 22 Anion Gap 13 BUN 11 Creatinine 0.65 Est GFR ( Amer) > 60 Est GFR (Non-Af Amer) > 60 Glucose 282 H Calcium 9.6 09/21/17 11:55 Troponin I Cancelled Impressions: Chest X-Ray 09/20/17 10:08 IMPRESSION: Findings suggest mild interstitial pneumonitis. Assessment & Plan - Diagnosis (1) Inguinal hernia bilateral, non-recurrent Qualifiers: Obstruction and gangrene presence: without obstruction or gangrene Recurrence: non-recurrent Qualified Code(s): K40.20 - Bilateral inguinal hernia, without obstruction or gangrene, not specified as recurrent Is this a current diagnosis for this admission?: Yes - Plan Summary Plan Summary: A/ Bilateral inguinal hernia, asymptomatic and reducible, L>R Severe COPD P/ Due to the severe respiratory status and the lack of acute symptoms, my recommendation is to postpone surgical repair of the bilateral inguinal hernia for the time being. The procedure should be done electively, after discharge and, definitively, after this exacerbation of the COPD has resolved and the patient has been medically cleared. I am recommending that the patient return to the surgery clinic 2 weeks after discharge to plan the bilateral ingujinal herniorraphy. I will sign off. Please, call me with questions
[2017-09-21] MEDS ORDERED: NICOTINE 14 MG/24 HR PATCH.TD24 TD ONE (17:00)
--- NOTE | 2017-09-21 18:44 | EKG REPORT ---
SEVERITY:- OTHERWISE NORMAL ECG - SINUS RHYTHM BORDERLINE RIGHT AXIS DEVIATION : Confirmed by: Adair Johnson MD 21-Sep-2017 18:44:10
[2017-09-21] MEDS: TRAMADOL HCL 50 MG TABLET PO PRN (22:31)
[2017-09-22] MEDS: METHYLPREDNISOLONE INJ 40 MG/1 ML SDV IV SCH ×3 (06:46→21:42)
[2017-09-22] MEDS: TRAMADOL HCL 50 MG TABLET PO PRN (06:46)
[2017-09-22] MEDS: ENOXAPARIN SODIUM INJ 40 MG/0.4 ML DISP.SYRIN SUBCUT SCH (08:24)
[2017-09-22] MEDS: IPRATROPIUM/ALBUTEROL 0.5-2.5 MG/3 ML AMPUL NEB SCH ×3 (08:31→20:04)
[2017-09-22] MEDS: FAMOTIDINE 20 MG TABLET PO SCH ×2 (09:29→21:41)
[2017-09-22] MEDS: GUAIFENESIN 600 MG TABLET.SA PO SCH ×2 (09:30→21:42)
[2017-09-22] MEDS: NICOTINE 14 MG/24 HR PATCH.TD24 TD SCH (09:30)
[2017-09-22] MEDS ORDERED: BUDESONIDE/FORMOTEROL 160-4.5 MCG 60 PUFF/6 GM MDI IH ONE (11:30)
[2017-09-22] MEDS: LEVOFLOXACIN 750 MG/D5W RTU 750 MG/150 ML RTUPB IV SCH (11:37)
[2017-09-22] MEDS: DIAZEPAM 2 MG TABLET PO SCH ×2 (11:38→18:27)
[2017-09-22] MEDS ORDERED: LEVALBUTEROL HCL NEB 1.25 MG/3 ML AMPUL NEB PRN (13:04)
[2017-09-22] MEDS: OXYCODONE HCL IR 5 MG TABLET PO PRN ×2 (13:21→19:16)
--- NOTE | 2017-09-22 13:24 | PDOC PROGRESS REPORT ---
Subjective Progress Note for:: 09/22/17 Subjective:: The patient is a 52-year-old male with a history of asthma, COPD, seizures, depression, and tobacco dependency who was admitted on 09/20/17 for a COPD exacerbation. The patient was seen on morning rounds. He is found sitting upright in bed on room air. He has audible wheezing that can be heard from the doorway. He is not tachypneic and can speak in full sentences. He immediately requests to be discharged to home. The patient is encouraged to remain inpatient for further treatment of his wheezing to which he finally agrees. His primary concerns at this point are the inguinal hernias with recommendation for surgical correction as an outpatient. The patient states that he does not have health insurance and cannot afford the procedure or the time off of work. He has no other questions or concerns at this time. Reason For Visit: EXACERBATION OF COPD/BILATERAL PNEUMONITIS Physical Exam Vital Signs: Temp Pulse Resp BP Pulse Ox 97.9 F 73 16 125/65 98 09/21/17 23:13 09/22/17 08:31 09/22/17 08:31 09/21/17 23:13 09/22/17 08:31 Intake & Output 09/21/17 09/22/17 09/23/17 06:59 06:59 06:59 Intake Total 805 1737 Balance 805 1737 Weight 66.4 kg 68.3 kg General appearance: PRESENT: no acute distress, well-developed, well-nourished Head exam: PRESENT: atraumatic, normocephalic Eye exam: PRESENT: conjunctiva pink, EOMI, PERRLA. ABSENT: scleral icterus Ear exam: PRESENT: normal external ear exam Mouth exam: PRESENT: moist, tongue midline Teeth exam: PRESENT: dental caries, poor dentation Neck exam: ABSENT: carotid bruit, JVD, lymphadenopathy, thyromegaly Respiratory exam: PRESENT: prolonged expiratory phas, symmetrical, unlabored, wheezes - Inspiratory and expiratory wheezing throughout. ABSENT: rales, rhonchi Cardiovascular exam: PRESENT: RRR, +S1, +S2. ABSENT: diastolic murmur, rubs, systolic murmur Pulses: PRESENT: normal dorsalis pedis pul Vascular exam: PRESENT: normal capillary refill GI/Abdominal exam: PRESENT: normal bowel sounds, soft. ABSENT: distended, guarding, mass, organolmegaly, rebound, tenderness Rectal exam: PRESENT: deferred Extremities exam: PRESENT: full ROM. ABSENT: calf tenderness, clubbing, pedal edema Neurological exam: PRESENT: alert, awake, oriented to person, oriented to place , oriented to time, oriented to situation, CN II-XII grossly intact. ABSENT: motor sensory deficit Psychiatric exam: PRESENT: appropriate affect, normal mood. ABSENT: homicidal ideation, suicidal ideation Skin exam: PRESENT: dry, intact, warm. ABSENT: cyanosis, rash Results Laboratory Results: 09/21/17 04:54 09/21/17 04:54 09/21/17 09/21/17 11:55 15:38 Troponin I Cancelled < 0.012 Impressions: Chest X-Ray 09/20/17 10:08 IMPRESSION: Findings suggest mild interstitial pneumonitis. Assessment & Plan - Diagnosis (1) Pneumonitis Is this a current diagnosis for this admission?: Yes Plan: Admission chest x-ray with interstitial pneumonitis. The patient is afebrile and WBCs are trending down. Blood cultures: No growth at 24 hours Sputum culture: Gram-positive cocci, normal respiratory jayjay. Supplemental oxygen as needed to keep saturations greater than 88% Continue Levaquin. We will continue IV Solu-Medrol as the patient continues to have significant wheezing; hopefully can begin weaning soon as he is symptomatically feeling better We will continue scheduled duo nebs. Have added Xopenex as needed shortness of breath and wheezing. Continue Mucinex and Hycodan. Incentive spirometry and flutter valve to bedside. (2) COPD (chronic obstructive pulmonary disease) Qualifiers: COPD type: COPD with acute exacerbation Qualified Code(s): J44.1 - Chronic obstructive pulmonary disease with (acute) exacerbation Is this a current diagnosis for this admission?: Yes Plan: Plan as above. (3) Chest pain Qualifiers: Chest pain type: chest pain on breathing Qualified Code(s): R07.1 - Chest pain on breathing; R07.81 - Pleurodynia Is this a current diagnosis for this admission?: Yes Plan: Most likely related to respiratory infection; the patient states that his pain is reproducible with movement of his left arm and occurs with cough and deep breath. However given the patient's cardiac history is EKG and troponins were rechecked and found to be reassuring. EKG shows no evidence of ST segment elevation or depression. Troponin is normal. (4) Hyponatremia Is this a current diagnosis for this admission?: Yes Plan: Stable; likely secondary to continued EtOH use. We will continue to monitor. (5) Inguinal hernia bilateral, non-recurrent Qualifiers: Obstruction and gangrene presence: without obstruction or gangrene Recurrence: non-recurrent Qualified Code(s): K40.20 - Bilateral inguinal hernia, without obstruction or gangrene, not specified as recurrent Is this a current diagnosis for this admission?: Yes Plan: Surgery was consulted; they have since signed off. Surgery recommends that the patient return to the surgery clinic 2 weeks following discharge to plan a bilateral inguinal herniorrhaphy. (6) Seizures Is this a current diagnosis for this admission?: Yes Plan: Secondary to EtOH withdrawal. The patient endorses continuous alcohol use for management of his chronic pain. We will place the patient on low-dose scheduled Valium for withdrawal prevention. - Inpatient Certification Based on my medical assessment, after consideration of the patient's comorbidities, presenting symptoms, or acuity I expect that the services needed warrant INPATIENT care.: Yes I certify that my determination is in accordance with my understanding of Medicare's requirements for reasonable and necessary INPATIENT services [42 CFR 412.3e].: Yes Medical Necessity: Failure to Improve With Outpatient Therapy, Need for Nebulizer Therapy and Monitoring of Response
[2017-09-22] MEDS: KETOROLAC TROMETHAMINE INJ/PF 30 MG/1 ML SDV IV PRN ×2 (14:30→21:46)
[2017-09-22] MEDS: BUDESONIDE/FORMOTEROL 160-4.5 MCG 60 PUFF/6 GM MDI IH SCH (21:42)
[2017-09-22] MEDS: TEMAZEPAM 15 MG CAPSULE PO PRN (21:46)
[2017-09-23] MEDS: DIAZEPAM 2 MG TABLET PO SCH ×3 (00:25→11:29)
[2017-09-23] MEDS: IPRATROPIUM/ALBUTEROL 0.5-2.5 MG/3 ML AMPUL NEB SCH ×2 (02:15→08:26)
[2017-09-23] MEDS: METHYLPREDNISOLONE INJ 40 MG/1 ML SDV IV SCH (05:58)
[2017-09-23] MEDS: OXYCODONE HCL IR 5 MG TABLET PO PRN (05:59)
[2017-09-23 06:08] LABS: HEMATOCRIT 50.6 % (37.9-51.0); HEMOGLOBIN 16.8 g/dL (13.5-17.0); MEAN CORPUSCULAR HGB CONC 33.1 g/dL (32.0-36.0); MEAN CORPUSCULAR VOLUME 91 fl (80-97); PLATELET COUNT 247 10^3/uL (150-450); RED CELL DISTRIBUTION WIDTH 15.6 % (11.5-14.0); WHITE BLOOD COUNT 15.8 10^3/uL (4.0-10.5)
[2017-09-23 06:30] LABS: ANION GAP 14 (5-19); BLOOD UREA NITROGEN 16 mg/dL (7-20); CALCIUM 9.9 mg/dL (8.4-10.2); CARBON DIOXIDE 24 mmol/L (22-30); CHLORIDE 101 mmol/L (98-107); GLUCOSE 105 mg/dL (75-110); POTASSIUM 4.6 mmol/L (3.6-5.0)
[2017-09-23] MEDS: ENOXAPARIN SODIUM INJ 40 MG/0.4 ML DISP.SYRIN SUBCUT SCH (07:53)
[2017-09-23] MEDS ORDERED: LEVOFLOXACIN 750 MG TABLET PO SCH (10:00)
[2017-09-23] MEDS: BUDESONIDE/FORMOTEROL 160-4.5 MCG 60 PUFF/6 GM MDI IH SCH (11:41)
[2017-09-23] MEDS: GUAIFENESIN 600 MG TABLET.SA PO SCH (11:42)
[2017-09-23] MEDS: FAMOTIDINE 20 MG TABLET PO SCH (11:42)
[2017-09-23] MEDS: NICOTINE 14 MG/24 HR PATCH.TD24 TD SCH (11:43)
[2017-09-23 12:02] VITALS: BP 148/62
--- NOTE | 2017-09-23 14:03 | DISCHARGE SUMMARY E ---
Discharge Summary NAME: WILLIAM MAGALLON : 1965 AGE: 52Y ADMITTED: 09/20/2017 DISCHARGED: 09/23/2017 CODE STATUS: Full code. PRIMARY CARE PROVIDER: [facility] FINAL DIAGNOSES: 1. Chronic obstructive pulmonary disease exacerbation. 2. Acute on chronic hypoxemic respiratory failure, which has resolved. 3. Interstitial pneumonitis. 4. Hyponatremia secondary to alcohol use. 5. Alcohol dependency continuous. 6. History of seizures secondary to alcohol withdrawal in the past. DISCHARGE MEDICATIONS: 1. Albuterol nebs, 2.5 mg neb, every 6 hours p.r.n., 30 tablets, 0 refills. 2. Albuterol HFA 2 puffs inhalation every 4 hours p.r.n., 1 inhaler, 0 refills. 3. Doxycycline 100 mg p.o. b.i.d., 10 capsules, 0 refills. 4. Prednisone 60 mg taper. 5. Symbicort HFA 2 puffs inhalation every 12 hours. DIET: As tolerated. ACTIVITY: Fair. CONDITION: Good. DIAGNOSTICS: Hematology obtained on 09/23/2017: WBC 15.8, hemoglobin 16.8, hematocrit 50.6, platelet count 247,000. Chemistry panel obtained on 09/23/2017: Sodium 139, potassium 4.9, chloride 101, carbon dioxide 24, BUN 16, creatinine 0.69, glucose 105. Calcium 9.9. Bilirubin is 0.9, AST 18, ALT 23, alk phos 148. Troponin 0.012. Total protein 7.7, albumin 4.5. MICROBIOLOGY: Blood culture sent on 09/20/2017, revealed no growth. Sputum culture sent on 09/20/2017, revealed Streptococcus pneumoniae. Chest x-ray on 09/20/2017, revealed mild interstitial pneumonitis. EKG obtained on 09/20/2017, revealed sinus rhythm. EKG obtained on 09/21/2017, revealed sinus rhythm. PHYSICAL EXAMINATION: GENERAL: On examination, the patient is a well-developed, well-nourished 52-year-old male who is awake, alert and oriented to person, place, time, and situation. She is verbal, conversational. Does not appear to be in acute distress. VITAL SIGNS: Temperature 97.9, pulse 72, respirations 18, blood pressure 132/51, oxygen saturation 98% on room air. SKIN: Warm and dry, no rashes. Not diaphoretic. HEENT: Pupils equal, round and reactive to light and accommodation. Conjunctivae pink. There is no evidence of JVP. CARDIOVASCULAR: Heart is regular. There is no murmur or rub. CHEST: The patient does have expiratory wheezes noted throughout both lung lion, symmetrical, unlabored, able to fully complete sentences. ABDOMEN: Soft, nontender, nondistended. BACK: No CVA tenderness or sacral edema. EXTREMITIES: No clubbing, cyanosis, or edema. PSYCHIATRIC: The patient is absolutely adamant for discharge. He has threatened to leave AMA. HISTORY OF PRESENT ILLNESS: The patient is a 52-year-old male with a past medical history of chronic obstructive pulmonary disease and alcohol dependency. The patient presented to the Emergency Department with a chief complaint of shortness of breath. The patient was noted to have cough, wheezing, fevers, chills, and sweating for approximately a month. The patient said it had worsened over the past 3 days. The patient was sent home on Levaquin, hydrocodone, and prednisone, and patient stated that his symptoms did not improve for about 2 weeks. The patient did not take these medications. The patient had been taking his albuterol inhaler at home though. The patient is uncertain if he had a fever but was unable to fully complete a sentence and was obviously in distress, and the patient was referred to the hospitalist for admission and management. HOSPITAL COURSE: The patient was admitted to continuous telemetry unit. The patient was placed on scheduled p.r.n. nebulizers with cover with Levaquin, additionally, was also started on steroids. The patient did have significant improvement of symptoms. The patient's agitation was addressed with Valium, and the patient is absolutely adamant for discharge. The patient will be referred [facility]. The patient is urged to please get at least nebulizers and steroids, and the patient is ready for discharge. DISCHARGE PLAN: The patient is advised to follow up with the [facility] within 1 week for hospital followup. Time spent on this discharge including assessment, plan, physical examination, patient education, review of records, and family review of records is 25 minutes. DICTATING PHYSICIAN: MINE PORTILLO NP [id number] [facility]#: [id number] ID: [id number] JOB#: [id number] ACCT: [id number] cc:JOSSY MONSALVE M.D. >
== END 2017-09-23 12:35 | disposition home or self-care (01) | DRG 190 ==
LOC: ER 09:22 → EH 13:36 → 4N 23:23 → OBSVTOIN 09-22 13:06
PROVIDERS: ADMIT Internal Medicine; ATTEND Internal Medicine
PROC: 3E0F73Z Introduction of Anti-inflammatory into Respiratory Tract, Via Natural or Artificial Opening (ICD-10-PCS; principal; 2017-09-20)
DX: J44.1 Chronic obstructive pulmonary disease with (acute) exacerbation (principal); J96.21 Acute and chronic respiratory failure with hypoxia; E87.1 Hypo-osmolality and hyponatremia; G40.509 Epileptic seizures related to external causes, not intractable, without status epilepticus; J84.89 Other specified interstitial pulmonary diseases; F10.20 Alcohol dependence, uncomplicated; B95.3 Streptococcus pneumoniae as the cause of diseases classified elsewhere; F32.9 Major depressive disorder, single episode, unspecified; F17.210 Nicotine dependence, cigarettes, uncomplicated; J44.0 Chronic obstructive pulmonary disease with (acute) lower respiratory infection; K40.20 Bilateral inguinal hernia, without obstruction or gangrene, not specified as recurrent; R07.81 Pleurodynia; Z72.89 Other problems related to lifestyle; Z79.899 Other long term (current) drug therapy; Z83.6 Family history of other diseases of the respiratory system; Z88.3 Allergy status to other anti-infective agents; Z88.0 Allergy status to penicillin
CPT/HCPCS: 36415; 71046; 80048; 80053; 84484; 85025; 85027; 87040; 87070; 87186; 87205; 93005; 93010; 94640; 94667; 94799; 96365; 96372; 96375; 99285; G0378; J0780; J1200; J1650; J1885; J1956; J2920; J3490; J7620